=== PATIENT | female | born 1990 | race Caucasian/White ===

== ENCOUNTER 2018-02-15 21:33 | Emergency (ER) | payer OTHER ==
[2018-02-15 21:42] VITALS: RESP 18
[2018-02-15] MEDS ORDERED: SODIUM CHLORIDE 0.9% 1,000 ML IV STA ×2 (21:43)
[2018-02-15] MEDS ORDERED: SODIUM CHLORIDE 0.9% 500 ML IV STA (21:43)
[2018-02-15] MEDS ORDERED: LORazepam 2 MG/ML INJ IV STA (21:43)
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
[2018-02-15 21:56] LABS: Basophils # (A) 0.1 k/uL (0-0.2); Basophils % (A) 1 %; Eosinophils # (A) 0.1 k/uL (0-0.7); Eosinophils % (A) 1 %; HCT 42.4 % (34.0-46.0); HGB 14.5 gm/dL (11.4-16.0); Lymphocytes # (A) 1.3 k/uL (1.0-4.8); Lymphocytes % (A) 16 %; MCH 30.7 pg (25.0-35.0); MCHC 34.3 g/dL (31.0-37.0); MCV 89.3 fL (80.0-100.0); Mean Platelet Volume 7.2; Monocytes # (A) 0.4 k/uL (0-1.0); Monocytes % (A) 5 %; Neutrophils # (A) 6.1 k/uL (1.3-7.7); Neutrophils % (A) 76 %; Platelet Count 243 k/uL (150-450); RBC 4.74 m/uL (3.80-5.40); RDW 12.8 % (11.5-15.5); WBC 8.1 k/uL (3.8-10.6)
[2018-02-15 22:07] LABS: ALT 24 U/L (9-52); AST 18 U/L (14-36); Albumin 4.3 g/dL (3.5-5.0); Alkaline Phosphatase 62 U/L (38-126); Anion Gap 11 mmol/L; Blood Urea Nitrogen 9 mg/dL (7-17); Calcium 9.3 mg/dL (8.4-10.2); Carbon Dioxide 25 mmol/L (22-30); Chloride 105 mmol/L (98-107); Glucose 102 mg/dL (74-99); Sodium 141 mmol/L (137-145); Total Bilirubin 0.2 mg/dL (0.2-1.3); Total Protein 7.1 g/dL (6.3-8.2)
--- NOTE | 2018-02-15 22:36 | XR ---
EXAMINATION TYPE: XR chest 2V DATE OF EXAM: 02/15/2018 COMPARISON: 07/25/2008 HISTORY: Chest pain TECHNIQUE: Frontal and lateral views of the chest are obtained. FINDINGS: Heart and mediastinum are normal. Lungs are clear. Diaphragm is normal. Bony thorax is int act. There are chest leads. There is left axillary neurostimulator noted. IMPRESSION: Normal chest. No change.
[2018-02-15] MEDS ORDERED: KETOROLAC 30 MG/ML 1 ML VIAL IVP STA (22:40)
--- NOTE | 2018-02-15 22:45 | XR ---
EXAMINATION TYPE: XR cervical spine comp DATE OF EXAM: 02/15/2018 COMPARISON: NONE HISTORY: Neck pain TECHNIQUE: 5 views FINDINGS: Cervical vertebra have normal alignment. Posterior elements are intact. There is neurostimu lator over the left side of the neck. Atlantoaxial facet joint is normal. There are no cervical ribs. IMPRESSION: Normal cervical spine exam. I do not have old exam of the neurostimulator to compare.
[2018-02-15 23:38] VITALS: BP 94/54; PULSE 70; TEMP 97.9
== END 2018-02-15 23:42 | disposition home or self-care (01) ==
LOC: EC 21:33
DX: G40.909 Epilepsy, unspecified, not intractable, without status epilepticus (principal); Z91.018 Allergy to other foods; R53.83 Other fatigue; Z95.828 Presence of other vascular implants and grafts; Y08.89XA Assault by other specified means, initial encounter
CPT/HCPCS: 36415; 93005; 80053; 80201; 85025; 72050; 71046; 99285; 96374; 96375; 96361 ×2; J2060; J1885

== ENCOUNTER 2018-03-17 18:46 | Emergency (ER) | payer OTHER ==
[2018-03-17 18:55] VITALS: RESP 18; TEMP 98.7
[2018-03-17] MEDS ORDERED: ONDANSETRON 4 MG ODT STARTER PACK 2 TAB BTL PO STA (19:19)
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
[2018-03-17] MEDS ORDERED: SULFAMETH-TMP DS STARTER PACK 2 TAB BTL PO STA (21:05)
[2018-03-17 21:23] VITALS: BP 117/65; PULSE 73
== END 2018-03-17 21:22 | disposition home or self-care (01) ==
LOC: EC 18:46
DX: L03.114 Cellulitis of left upper limb (principal); R11.2 Nausea with vomiting, unspecified; G40.909 Epilepsy, unspecified, not intractable, without status epilepticus; Z79.899 Other long term (current) drug therapy; Z91.018 Allergy to other foods
CPT/HCPCS: 81025; 87070; 87205; 99284; S0119; 87077; 87186

== ENCOUNTER → 2018-04-18 | Outpatient (CLI) | payer OTHER ==
--- NOTE | 2018-04-18 15:16 | XR ---
EXAMINATION TYPE: XR lumbosacral spine min 4V DATE OF EXAM: 04/18/2018 COMPARISON: None HISTORY: Polyarthritis TECHNIQUE: Five-view lumbar spine FINDINGS: There 5 lumbar-type vertebral bodies. The pedicles are intact. There is attempted lumbariza tion of S1. There is some mild rotoscoliosis. No spondylolytic defects are evident. Facet degenerativ e changes present lower lumbar spine. Disc heights are preserved. Vertebral body heights are preserve d. IMPRESSION: 1. No acute osseous abnormality lumbar spine
--- NOTE | 2018-04-18 15:18 | XR ---
EXAMINATION TYPE: XR pelvis AP view DATE OF EXAM: 04/18/2018 COMPARISON: None HISTORY: Polyarthritis TECHNIQUE: AP pelvis FINDINGS: Femoral heads articulate with the acetabulum. No acute fractures are evident. Sacroiliac ahsan ints and symphysis pubis are normal. There is a sclerotic area with ill-defined margins within the mi d right ilium above the right hip. IMPRESSION: 1. No acute osseous abnormality. 2. Sclerotic lesion right mid ilium above the right hip joint space.
--- NOTE | 2018-04-18 15:19 | XR ---
EXAMINATION TYPE: XR foot complete bilateral DATE OF EXAM: 04/18/2018 COMPARISON: None HISTORY: Polyarthritis TECHNIQUE: Bilateral feet 3 views each FINDINGS: Right foot: Mild hallux valgus deformity is present. Joint spaces are preserved. No acute fractures a re evident. Soft tissues are normal. Left foot: Mild hallux valgus deformity is present. Joint spaces are preserved. No acute fractures ar e evident. Plantar calcaneal heel spur is present. Soft tissues are normal. IMPRESSION: 1. No acute osseous abnormality. 2. Bilateral hallux valgus deformity. 3. Left calcaneal heel spur
--- NOTE | 2018-04-18 15:20 | XR ---
EXAMINATION TYPE: XR ankle complete bilateral DATE OF EXAM: 04/18/2018 COMPARISON: None HISTORY: Polyarthritis TECHNIQUE: Three-view bilateral ankles FINDINGS: Left ankle: Ankle mortise is intact. Soft tissues are normal. No acute fractures are evident. Plantar calcaneal heel spur is present. Right ankle: Ankle mortise is intact. Soft tissues are normal. No acute fractures are evident. IMPRESSION: 1. No acute osseous abnormalities bilateral ankles. 2. Left calcaneal heel spur
== END | disposition home or self-care (01) ==
LOC: RADXRMAIN 14:08
PROVIDERS: ATTEND Internal Medicine Rheumatology
DX: M25.851 Other specified joint disorders, right hip (principal); M20.12 Hallux valgus (acquired), left foot; M20.11 Hallux valgus (acquired), right foot; M77.32 Calcaneal spur, left foot; M13.0 Polyarthritis, unspecified
CPT/HCPCS: 72110; 72170

== ENCOUNTER 2018-06-06 17:04 | Emergency (ER) | payer OTHER ==
[2018-06-06 17:17] VITALS: TEMP 98.4
[2018-06-06] MEDS ORDERED: METOCLOPRAMIDE 5 MG/ML 2 ML VIAL IM STA (17:26)
--- NOTE | 2018-06-06 17:28 | ED ---
General Adult HPI - General Chief complaint: Headache Stated complaint: Head injury from seizure yesterday Time Seen by Provider: 06/06/18 17:22 Source: patient, RN notes reviewed Mode of arrival: ambulatory Limitations: no limitations - History of Present Illness Initial comments: Patient is a pleasant 27-year-old female presenting to the emergency department with complaint of headache. Onset of headache was following seizure yesterday. Patient does have chronic seizures and does have a vagus nerve stimulator for this. Patient believes she hit her head during seizure yesterday and is having diffuse discomfort since that time. Discomfort is moderate to severe. Patient has some nausea with no vomiting. Patient has been taking her seizure medication. No weakness. No confusion. No vomiting. No fever. - Related Data Home Medications Medication Instructions Recorded Confirmed SUMAtriptan SUCCINATE [Imitrex] 100 mg PO DAILY PRN 02/15/18 06/06/18 Eslicarbazepine Acetate [Aptiom] 800 mg PO BID 06/06/18 06/06/18 Topiramate [Trokendi Xr] 200 mg PO BID 06/06/18 06/06/18 Allergies Allergy/AdvReac Type Severity Reaction Status Date / Time strawberries Allergy Rash/Hives Uncoded 06/06/18 17:17 Review of Systems ROS Statement: Those systems with pertinent positive or pertinent negative responses have been documented in the HPI. ROS Other: All systems not noted in ROS Statement are negative. Constitutional: Denies: fever Eyes: Denies: eye pain ENT: Denies: ear pain Respiratory: Denies: cough Cardiovascular: Denies: chest pain Endocrine: Denies: fatigue Gastrointestinal: Denies: abdominal pain Genitourinary: Denies: dysuria Musculoskeletal: Denies: back pain Skin: Denies: rash Neurological: Reports: headache. Denies: weakness, confusion Past Medical History Past Medical History: Seizure Disorder Additional Past Medical History / Comment(s): lupus History of Any Multi-Drug Resistant Organisms: None Reported Past Surgical History: No Surgical Hx Reported Additional Past Surgical History / Comment(s): Vagus nerve stimulator Past Psychological History: Anxiety Smoking Status: Never smoker Past Alcohol Use History: None Reported Past Drug Use History: None Reported General Exam Limitations: no limitations General appearance: alert, in no apparent distress Head exam: Present: normocephalic, other (Head is diffusely tender without palpable soft tissue swelling) Eye exam: Present: normal appearance, PERRL, EOMI. Absent: nystagmus ENT exam: Present: normal oropharynx Neck exam: Present: normal inspection. Absent: tenderness Respiratory exam: Present: normal lung sounds bilaterally Cardiovascular Exam: Present: regular rate, normal rhythm GI/Abdominal exam: Present: soft. Absent: tenderness Extremities exam: Present: normal inspection Neurological exam: Present: alert, oriented X3, CN II-XII intact. Absent: motor sensory deficit Expanded Neurological exam: Present: protecting the airway Patient oriented to: Present: person, place, time Speech: Present: fluid speech Cranial nerves: EOM's Intact: Normal, Facial Sensation: Normal Sensory exam: Upper Extremity Light Touch: Normal, Lower Extremity Light Touch: Normal Motor strength exam: RUE: 5, LUE: 5, RLE: 5, LLE: 5 Eye Response: (4) open spontaneously Motor Response: (6) obeys commands Verbal Response: (5) oriented Psychiatric exam: Present: normal affect, normal mood Skin exam: Present: normal color Course Vital Signs 06/06/18 06/06/18 17:15 18:26 Temperature 98.4 F Pulse Rate 82 87 Respiratory 18 18 Rate Blood Pressure 109/69 116/80 O2 Sat by Pulse 95 98 Oximetry Medical Decision Making - Medical Decision Making Patient reevaluated and improved. Patient states headache is tolerable and does not feel she needs further medication. - Radiology Data Radiology results: report reviewed (Computed tomography scan of the brain reveals no acute process) Disposition Clinical Impression: Headache Disposition: HOME SELF-CARE Condition: Stable Instructions: Acute Headache (ED) Additional Instructions: Please follow-up with your primary care physician and neurologist in the next couple days for recheck. Return for increased pain, fevers, weakness, persistent seizures, worsening symptoms or other concerns. Is patient prescribed a controlled substance at d/c from ED?: No Referrals: Marina Recinos MD [Primary Care Provider] - 1-2 days Time of Disposition: 18:50
--- NOTE | 2018-06-06 18:12 | CT ---
EXAMINATION TYPE: CT brain wo con DATE OF EXAM: 06/06/2018 COMPARISON: 02/08/2010 HISTORY: Seizure and fall. CT DLP: 1094 mGycm. Automated Exposure Control for Dose Reduction was Utilized. TECHNIQUE: CT scan of the head is performed without contrast. FINDINGS: Ventricles and sulci appear normal. There is no mass effect nor midline shift. There is no sign of intracranial hemorrhage. The calvarium is intact. IMPRESSION: Negative CT scan of the brain. No change.
[2018-06-06 18:53] VITALS: BP 119/74; PULSE 96; RESP 19
== END 2018-06-06 18:54 | disposition home or self-care (01) ==
LOC: EC 17:04
DX: R51 Headache (principal); G40.909 Epilepsy, unspecified, not intractable, without status epilepticus; Z79.899 Other long term (current) drug therapy; Z91.018 Allergy to other foods; W22.8XXA Striking against or struck by other objects, initial encounter
CPT/HCPCS: 70450; 99284; 96372; J2765

== ENCOUNTER 2018-07-24 12:23 | Emergency (ER) | payer OTHER ==
[2018-07-24 12:31] VITALS: RESP 18
[2018-07-24] MEDS ORDERED: SODIUM CHLORIDE 0.9% 500 ML 500 ML IV ONE (12:43)
--- NOTE | 2018-07-24 12:43 | ED ---
General Adult HPI - General Chief complaint: Recheck/Abnormal Lab/Rx Stated complaint: TREMORS Time Seen by Provider: 07/24/18 12:25 Source: patient, RN notes reviewed Mode of arrival: ambulatory Limitations: no limitations - History of Present Illness Initial comments: This is a 27-year-old female with past medical history significant for seizures. Patient states she is currently on her period and while at work she was starting to have some tremors which she has had before. Patient states the tremors in her arms last for about 30 minutes. Patient's boss wanted her to come to the ER get evaluated even though the symptoms have resolved for over an hour now. Patient denies any headache patient denies any numbness weakness. Patient states the symptoms have occurred in the past and they go away on their own and they have had no issues wants to go away. Patient denies any recent fever or chills. Patient denies any upper asked her symptoms. Patient denies any chest pain difficulty breathing or shortness of breath. Patient denies any palpitations. Patient denies abdominal pain patient denies nausea vomiting diarrhea. Patient states she thinks she might be a little bit dehydrated. - Related Data Home Medications Medication Instructions Recorded Confirmed Hydroxychloroquine Sulfate 200 mg PO BID 07/24/18 07/24/18 [Plaquenil] Allergies Allergy/AdvReac Type Severity Reaction Status Date / Time strawberries Allergy Rash/Hives Uncoded 07/24/18 12:27 Review of Systems ROS Statement: Those systems with pertinent positive or pertinent negative responses have been documented in the HPI. ROS Other: All systems not noted in ROS Statement are negative. Past Medical History Past Medical History: Seizure Disorder Additional Past Medical History / Comment(s): lupus History of Any Multi-Drug Resistant Organisms: None Reported Past Surgical History: No Surgical Hx Reported Additional Past Surgical History / Comment(s): Vagus nerve stimulator Past Psychological History: Anxiety Smoking Status: Never smoker Past Alcohol Use History: None Reported Past Drug Use History: None Reported General Exam - General Exam Comments Initial Comments: GENERAL: Patient is well-developed and well-nourished. Patient is nontoxic and well- hydrated and is in no acute distress. ENT: Neck is soft and supple. No significant lymphadenopathy is noted. Oropharynx is clear. Moist mucous membranes. Neck has full range of motion without eliciting any pain. EYES: The sclera were anicteric and conjunctiva were pink and moist. Extraocular movements were intact and pupils were equal round and reactive to light. Eyelids were unremarkable. PULMONARY: Unlabored respirations. Good breath sounds bilaterally. No audible rales rhonchi or wheezing was noted. CARDIOVASCULAR: There is a regular rate and rhythm without any murmurs gallops or rubs. ABDOMEN: Soft and nontender with normal bowel sounds. No palpable organomegaly was noted. There is no palpable pulsatile mass. SKIN: Skin is clear with no lesions or rashes and otherwise unremarkable. NEUROLOGIC: Patient is alert and oriented x3. Cranial nerves II through XII are grossly intact. Motor and sensory are also intact. Normal speech, volume and content. Symmetrical smile. MUSCULOSKELETAL: Normal extremities with adequate strength and full range of motion. No lower extremity swelling or edema. No calf tenderness. LYMPHATICS: No significant lymphadenopathy is noted PSYCHIATRIC: Normal psychiatric evaluation. Limitations: no limitations Course Vital Signs 07/24/18 12:27 Temperature 98.2 F Pulse Rate 106 H Respiratory 18 Rate Blood Pressure 114/81 O2 Sat by Pulse 97 Oximetry Medical Decision Making - Lab Data Result diagrams: 07/24/18 12:50 07/24/18 12:50 Lab Results 07/24/18 07/24/18 07/24/18 Range/Units 12:50 12:50 12:50 WBC 7.0 (3.8-10.6) k/uL RBC 4.59 (3.80-5.40) m/uL Hgb 14.2 (11.4-16.0) gm/dL Hct 42.4 (34.0-46.0) % MCV 92.4 (80.0-100.0) fL MCH 30.9 (25.0-35.0) pg MCHC 33.5 (31.0-37.0) g/dL RDW 13.1 (11.5-15.5) % Plt Count 240 (150-450) k/uL Neutrophils % 67 % Lymphocytes % 25 % Monocytes % 4 % Eosinophils % 3 % Basophils % 1 % Neutrophils # 4.7 (1.3-7.7) k/uL Lymphocytes # 1.7 (1.0-4.8) k/uL Monocytes # 0.3 (0-1.0) k/uL Eosinophils # 0.2 (0-0.7) k/uL Basophils # 0.0 (0-0.2) k/uL Sodium 141 (137-145) mmol/L Potassium 3.7 (3.5-5.1) mmol/L Chloride 107 (98-107) mmol/L Carbon Dioxide 23 (22-30) mmol/L Anion Gap 11 mmol/L BUN 7 (7-17) mg/dL Creatinine 0.74 (0.52-1.04) mg/dL Est GFR (CKD-EPI)AfAm >90 (>60 ml/min/1.73 sqM) Est GFR (CKD-EPI)NonAf >90 (>60 ml/min/1.73 sqM) Glucose 76 (74-99) mg/dL Calcium 9.9 (8.4-10.2) mg/dL Total Bilirubin 0.3 (0.2-1.3) mg/dL AST 17 (14-36) U/L ALT 22 (9-52) U/L Alkaline Phosphatase 52 (38-126) U/L Total Protein 7.6 (6.3-8.2) g/dL Albumin 4.4 (3.5-5.0) g/dL Urine Color Colorless Urine Appearance Clear (Clear) Urine pH 5.5 (5.0-8.0) Ur Specific [place] 1.004 (1.001-1.035) Urine Protein Negative (Negative) Urine Glucose (UA) Negative (Negative) Urine Ketones Negative (Negative) Urine Blood Moderate H (Negative) Urine Nitrite Negative (Negative) Urine Bilirubin Negative (Negative) Urine Urobilinogen <2.0 (<2.0) mg/dL Ur Leukocyte Esterase Negative (Negative) Urine RBC <1 (0-5) /hpf Urine WBC 2 (0-5) /hpf Ur Squamous Epith Cells <1 (0-4) /hpf Urine Bacteria Rare H (None) /hpf Urine Mucus Rare H (None) /hpf Urine HCG, Qual (Not Detectd) Urine Opiates Screen Not Detected (NotDetected) Ur Oxycodone Screen Not Detected (NotDetected) Urine Methadone Screen Not Detected (NotDetected) Ur Propoxyphene Screen Not Detected (NotDetected) Ur Barbiturates Screen Not Detected (NotDetected) U Tricyclic Antidepress Not Detected (NotDetected) Ur Phencyclidine Scrn Not Detected (NotDetected) Ur Amphetamines Screen Not Detected (NotDetected) U Methamphetamines Scrn Not Detected (NotDetected) U Benzodiazepines Scrn Not Detected (NotDetected) Urine Cocaine Screen Not Detected (NotDetected) U Marijuana (THC) Screen Not Detected (NotDetected) 07/24/18 Range/Units 12:50 WBC (3.8-10.6) k/uL RBC (3.80-5.40) m/uL Hgb (11.4-16.0) gm/dL Hct (34.0-46.0) % MCV (80.0-100.0) fL MCH (25.0-35.0) pg MCHC (31.0-37.0) g/dL RDW (11.5-15.5) % Plt Count (150-450) k/uL Neutrophils % % Lymphocytes % % Monocytes % % Eosinophils % % Basophils % % Neutrophils # (1.3-7.7) k/uL Lymphocytes # (1.0-4.8) k/uL Monocytes # (0-1.0) k/uL Eosinophils # (0-0.7) k/uL Basophils # (0-0.2) k/uL Sodium (137-145) mmol/L Potassium (3.5-5.1) mmol/L Chloride (98-107) mmol/L Carbon Dioxide (22-30) mmol/L Anion Gap mmol/L BUN (7-17) mg/dL Creatinine (0.52-1.04) mg/dL Est GFR (CKD-EPI)AfAm (>60 ml/min/1.73 sqM) Est GFR (CKD-EPI)NonAf (>60 ml/min/1.73 sqM) Glucose (74-99) mg/dL Calcium (8.4-10.2) mg/dL Total Bilirubin (0.2-1.3) mg/dL AST (14-36) U/L ALT (9-52) U/L Alkaline Phosphatase (38-126) U/L Total Protein (6.3-8.2) g/dL Albumin (3.5-5.0) g/dL Urine Color Urine Appearance (Clear) Urine pH (5.0-8.0) Ur Specific [place] (1.001-1.035) Urine Protein (Negative) Urine Glucose (UA) (Negative) Urine Ketones (Negative) Urine Blood (Negative) Urine Nitrite (Negative) Urine Bilirubin (Negative) Urine Urobilinogen (<2.0) mg/dL Ur Leukocyte Esterase (Negative) Urine RBC (0-5) /hpf Urine WBC (0-5) /hpf Ur Squamous Epith Cells (0-4) /hpf Urine Bacteria (None) /hpf Urine Mucus (None) /hpf Urine HCG, Qual Not Detected (Not Detectd) Urine Opiates Screen (NotDetected) Ur Oxycodone Screen (NotDetected) Urine Methadone Screen (NotDetected) Ur Propoxyphene Screen (NotDetected) Ur Barbiturates Screen (NotDetected) U Tricyclic Antidepress (NotDetected) Ur Phencyclidine Scrn (NotDetected) Ur Amphetamines Screen (NotDetected) U Methamphetamines Scrn (NotDetected) U Benzodiazepines Scrn (NotDetected) Urine Cocaine Screen (NotDetected) U Marijuana (THC) Screen (NotDetected) Disposition Clinical Impression: Occasional tremors Disposition: HOME SELF-CARE Condition: Good Instructions: Tremors (ED) Is patient prescribed a controlled substance at d/c from ED?: No Referrals: Marina Recinos MD [Primary Care Provider] - 1-2 days Time of Disposition: 14:05
[2018-07-24 13:43] LABS: Appearance,Urine Clear (Clear); Bacteria,Urine Rare /hpf; Bilirubin,Urine Negative (Negative); Blood,Urine Moderate (Negative); Color,Urine Colorless; Glucose,Urine (UA) Negative (Negative); Ketones,Urine Negative (Negative); Leukocyte Esterase,Urine Negative (Negative); Mucus,Urine Rare /hpf; Nitrite,Urine Negative (Negative); PH, Urine 5.5 (5.0-8.0); Protein,Urine Negative (Negative); RBC,Urine <1 /hpf (0-5); Specific Gravity,Urine 1.004 (1.001-1.035); Squamous Epithelial Cell,Urine <1 /hpf (0-4); Urobilinogen,Urine <2.0 mg/dL (<2.0); WBC,Urine 2 /hpf (0-5)
[2018-07-24 13:47] LABS: Basophils % (A) 1 %; Eosinophils # (A) 0.2 k/uL (0-0.7); Eosinophils % (A) 3 %; HCT 42.4 % (34.0-46.0); HGB 14.2 gm/dL (11.4-16.0); Lymphocytes # (A) 1.7 k/uL (1.0-4.8); Lymphocytes % (A) 25 %; MCH 30.9 pg (25.0-35.0); MCHC 33.5 g/dL (31.0-37.0); MCV 92.4 fL (80.0-100.0); Mean Platelet Volume 6.9; Monocytes # (A) 0.3 k/uL (0-1.0); Monocytes % (A) 4 %; Neutrophils # (A) 4.7 k/uL (1.3-7.7); Neutrophils % (A) 67 %; Platelet Count 240 k/uL (150-450); RBC 4.59 m/uL (3.80-5.40); RDW 13.1 % (11.5-15.5)
[2018-07-24 13:48] LABS: Amphetamine Screen,Urine Not Detected (NotDetected); Barbiturate Screen,Urine Not Detected (NotDetected); Benzodiazepines Screen,Urine Not Detected (NotDetected); Cocaine Screen,Urine Not Detected (NotDetected); Methadone Screen, Urine Not Detected (NotDetected); Opiate Screen,Urine Not Detected (NotDetected); Oxycodone Screen, Urine Not Detected (NotDetected); Phencyclidine Screen,Urine Not Detected (NotDetected); Tricyclic Antidepressant,Urine Not Detected (NotDetected); Urn Cannabinoid Scrn Not Detected (NotDetected)
[2018-07-24 13:49] LABS: ALT 22 U/L (9-52); AST 17 U/L (14-36); Albumin 4.4 g/dL (3.5-5.0); Alkaline Phosphatase 52 U/L (38-126); Anion Gap 11 mmol/L; Blood Urea Nitrogen 7 mg/dL (7-17); Calcium 9.9 mg/dL (8.4-10.2); Carbon Dioxide 23 mmol/L (22-30); Chloride 107 mmol/L (98-107); Glucose 76 mg/dL (74-99); Potassium 3.7 mmol/L (3.5-5.1); Sodium 141 mmol/L (137-145); Total Bilirubin 0.3 mg/dL (0.2-1.3); Total Protein 7.6 g/dL (6.3-8.2)
[2018-07-24 14:30] VITALS: BP 111/74; PULSE 90; TEMP 98
== END 2018-07-24 14:30 | disposition home or self-care (01) ==
LOC: EC 12:23
DX: R25.1 Tremor, unspecified (principal); M32.9 Systemic lupus erythematosus, unspecified; Z79.899 Other long term (current) drug therapy; Z91.018 Allergy to other foods
CPT/HCPCS: 36415; 80053; 80306; 81001; 81025; 85025; 96360; 99283

== ENCOUNTER → 2018-11-13 | Outpatient (CLI) | payer OTHER | LOC: LABWHC1 07:13 | PROVIDERS: ATTEND Obstetrics & Gynecology | DX: N91.2 Amenorrhea, unspecified (principal) | CPT/HCPCS: 36415; 84702 ==

== ENCOUNTER 2019-02-11 15:27 | Emergency (ER) | payer OTHER ==
[2019-02-11 15:40] VITALS: BP 124/75; PULSE 83; RESP 16; TEMP 98.8
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
== END 2019-02-11 17:15 | disposition home or self-care (01) ==
LOC: EC 15:27
DX: M79.631 Pain in right forearm (principal); S80.01XA Contusion of right knee, initial encounter; M32.9 Systemic lupus erythematosus, unspecified; Z79.899 Other long term (current) drug therapy; Z91.018 Allergy to other foods; V86.56XA Driver of dirt bike or motor/cross bike injured in nontraffic accident, initial encounter; Y92.69 Other specified industrial and construction area as the place of occurrence of the external cause; Y99.0 Civilian activity done for income or pay
CPT/HCPCS: 99283

== ENCOUNTER 2019-03-14 13:48 | Emergency (ER) | payer OTHER ==
[2019-03-14 14:01] VITALS: RESP 18
[2019-03-14] MEDS ORDERED: ONDANSETRON ODT 4 MG TAB PO STA (14:54)
[2019-03-14] MEDS ORDERED: DEXAMETHASONE SOD PHOSPHATE 4 MG/ML 1 ML VIAL IM STA (14:56)
[2019-03-14] MEDS ORDERED: AMOXICILLIN 500 MG CAP PO STA (14:57)
--- NOTE | 2019-03-14 15:10 | ED ---
ENT HPI - General Chief complaint: ENT Stated complaint: tonsillitis Time Seen by Provider: 03/14/19 14:00 Source: patient Mode of arrival: ambulatory Limitations: no limitations - History of Present Illness Initial comments: Patient is a 28-year-old feel presents emergency Department with a sore throat. Patient states the symptoms started 3 days ago and is gradually increasing severity. Patient reports the pain is exacerbated when swallowing. Patient denies drooling, no meningismus or changes in voice. Patient does report nausea but denies vomiting or diarrhea. Patient denies any abdominal pain, fever, chest pain, chest pain or shortness of breath. Patient denies cough but does report bilateral clear rhinorrhea. - Related Data Home Medications Medication Instructions Recorded Confirmed Hydroxychloroquine Sulfate 200 mg PO BID 07/24/18 07/24/18 [Plaquenil] Previous Rx's Medication Instructions Recorded Amoxicillin 500 mg PO Q8H #30 capsule 03/14/19 Allergies Allergy/AdvReac Type Severity Reaction Status Date / Time strawberries Allergy Rash/Hives Uncoded 03/14/19 13:59 Review of Systems ROS Statement: Those systems with pertinent positive or pertinent negative responses have been documented in the HPI. ROS Other: All systems not noted in ROS Statement are negative. Past Medical History Past Medical History: Seizure Disorder Additional Past Medical History / Comment(s): lupus History of Any Multi-Drug Resistant Organisms: None Reported Past Surgical History: No Surgical Hx Reported Additional Past Surgical History / Comment(s): Vagus nerve stimulator Past Psychological History: Anxiety Smoking Status: Never smoker Past Alcohol Use History: None Reported Past Drug Use History: None Reported General Exam Limitations: no limitations General appearance: alert, in no apparent distress Head exam: Present: atraumatic, normocephalic, normal inspection Eye exam: Present: normal appearance, PERRL, EOMI Pupils: Present: normal accommodation ENT exam: Present: mucous membranes moist, TM's normal bilaterally, normal external ear exam. Absent: normal exam, normal oropharynx (Bilateral enlarged tonsils with exudates and erythema) Neck exam: Present: normal inspection, full ROM, lymphadenopathy (Bilateral submandibular and anterior cervical lymph nodes) Respiratory exam: Present: normal lung sounds bilaterally Cardiovascular Exam: Present: regular rate, normal rhythm, normal heart sounds Extremities exam: Present: normal inspection, full ROM Back exam: Present: normal inspection, full ROM Neurological exam: Present: alert, oriented X3 Psychiatric exam: Present: normal affect, normal mood Skin exam: Present: warm, intact, normal color Course Vital Signs 03/14/19 14:00 Temperature 98.8 F Pulse Rate 105 H Respiratory 18 Rate Blood Pressure 104/69 O2 Sat by Pulse 97 Oximetry Medical Decision Making - Medical Decision Making Patient is a 28-year-old female presents emergency Department with a sore throat. Rapid strep was negative. Patient does fit the C[facility] criteria for strep pharyngitis. I am Going treat the patient based on clinical presentation with a 10 day course of amoxicillin. Patient was also given Zofran to alleviate the nausea and 4 mg of Decadron to decrease the symptoms. Strict return pa rameters were thoroughly discussed with patient who is understanding and agreeable. Case discussed with physician. - Lab Data Lab Results 03/14/19 Range/Units 14:20 Group A Strep Rapid Negative (Negative) Disposition Clinical Impression: Sore throat Disposition: HOME SELF-CARE Condition: Stable Instructions (If sedation given, give patient instructions): Strep Throat (DC) Prescriptions: Amoxicillin 500 mg PO Q8H #30 capsule Is patient prescribed a controlled substance at d/c from ED?: No Referrals: Marina Recinos MD [Primary Care Provider] - 1-2 days Time of Disposition: 15:17
[2019-03-14 15:28] VITALS: BP 113/72; PULSE 101; TEMP 99
== END 2019-03-14 15:27 | disposition home or self-care (01) ==
LOC: EC 13:48
DX: J02.9 Acute pharyngitis, unspecified (principal); R11.0 Nausea; J35.1 Hypertrophy of tonsils; Z79.899 Other long term (current) drug therapy; Z91.018 Allergy to other foods
CPT/HCPCS: 87081; 87430; 99283; 96372; J1100

== ENCOUNTER 2019-04-29 | Emergency (ER) | payer OTHER ==
--- NOTE | 2019-04-29 00:13 | ED ---
Seizure HPI - General Stated Complaint: Foot pain post seizure/fall Time Seen by Provider: 04/29/19 00:05 - History of Present Illness Initial Comments: This patient is 28-year-old woman who presents to be evaluated for left foot injury. She states that she had had a seizure at home. Patient has a known history of seizures and is well controlled with her vagus nerve stimulator. The patient states that she was informed that the battery for her VNS is getting low and she is due to have this replaced soon. Patient states she did have a seizure tonight and fell and then others result of the fall she struck her left foot which is causing moderate amount of pain. She states the pain is much worse if she attempts to stand up on it. She describes it as sharp aching, constant. The pain was a little better after she received fentanyl injection fr [facility]. She denies numbness of the foot MD Complaint: seizure -: minutes(s) Description of Episode: tonic-clonic movement Witnessed: yes - by bystander Trauma: Yes (Left foot injury) Seizure History: known seizure disorder Place: home Possible Precipitating Event: none Associated Symptoms: denies other symptoms - Related Data Home Medications Medication Instructions Recorded Confirmed Hydroxychloroquine Sulfate 200 mg PO BID 07/24/18 07/24/18 [Plaquenil] Previous Rx's Medication Instructions Recorded Amoxicillin 500 mg PO Q8H #30 capsule 03/14/19 Hydrocodone/Acetaminophen [[place] 1 each PO Q6HR PRN #20 tab 04/29/19 5-325] Ibuprofen 800 mg PO TID #20 tablet 04/29/19 Allergies Allergy/AdvReac Type Severity Reaction Status Date / Time strawberries Allergy Rash/Hives Uncoded 04/29/19 00:13 Review of Systems ROS Statement: Those systems with pertinent positive or pertinent negative responses have been documented in the HPI. ROS Other: All systems not noted in ROS Statement are negative. Constitutional: Denies: fever Eyes: Denies: vision change Respiratory: Denies: cough, dyspnea Cardiovascular: Denies: chest pain, palpitations Gastrointestinal: Denies: abdominal pain, vomiting, diarrhea Musculoskeletal: Reports: as per HPI, joint swelling, arthralgia Skin: Denies: rash Neurological: Denies: headache, weakness, numbness, confusion Past Medical History Past Medical History: Seizure Disorder Additional Past Medical History / Comment(s): lupus History of Any Multi-Drug Resistant Organisms: None Reported Past Surgical History: No Surgical Hx Reported Additional Past Surgical History / Comment(s): Vagus nerve stimulator Past Psychological History: Anxiety Smoking Status: Never smoker Past Alcohol Use History: None Reported Past Drug Use History: None Reported General Exam General appearance: alert, in no apparent distress Head exam: Present: atraumatic, normocephalic Eye exam: Present: normal appearance. Absent: scleral icterus, conjunctival injection ENT exam: Present: normal oropharynx Neck exam: Present: normal inspection, full ROM. Absent: tenderness Respiratory exam: Present: normal lung sounds bilaterally. Absent: respiratory distress, wheezes, rales, rhonchi, stridor, chest wall tenderness Cardiovascular Exam: Present: regular rate, normal rhythm, normal heart sounds. Absent: systolic murmur, diastolic murmur, rubs, gallop GI/Abdominal exam: Present: soft. Absent: distended, tenderness, guarding, rebound, rigid, mass Extremities exam: Present: full ROM, tenderness (Over the fifth metatarsal), normal capillary refill, other (Contusion and small amount of swelling to the lateral aspect of the left foot). Absent: calf tenderness Back exam: Present: normal inspection. Absent: CVA tenderness (R), CVA tenderness (L), vertebral tenderness Neurological exam: Present: alert, oriented X3, CN II-XII intact. Absent: motor sensory deficit Skin exam: Present: warm, dry, intact, normal color. Absent: rash Course Vital Signs 04/29/19 04/29/19 00:02 02:22 Temperature 98.9 F 98.8 F Pulse Rate 97 74 Respiratory 19 18 Rate Blood Pressure 120/68 127/75 O2 Sat by Pulse 100 97 Oximetry Procedures - Orthopedic Splinting/Casting Injury #1 Side: left Lower Extremity Injury Location: foot Lower Extremity Immobilizer: posterior splint Other Orthopedic Equipment: crutches (Prescribed) Medical Decision Making - EKG Data -: EKG Interpreted by Me EKG shows normal: sinus rhythm, axis (Normal), intervals (Normal), QRS complexes (Normal), ST-T waves (Normal) Rate: normal (Rate 73 bpm) Disposition Clinical Impression: Generalized seizure, Metatarsal fracture Disposition: HOME SELF-CARE Condition: Good Instructions (If sedation given, give patient instructions): Foot Fracture in Adults (ED), Recurrent Seizures in Adults (ED) Prescriptions: Ibuprofen 800 mg PO TID #20 tablet Hydrocodone/Acetaminophen [[place] 5-325] 1 each PO Q6HR PRN #20 tab PRN Reason: Pain Is patient prescribed a controlled substance at d/c from ED?: Yes When asked, does pt state using other controlled substances?: No If prescribed controlled substance>3 days was MAPS reviewed?: Prescribed <3 Days If opioid is for acute pain is fill amount 7 days or less?: Yes If Rx opioid, was Start Talking consent form obtained?: Yes Referrals: Marina Recinos MD [Primary Care Provider] - 1-2 days Yonas Chen DO [Doctor of Osteopathic Medicine] - 1-2 days
[2019-04-29] MEDS ORDERED: IBUPROFEN 400 MG TAB PO STA (00:16)
[2019-04-29] MEDS ORDERED: HYDROcodone/APAP 5-325MG 1 EACH TAB PO STA (00:26)
--- NOTE | 2019-04-29 01:40 | XR ---
EXAM: XR Left Foot Complete, 3 or More Views CLINICAL HISTORY: ITS.REASON XR Reason: Pain Fall. TECHNIQUE: Frontal, lateral and oblique views of the left foot. COMPARISON: 04/18/18 FINDINGS/IMPRESSION: Comminuted fracture of the fifth metatarsal shaft. Soft tissue swelling. Plantar calcaneal enthesophyte again noted.
[2019-04-29 02:23] VITALS: BP 127/75; PULSE 74; RESP 18; TEMP 98.8
== END 2019-04-29 02:43 | disposition home or self-care (01) ==
LOC: EC
DX: S92.352A Displaced fracture of fifth metatarsal bone, left foot, initial encounter for closed fracture (principal); G40.409 Other generalized epilepsy and epileptic syndromes, not intractable, without status epilepticus; M32.9 Systemic lupus erythematosus, unspecified; Z91.018 Allergy to other foods; Z79.899 Other long term (current) drug therapy; Z96.89 Presence of other specified functional implants; W10.9XXA Fall (on) (from) unspecified stairs and steps, initial encounter; Y92.009 Unspecified place in unspecified non-institutional (private) residence as the place of occurrence of the external cause
CPT/HCPCS: 29515; 99285

== ENCOUNTER 2019-08-26 12:54 | Emergency (ER) | payer OTHER ==
[2019-08-26 13:49] VITALS: BP 122/87; RESP 18; TEMP 97.8
[2019-08-26] MEDS ORDERED: IPRATROPIUM-ALBUTEROL 3 ML NEB INHALATION STA (14:10)
[2019-08-26] MEDS ORDERED: ONDANSETRON ODT 4 MG TAB PO STA (14:11)
--- NOTE | 2019-08-26 14:37 | XR ---
EXAMINATION TYPE: XR chest 2V DATE OF EXAM: 08/26/2019 COMPARISON: 02/15/2018 HISTORY: 28-year-old female with cough TECHNIQUE: PA and lateral views FINDINGS: Left-sided anterior chest wall generator device. Single lead extends up to the base of the left neck. Heart normal size. Aorta and pulmonary vasculature within normal limits. No consolidation or pleural effusion. IMPRESSION: No acute cardiopulmonary process.
[2019-08-26 14:52] VITALS: PULSE 116
--- NOTE | 2019-08-26 15:38 | ED ---
URI HPI - General Chief Complaint: Upper Respiratory Infection Stated Complaint: cough/headache Time Seen by Provider: 08/26/19 13:45 Source: patient Mode of arrival: ambulatory Limitations: no limitations - History of Present Illness Initial Comments: The patient is a 28 year old female with past medical history of seizure disorder who presents emergency room with reported cough and nasal congestion. She states that her symptoms started 2 days ago. It is comprised of nasal congestion and nonproductive cough. Also reports to mild a scratchy throat. She has a history of asthma. States that she's been using her inhaler at home which she normally does not have to use. States that it has been helping her cough. She denies any shortness of breath. No fevers or chills. She has not taken any other medications [id number]. Admits to sick contacts which includes her mother who was hospitalized for pneumonia. She denies any chest pain. denies any chest palpitations however the patient's heart rate is notable to be mildly elevated. Patient reports this is common for her. No history of DVT or PE. Denies abdominal pain. Does admit to some loose watery stools. Denies melanotic stools or hematochezia. Denies any urinary changes to include dysuria, hematuria or difficulty voiding. Denies concern for . No abnormal vaginal bleeding or discharge. She attempted to call her primary care office however they did not have any appointments available and therefore was sent into the emergency room for evaluation. There are no alleviating, precipitating or modifying factors. - Related Data Home Medications Medication Instructions Recorded Confirmed Hydroxychloroquine Sulfate 200 mg PO BID 07/24/18 07/24/18 [Plaquenil] Previous Rx's Medication Instructions Recorded Amoxicillin 500 mg PO Q8H #30 capsule 03/14/19 Hydrocodone/Acetaminophen [[place] 1 each PO Q6HR PRN #20 tab 04/29/19 5-325] Ibuprofen 800 mg PO TID #20 tablet 04/29/19 Azithromycin [Zithromax Z-pack] 250 mg PO DIRECTED #1 pack 08/26/19 predniSONE 20 mg PO BID #10 tab 08/26/19 Allergies Allergy/AdvReac Type Severity Reaction Status Date / Time strawberries Allergy Rash/Hives Uncoded 08/26/19 13:48 Review of Systems ROS Statement: Those systems with pertinent positive or pertinent negative responses have been documented in the HPI. ROS Other: All systems not noted in ROS Statement are negative. Past Medical History Past Medical History: Seizure Disorder Additional Past Medical History / Comment(s): lupus History of Any Multi-Drug Resistant Organisms: None Reported Past Surgical History: No Surgical Hx Reported Additional Past Surgical History / Comment(s): Vagus nerve stimulator Past Psychological History: Anxiety Smoking Status: Never smoker Past Alcohol Use History: None Reported Past Drug Use History: None Reported General Exam Limitations: no limitations General appearance: alert, in no apparent distress Head exam: Present: atraumatic, normocephalic, normal inspection Eye exam: Present: normal appearance, PERRL, EOMI. Absent: scleral icterus, conjunctival injection, periorbital swelling ENT exam: Present: mucous membranes moist, other (bilateral enlarged turbinates. Nasal congestion.) Neck exam: Present: normal inspection. Absent: tenderness, meningismus, lymphadenopathy Respiratory exam: Present: normal lung sounds bilaterally. Absent: respiratory distress, wheezes, rales, rhonchi, stridor Cardiovascular Exam: Present: normal rhythm, tachycardia, normal heart sounds. Absent: systolic murmur, diastolic murmur, rubs, gallop, clicks GI/Abdominal exam: Present: soft, normal bowel sounds. Absent: distended, tenderness, guarding, rebound, rigid Extremities exam: Present: normal inspection, full ROM, normal capillary refill. Absent: tenderness, pedal edema, joint swelling, calf tenderness Back exam: Present: normal inspection Neurological exam: Present: alert, oriented X3, CN II-XII intact Psychiatric exam: Present: normal affect, normal mood Skin exam: Present: warm, dry, intact, normal color. Absent: rash Course Vital Signs 08/26/19 08/26/19 08/26/19 13:47 14:44 14:50 Temperature 97.8 F Pulse Rate 117 H 120 H 116 H Respiratory 18 Rate Blood Pressure 122/87 O2 Sat by Pulse 97 Oximetry 08/26/19 15:57 Temperature Pulse Rate Respiratory Rate Blood Pressure O2 Sat by Pulse 99 Oximetry Medical Decision Making - Medical Decision Making Upon arrival the patient was placed into room 33. A thorough history and physical exam was performed. Patient does admit to mild nausea therefore I did provide her with a dose of Zofran. I also provided her with a DuoNeb breathing treatment. The patient was swabbed for influenza which was negative. Chest x- ray was performed which demonstrates no infiltration. I did discuss results with the patient. She does feel improved. I instructed her to follow up with her primary care physician in 2-4 days. Return to the emergency room for any worsening symptoms. The patient was in agreement with the treatment plan she was discharged home in stable condition - Lab Data Lab Results 08/26/19 Range/Units 14:15 Influenza Type A RNA Not Detected (Not Detectd) Influenza Type B (PCR) Not Detected (Not Detectd) Disposition Clinical Impression: Nasal congestion, Cough Disposition: HOME SELF-CARE Condition: Stable Instructions (If sedation given, give patient instructions): Upper Respiratory Infection (ED) Additional Instructions: please follow up with the primary care doctor in 2-4 days. Return to the emergency room for any new worsening symptoms Prescriptions: predniSONE 20 mg PO BID #10 tab Azithromycin [Zithromax Z-pack] 250 mg PO DIRECTED #1 pack Is patient prescribed a controlled substance at d/c from ED?: No Referrals: Marina Recinos MD [Primary Care Provider] - 1-2 days Time of Disposition: 15:38
== END 2019-08-26 15:58 | disposition home or self-care (01) ==
LOC: EC 12:54
DX: R05 Cough (principal); R09.81 Nasal congestion; R11.0 Nausea; R51 Headache; R00.0 Tachycardia, unspecified; R09.89 Other specified symptoms and signs involving the circulatory and respiratory systems; Z87.09 Personal history of other diseases of the respiratory system; Z79.899 Other long term (current) drug therapy; Z91.018 Allergy to other foods
CPT/HCPCS: 71046; 87502; 94640; 99284

== ENCOUNTER 2019-08-27 22:23 | Emergency (ER) | payer OTHER ==
[2019-08-27 22:30] VITALS: BP 109/71; PULSE 118; RESP 18; TEMP 97.7
[2019-08-27] MEDS ORDERED: HYDROcodone/APAP 5-325MG 1 EACH TAB PO STA (22:37)
[2019-08-27] MEDS ORDERED: IBUPROFEN 800 MG TAB PO STA (22:37)
--- NOTE | 2019-08-27 22:54 | ED ---
Lower Extremity Injury HPI - General Chief Complaint: Extremity Injury, Lower Stated Complaint: Seizure Time Seen by Provider: 08/27/19 22:32 Source: patient, RN notes reviewed, old records reviewed Mode of arrival: ambulatory Limitations: no limitations - History of Present Illness Initial Comments: This is a 28 showed female here with left knee pain left knee pain occurred after having seizure activity at home and followed by. Patient states she larynges no other complaints is complaining of left knee pain she is able to ambulate on the knee but the knee has had some increased swelling. No modifying factors pain started medications at home. Patient doesn't take his [facility] seizure medication is directed. Patient does display but occasionally have frequent seizures. Currently denies any headache or any other trauma MD Complaint: knee injury -: hour(s) Injury: Knee: Left Place: home Severity: moderate Severity scale (1-10): 5 Improves With: nothing Worsens With: weight bearing, palpation Context: direct blow Other Symptoms: seizure Associated Symptoms: swelling - Related Data Home Medications Medication Instructions Recorded Confirmed Hydroxychloroquine Sulfate 200 mg PO BID 07/24/18 07/24/18 [Plaquenil] Previous Rx's Medication Instructions Recorded Amoxicillin 500 mg PO Q8H #30 capsule 03/14/19 Hydrocodone/Acetaminophen [[place] 1 each PO Q6HR PRN #20 tab 04/29/19 5-325] Ibuprofen 800 mg PO TID #20 tablet 04/29/19 Azithromycin [Zithromax Z-pack] 250 mg PO DIRECTED #1 pack 08/26/19 predniSONE 20 mg PO BID #10 tab 08/26/19 Allergies Allergy/AdvReac Type Severity Reaction Status Date / Time strawberries Allergy Rash/Hives Uncoded 08/26/19 13:48 Review of Systems ROS Statement: Those systems with pertinent positive or pertinent negative responses have been documented in the HPI. ROS Other: All systems not noted in ROS Statement are negative. Past Medical History Past Medical History: Seizure Disorder Additional Past Medical History / Comment(s): lupus History of Any Multi-Drug Resistant Organisms: None Reported Past Surgical History: No Surgical Hx Reported Additional Past Surgical History / Comment(s): Vagus nerve stimulator Past Psychological History: Anxiety Smoking Status: Never smoker Past Alcohol Use History: None Reported Past Drug Use History: None Reported General Exam Limitations: no limitations General appearance: alert, in no apparent distress Head exam: Present: atraumatic, normocephalic, normal inspection Eye exam: Present: normal appearance, PERRL, EOMI. Absent: scleral icterus, conjunctival injection, periorbital swelling ENT exam: Present: normal exam, mucous membranes moist Neck exam: Present: normal inspection. Absent: tenderness, meningismus, lymphadenopathy Respiratory exam: Present: normal lung sounds bilaterally. Absent: respiratory distress, wheezes, rales, rhonchi, stridor Cardiovascular Exam: Present: regular rate, normal rhythm, normal heart sounds. Absent: systolic murmur, diastolic murmur, rubs, gallop, clicks GI/Abdominal exam: Present: soft, normal bowel sounds. Absent: distended, tenderness, guarding, rebound, rigid Extremities exam: Present: normal inspection, full ROM, normal capillary refill. Absent: tenderness, pedal edema, joint swelling, calf tenderness Back exam: Present: normal inspection Neurological exam: Present: alert, oriented X3, CN II-XII intact Psychiatric exam: Present: normal affect, normal mood Skin exam: Present: warm, dry, intact, normal color. Absent: rash Course Vital Signs 08/27/19 22:24 Temperature 97.7 F Pulse Rate 118 H Respiratory 18 Rate Blood Pressure 109/71 O2 Sat by Pulse 97 Oximetry Medical Decision Making - Medical Decision Making 28 female here with knee pain after seizure. Seizure is without complication. The pain x-rays negative for fracture. Patient can be discharged home - Radiology Data Radiology results: report reviewed (X-ray left knee negative for traumatic disease), image reviewed Disposition Clinical Impression: Fall, Seizure, Contusion of left knee Disposition: HOME SELF-CARE Condition: Good Instructions (If sedation given, give patient instructions): Knee Pain (ED) Is patient prescribed a controlled substance at d/c from ED?: No Referrals: None,Stated [Primary Care Provider] - 1-2 days
--- NOTE | 2019-08-27 23:04 | XR ---
EXAMINATION TYPE: XR knee complete LT DATE OF EXAM: 08/27/2019 COMPARISON: NONE HISTORY: Knee pain TECHNIQUE: 3 views FINDINGS: I see no fracture nor dislocation. Joint spaces are normal. Knee joint spaces are normal. IMPRESSION: Negative left knee exam.
[2019-08-27] MEDS ORDERED: ACET/COD 300 MG/30 MG STARTER PACK 6 TAB BTL PO STA (23:16)
== END 2019-08-27 23:58 | disposition home or self-care (01) ==
LOC: EC 22:23
DX: S80.02XA Contusion of left knee, initial encounter (principal); G40.909 Epilepsy, unspecified, not intractable, without status epilepticus; Z79.899 Other long term (current) drug therapy; Z91.018 Allergy to other foods; W06.XXXA Fall from bed, initial encounter
CPT/HCPCS: 99284

== ENCOUNTER 2020-03-12 20:06 | Inpatient (IN) | payer OTHER ==
[2020-03-12] MEDS ORDERED: SODIUM CHLORIDE 0.9% 1,000 ML IV STA (20:40)
[2020-03-12] MEDS ORDERED: levETIRAcetam IV 1,000 MG in SALINE 1 100ML.BAG IVPB STA (20:40)
--- NOTE | 2020-03-12 20:52 | ED ---
General Adult HPI - General Source: patient, EMS, RN notes reviewed Mode of arrival: EMS <Shen Carrera - Last Filed: 03/12/20 23:32> <Patricia Slater - Last Filed: 03/16/20 00:47> - General Chief complaint: Seizure Stated complaint: Seizure Time Seen by Provider: 03/12/20 20:23 - History of Present Illness Initial comments: 29-year-old female with a past medical history of seizure disorder presents to the emergency department for seizure activity. Patient was at work apparently when she had a seizure. Apparently staff called EMS. When EMS arrived they witnessed 3 tonic clonic seizures. According to the nurse these lasted about 2 minutes each. Patient was given 10 mg IM of Versed followed by 5 mg IM. (Shen Carrera) - Related Data Home Medications Medication Instructions Recorded Confirmed Perampanel [Fycompa] 6 mg PO HS 03/12/20 03/12/20 Allergies Allergy/AdvReac Type Severity Reaction Status Date / Time strawberries Allergy Rash/Hives Uncoded 03/12/20 23:31 Review of Systems ROS Other: All systems not noted in ROS Statement are negative. <Shen Carrera - Last Filed: 03/12/20 23:32> ROS Other: All systems not noted in ROS Statement are negative. <Patricia Slater - Last Filed: 03/16/20 00:47> ROS Statement: Those systems with pertinent positive or pertinent negative responses have been documented in the HPI. Past Medical History Past Medical History: Seizure Disorder Additional Past Medical History / Comment(s): lupus History of Any Multi-Drug Resistant Organisms: None Reported Past Surgical History: No Surgical Hx Reported Additional Past Surgical History / Comment(s): Vagus nerve stimulator Past Psychological History: Anxiety Smoking Status: Never smoker Past Alcohol Use History: None Reported Past Drug Use History: None Reported <Shen Carrera - Last Filed: 03/12/20 23:32> General Exam General appearance: in no apparent distress, obtunded (obtunded but arousable) Head exam: Present: atraumatic, normocephalic, normal inspection Eye exam: Present: normal appearance, PERRL, EOMI. Absent: scleral icterus, conjunctival injection, periorbital swelling ENT exam: Present: normal exam, mucous membranes moist Neck exam: Present: normal inspection, full ROM. Absent: tenderness, meningismus, lymphadenopathy Respiratory exam: Present: normal lung sounds bilaterally. Absent: respiratory distress, wheezes, rales, rhonchi, stridor Cardiovascular Exam: Present: regular rate, normal rhythm, normal heart sounds. Absent: systolic murmur, diastolic murmur, rubs, gallop, clicks GI/Abdominal exam: Present: soft, normal bowel sounds. Absent: distended, tenderness, guarding, rebound, rigid <Shen Carrera - Last Filed: 03/12/20 23:32> Course <Shen Carrera - Last Filed: 03/12/20 23:32> Vital Signs 03/12/20 03/12/20 03/13/20 20:19 22:00 00:35 Temperature 98.1 F Pulse Rate 106 H 88 67 Respiratory 17 16 16 Rate Blood Pressure 119/75 120/71 107/68 O2 Sat by Pulse 97 97 96 Oximetry - Reevaluation(s) Reevaluation #1: 03/12/20 21:47 Patient reevaluated, alert and oriented 3. Feeling much better at this time. 03/12/20 21:47 (Shen Carrera) EKG Findings - EKG Comments: EKG Findings:: Normal sinus rhythm, ventricular rate 85, [place] interval 148, QTC 440 <Shen Carrera - Last Filed: 03/12/20 23:32> Medical Decision Making - Lab Data Result diagrams: 03/12/20 20:50 03/12/20 20:50 <Shen Carrera - Last Filed: 03/12/20 23:32> - Lab Data Result diagrams: 03/12/20 20:50 03/13/20 07:43 <Patricia Slater - Last Filed: 03/16/20 00:47> - Medical Decision Making Vitals are stable. When patient initially presented she was obtunded secondary to 15 mg of versed said as well as postictal state. She did start to come around after about an hour and became easily arousable. Patient is not answering questions. She states this is very abnormal for her to have 4 seizures in one day. Patient reports she has been taking her seizure medication fycopma. She does have a VNS but did not bring the bracelet to work. Patient currently works in a factory. Patient was rehydrated with plenty of fluids. Laboratory evaluation was performed. Patient was found to be in minimally hypokalemic with a potassium of 3.3, replaced orally. Discussed case with mother and patient. At this time patient will be admitted for further man agement as seizures are uncontrolled at this time. Neurology will be consulted. (Shen Carrera) I was available for consultation in the emergency department. The history and physical exam were done by the midlevel provider. I was consulted for this patients care. I reviewed the case with the midlevel provider and based on their presentation of the patient, I agree with the assessment, medical decision making and plan of care as documented. Chart was dictated using [employer] dictation software. Attempts were made to correct any dictation errors however some typographical errors may persist. Patient was seen during a national state of emergency due to the Covid-19 pandemic. (Patricia Slater) - Lab Data Lab Results 03/12/20 03/12/20 03/12/20 Range/Units 20:14 20:50 20:50 WBC 6.1 (3.8-10.6) k/uL RBC 4.15 (3.80-5.40) m/uL Hgb 13.3 (11.4-16.0) gm/dL Hct 38.1 (34.0-46.0) % MCV 91.8 (80.0-100.0) fL MCH 32.1 (25.0-35.0) pg MCHC 34.9 (31.0-37.0) g/dL RDW 12.7 (11.5-15.5) % Plt Count 229 (150-450) k/uL Neutrophils % 70 % Lymphocytes % 20 % Monocytes % 6 % Eosinophils % 1 % Basophils % 1 % Neutrophils # 4.3 (1.3-7.7) k/uL Lymphocytes # 1.3 (1.0-4.8) k/uL Monocytes # 0.4 (0-1.0) k/uL Eosinophils # 0.1 (0-0.7) k/uL Basophils # 0.0 (0-0.2) k/uL Sodium 136 L (137-145) mmol/L Potassium 3.3 L (3.5-5.1) mmol/L Chloride 104 (98-107) mmol/L Carbon Dioxide 23 (22-30) mmol/L Anion Gap 9 mmol/L BUN 5 L (7-17) mg/dL Creatinine 0.78 (0.52-1.04) mg/dL Est GFR (CKD-EPI)AfAm >90 (>60 ml/min/1.73 sqM) Est GFR (CKD-EPI)NonAf >90 (>60 ml/min/1.73 sqM) Glucose 111 H (74-99) mg/dL POC Glucose (mg/dL) 129 H (75-99) mg/dL POC Glu Spare Hand Carding ID Alanna Borrero A Calcium 9.3 (8.4-10.2) mg/dL Total Bilirubin 0.5 (0.2-1.3) mg/dL AST 17 (14-36) U/L ALT 11 (4-34) U/L Alkaline Phosphatase 52 (38-126) U/L Total Protein 6.4 (6.3-8.2) g/dL Albumin 3.9 (3.5-5.0) g/dL HCG, Qual Urine Color Urine Appearance (Clear) Urine pH (5.0-8.0) Ur Specific [place] (1.001-1.035) Urine Protein (Negative) Urine Glucose (UA) (Negative) Urine Ketones (Negative) Urine Blood (Negative) Urine Nitrite (Negative) Urine Bilirubin (Negative) Urine Urobilinogen (<2.0) mg/dL Ur Leukocyte Esterase (Negative) Urine HCG, Qual (Not Detectd) Salicylates <1.0 mg/dL Urine Opiates Screen (NotDetected) Ur Oxycodone Screen (NotDetected) Urine Methadone Screen (NotDetected) Ur Propoxyphene Screen (NotDetected) Acetaminophen <10.0 ug/mL Ur Barbiturates Screen (NotDetected) U Tricyclic Antidepress (NotDetected) Ur Phencyclidine Scrn (NotDetected) Ur Amphetamines Screen (NotDetected) U Methamphetamines Scrn (NotDetected) U Benzodiazepines Scrn (NotDetected) Urine Cocaine Screen (NotDetected) U Marijuana (THC) Screen (NotDetected) Serum Alcohol <10 mg/dL 03/12/20 03/12/20 03/12/20 Range/Units 20:50 22:36 22:36 WBC (3.8-10.6) k/uL RBC (3.80-5.40) m/uL Hgb (11.4-16.0) gm/dL Hct (34.0-46.0) % MCV (80.0-100.0) fL MCH (25.0-35.0) pg MCHC (31.0-37.0) g/dL RDW (11.5-15.5) % Plt Count (150-450) k/uL Neutrophils % % Lymphocytes % % Monocytes % % Eosinophils % % Basophils % % Neutrophils # (1.3-7.7) k/uL Lymphocytes # (1.0-4.8) k/uL Monocytes # (0-1.0) k/uL Eosinophils # (0-0.7) k/uL Basophils # (0-0.2) k/uL Sodium (137-145) mmol/L Potassium (3.5-5.1) mmol/L Chloride (98-107) mmol/L Carbon Dioxide (22-30) mmol/L Anion Gap mmol/L BUN (7-17) mg/dL Creatinine (0.52-1.04) mg/dL Est GFR (CKD-EPI)AfAm (>60 ml/min/1.73 sqM) Est GFR (CKD-EPI)NonAf (>60 ml/min/1.73 sqM) Glucose (74-99) mg/dL POC Glucose (mg/dL) (75-99) mg/dL POC Glu Spare Hand Carding ID Calcium (8.4-10.2) mg/dL Total Bilirubin (0.2-1.3) mg/dL AST (14-36) U/L ALT (4-34) U/L Alkaline Phosphatase (38-126) U/L Total Protein (6.3-8.2) g/dL Albumin (3.5-5.0) g/dL HCG, Qual Not Detected Urine Color Light Yellow Urine Appearance Clear (Clear) Urine pH 6.0 (5.0-8.0) Ur Specific [place] 1.003 (1.001-1.035) Urine Protein Negative (Negative) Urine Glucose (UA) Negative (Negative) Urine Ketones Negative (Negative) Urine Blood Negative (Negative) Urine Nitrite Negative (Negative) Urine Bilirubin Negative (Negative) Urine Urobilinogen <2.0 (<2.0) mg/dL Ur Leukocyte Esterase Negative (Negative) Urine HCG, Qual Not Detected (Not Detectd) Salicylates mg/dL Urine Opiates Screen Not Detected (NotDetected) Ur Oxycodone Screen Not Detected (NotDetected) Urine Methadone Screen Not Detected (NotDetected) Ur Propoxyphene Screen Not Detected (NotDetected) Acetaminophen ug/mL Ur Barbiturates Screen Not Detected (NotDetected) U Tricyclic Antidepress Not Detected (NotDetected) Ur Phencyclidine Scrn Not Detected (NotDetected) Ur Amphetamines Screen Not Detected (NotDetected) U Methamphetamines Scrn Not Detected (NotDetected) U Benzodiazepines Scrn Not Detected (NotDetected) Urine Cocaine Screen Not Detected (NotDetected) U Marijuana (THC) Screen Not Detected (NotDetected) Serum Alcohol mg/dL Disposition Is patient prescribed a controlled substance at d/c from ED?: No Time of Disposition: 23:32 <Shen Carrera P - Last Filed: 03/12/20 23:32> <Patricia Slater - Last Filed: 03/16/20 00:47> Clinical Impression: Intractable seizure disorder Disposition: ADMITTED IP TO THIS [facility] Condition: Serious
[2020-03-12 21:12] LABS: Basophils % (A) 1 %; Eosinophils # (A) 0.1 k/uL (0-0.7); Eosinophils % (A) 1 %; HCT 38.1 % (34.0-46.0); HGB 13.3 gm/dL (11.4-16.0); Lymphocytes # (A) 1.3 k/uL (1.0-4.8); Lymphocytes % (A) 20 %; MCH 32.1 pg (25.0-35.0); MCHC 34.9 g/dL (31.0-37.0); MCV 91.8 fL (80.0-100.0); Mean Platelet Volume 7.6; Monocytes # (A) 0.4 k/uL (0-1.0); Monocytes % (A) 6 %; Neutrophils # (A) 4.3 k/uL (1.3-7.7); Neutrophils % (A) 70 %; Platelet Count 229 k/uL (150-450); RBC 4.15 m/uL (3.80-5.40); RDW 12.7 % (11.5-15.5); WBC 6.1 k/uL (3.8-10.6)
[2020-03-12 21:22] LABS: ALT 11 U/L (4-34); AST 17 U/L (14-36); Acetaminophen <10.0 ug/mL; African American GFR (CKD) >90 (>60 ml/min/1.73 sqM); Albumin 3.9 g/dL (3.5-5.0); Alcohol <10 mg/dL; Alkaline Phosphatase 52 U/L (38-126); Anion Gap 9 mmol/L; Blood Urea Nitrogen 5 mg/dL (7-17); Calcium 9.3 mg/dL (8.4-10.2); Carbon Dioxide 23 mmol/L (22-30); Chloride 104 mmol/L (98-107); Glucose 111 mg/dL (74-99); Non-African American GFR(CKD) >90 (>60 ml/min/1.73 sqM); Potassium 3.3 mmol/L (3.5-5.1); Salicylate <1.0 mg/dL; Sodium 136 mmol/L (137-145); Total Bilirubin 0.5 mg/dL (0.2-1.3); Total Protein 6.4 g/dL (6.3-8.2)
--- NOTE | 2020-03-12 21:31 | CT ---
EXAMINATION TYPE: CT brain wo con DATE OF EXAM: 03/12/2020 COMPARISON: CT brain June 06, 2018 HISTORY: Seizure CT DLP: 1260.4 mGycm. Automated Exposure Control for Dose Reduction was Utilized. TECHNIQUE: CT scan of the head is performed without contrast. FINDINGS: There is no acute intracranial hemorrhage, mass effect, or midline shift identified. The ventricles and sulci are within normal limits in size. Amaral-white matter differentiation is maintain ed. The globes are intact and the visualized sinuses are clear. Nasal septum remains slightly deviat ed to right of midline. IMPRESSION: No acute intracranial hemorrhage or midline shift is seen. No significant change from pr ior.
[2020-03-12] MEDS ORDERED: POTASSIUM CHLORIDE ER 20 MEQ TAB.ER PO STA (22:32)
[2020-03-12 22:43] LABS: Appearance,Urine Clear (Clear); Bilirubin,Urine Negative (Negative); Blood,Urine Negative (Negative); Color,Urine Light Yellow; Glucose,Urine (UA) Negative (Negative); Ketones,Urine Negative (Negative); Leukocyte Esterase,Urine Negative (Negative); Nitrite,Urine Negative (Negative); Protein,Urine Negative (Negative); Specific Gravity,Urine 1.003 (1.001-1.035); Urobilinogen,Urine <2.0 mg/dL (<2.0)
[2020-03-12 23:05] LABS: Amphetamine Screen,Urine Not Detected (NotDetected); Barbiturate Screen,Urine Not Detected (NotDetected); Benzodiazepines Screen,Urine Not Detected (NotDetected); Cocaine Screen,Urine Not Detected (NotDetected); Methadone Screen, Urine Not Detected (NotDetected); Opiate Screen,Urine Not Detected (NotDetected); Oxycodone Screen, Urine Not Detected (NotDetected); Phencyclidine Screen,Urine Not Detected (NotDetected); Tricyclic Antidepressant,Urine Not Detected (NotDetected); Urn Cannabinoid Scrn Not Detected (NotDetected)
[2020-03-12] MEDS ORDERED: NALOXONE 0.4 MG/ML 1 ML VIAL IV PRN (23:28)
[2020-03-13] MEDS ORDERED: PERAMPANEL 6 MG PO SCH ×2 (01:28→21:00)
--- NOTE | 2020-03-13 01:50 | P.HPIM ---
History of Present Illness H&P Date: 03/12/20 Chief Complaint: seizure 29 year old female with history of seizures, she reports that last breakthrough was years ago . she was at work, she works in assembly line, assembles small parts. then suddenly had a seizure attack. it seems that this was followed by 3 more episode s. she denies any preceeding symptoms, and thought that it happened all of a sudden. denies any changes in her medications, denies taking any antibiotics, or new prescription. denies any alcohol or drug use. for contraception she has a depot shot that she has been on for many years. EMS notified , upon arrival , patient had more witnessed seizures, and was given a total of 15 mg versed in the ED , patient is awake, cooperative with exam and interview. when i evaluated her , she was sleepy but easily arousable and answering question appropriately. she is complaining of right forearm pain , no brusing , swelling, cuts or visible injuries. she reports some occasional nausea and vomiting over the past few days, but otherwise deneis any fever, chills, or URI, denies any urinary symptoms seizures were tonic clonic, denies any tongue biting, or loss of bladder and bowel control. no head injury reported Review of Systems Pertinent positives as noted in HPI. All other systems were reviewed and are negative Past Medical History Past Medical History: Seizure Disorder Additional Past Medical History / Comment(s): lupus History of Any Multi-Drug Resistant Organisms: None Reported Past Surgical History: No Surgical Hx Reported Additional Past Surgical History / Comment(s): Vagus nerve stimulator Past Psychological History: Anxiety Smoking Status: Never smoker Past Alcohol Use History: None Reported Past Drug Use History: None Reported - Past Family History family Family Medical History: No Reported History Medications and Allergies Home Medications Medication Instructions Recorded Confirmed Type Perampanel [Fycompa] 6 mg PO HS 03/12/20 03/12/20 History Allergies Allergy/AdvReac Type Severity Reaction Status Date / Time strawberries Allergy Rash/Hives Uncoded 03/12/20 23:31 Physical Exam Vitals: Vital Signs Temp Pulse Resp BP Pulse Ox 03/12/20 22:00 88 16 120/71 97 03/12/20 20:19 98.1 F 106 H 17 119/75 97 Intake and Output 03/12/20 03/12/20 03/13/20 14:59 22:59 06:59 Other: Weight 90.718 kg Constitutional: No acute distress, lethargic, easily arousable Eyes: Anicteric sclerae, moist conjunctiva, Pupils equal round reactive to light ENMT: NC/AT Oropharynx clear, no erythema, or exudates Neck: Supple, FROM, no masses, or JVD No carotid bruits No thyromegaly Lungs: Clear to auscultation Clear to percussion Normal respiratory effort, no accessory muscle use Cardiovascular: Heart regular in rate and rhythm, No murmurs, gallops, or rubs No peripheral edema Abdominal: Soft Nontender, no guarding, rebound or rigidity Abdomen moving with respiration Normoactive bowel sounds No hepatomegaly, No splenomegaly No palpable mass No abdominal wall hernia noted Skin: Normal temperature, tone, texture, turgor No induration No subcutaneous nodules No rash, lesions No ulcers Extremities: No digital cyanosis No clubbing Pedal pulses intact and symmetrical Radial pulses intact and symmetrical No calf tenderness Psychiatric: Alert and oriented to person, place and time Appropriate affect fair judgement Neuro Muscles Strength 5/5 in all 4 extremities Sensation to light touch grossly present throughout Cranial nerves II-XII grossly intact No focal sensory deficits Lymphatics: no palpable cervical or supraclavicular , or inguinal lymph nodes Results CBC & Chem 7: 03/12/20 20:50 03/12/20 20:50 Labs: Abnormal Lab Results - Last 24 Hours (Table) 03/12/20 Range/Units 20:50 Sodium 136 L (137-145) mmol/L Potassium 3.3 L (3.5-5.1) mmol/L BUN 5 L (7-17) mg/dL Glucose 111 H (74-99) mg/dL Assessment and Plan Assessment: breakthrough seizures resume home meds seizure precautions loaded with keppra, continue BID neuro eval neurochecks CT brain no acute abnormalities mild hypokalemia , replaced follow up in AM CODE STATUS:full code DVT prophylaxis: heparin sc tid Discussed with: Patient, ER, RN Anticipated length of stay > than [address]: home A total of 75 minutes was spent on the care of this complex patient more than 50% of the time was spent in counseling and care coordination.
[2020-03-13] MEDS: HEPARIN SODIUM,PORCINE 5,000 UNIT/ML 1 ML VIAL SQ SCH ×2 (08:03→17:55)
[2020-03-13] MEDS: levETIRAcetam 500 MG TAB PO SCH ×2 (08:11→20:12)
[2020-03-13] MEDS: SODIUM CHLORIDE 0.9% 1,000 ML IV SCH ×2 (08:12)
[2020-03-13 09:01] LABS: African American GFR (CKD) >90 (>60 ml/min/1.73 sqM); Anion Gap 4 mmol/L; Blood Urea Nitrogen 4 mg/dL (7-17); Calcium 8.7 mg/dL (8.4-10.2); Carbon Dioxide 24 mmol/L (22-30); Chloride 111 mmol/L (98-107); Glucose 81 mg/dL (74-99); Non-African American GFR(CKD) >90 (>60 ml/min/1.73 sqM); Potassium 4.1 mmol/L (3.5-5.1); Sodium 139 mmol/L (137-145)
[2020-03-13 10:27] VITALS: RESP 18
--- NOTE | 2020-03-13 10:44 | P.CNNES ---
History of Present Illness Consult date: 03/13/20 Requesting physician: Shen Carrera Reason for Consult: Uncontrolled seizures History of Present Illness: Patient is a 29-year-old female with history of seizure disorder, came to the hospital for recurrent seizures. Patient arrived yesterday at 10 PM. Patient was at work when she had a seizure. EMS was called. When EMS arrived, they witnessed 3 tonic-clonic seizures. Each lasted for about 2 minutes. There was no tongue bite or urinary incontinence. Patient was given 10 mg IM of Versed followed by 5 mg IM. She has not had any seizures since then. At present patient is postictal. She is groggy, but arousable. Able to provide history as below. Patient has history of seizure disorder since she was a little kid. She gets tonic-clonic and absence seizure as well as myoclonic seizures. Patient has p reviously failed numerous medications including Lamictal, Depakote, Keppra, Topamax, due to being ineffective for her. Keppra produced "anger issues". Patient states that her seizures are not very frequent. She also has vagal nerve stimulator implanted. Patient follows up with Dr. Brock Downs. Patient most recently was started on Fycompa about a year ago. She usually gets one seizure sporadically. Patient sometimes gets an aura consisting of seeing centipede's everywhere. This aura lasts for 1-2 minutes and then she gets a grand mal seizure. Sometimes she gets tongue bite and urinary incontinence but not every time. Patient states that the last seizure prior to these for seizur es was several months ago. Patient states that she could be seizure free for extended of time. CT head showed no acute intracranial hemorrhage or midline shift. EKG shows normal sinus rhythm. Patient's CBC is normal, sodium was 136 potassium 3.3. Renal functions hepatic panel normal. UA negative. Urine drug screen negative, blood alcohol level negative. Patient denies any tobacco, alcohol. She works at a factory. Review of Systems Patient complains of being tired. Denies headache problems with vision horses sore throat dysphagia. Denies any chest pain shortness breath abdominal pain nausea vomiting diarrhea. Please refer to HPI for details. Patient somnolent not able to provide much review of systems. Past Medical History Past Medical History: Seizure Disorder Additional Past Medical History / Comment(s): lupus History of Any Multi-Drug Resistant Organisms: None Reported Past Surgical History: No Surgical Hx Reported Additional Past Surgical History / Comment(s): Vagus nerve stimulator Past Anesthesia/Blood Transfusion Reactions: Unable to Obtain Past Psychological History: Anxiety Smoking Status: Never smoker Past Alcohol Use History: None Reported Past Drug Use History: None Reported - Past Family History family Family Medical History: No Reported History Medications and Allergies Home Medications Medication Instructions Recorded Confirmed Type Perampanel [Fycompa] 6 mg PO HS 03/12/20 03/12/20 History Allergies Allergy/AdvReac Type Severity Reaction Status Date / Time strawberries Allergy Rash/Hives Uncoded 03/12/20 23:31 Physical Examination - Vital Signs Vital Signs: Vital Signs Temp Pulse Pulse Resp BP BP Pulse Ox 03/13/20 07:00 97.8 F 57 L 18 112/56 100 03/13/20 01:46 98.0 F 60 18 111/75 98 03/13/20 01:00 60 16 03/13/20 00:35 67 16 107/68 96 03/12/20 22:00 88 16 120/71 97 03/12/20 20:19 98.1 F 106 H 17 119/75 97 Intake and Output 03/12/20 03/13/20 03/13/20 22:59 06:59 14:59 Intake Total 600 Balance 600 Intake: Intake, IV Titration 600 Amount Sodium Chloride 0.9% 1, 600 000 ml @ 100 mls/hr IV . Q10H [facility] Rx#:[id number] Other: Weight 90.718 kg 90.718 kg On examination patient is a young female, laying comfortably in the bed. She is sleeping, perhaps postictal, possible medication effect. Patient frequently starts dozing off while talking. She has to be aroused. Her speech and language functions are normal. Mentation completely normal when she is awake. On cranial examination pupils are round and reactive to light, visual matos are full on confrontation. Extraocular muscles are intact with no nystagmus. Face is symmetric, tongue protrudes in midline. Palatal elevation and sensation normal hearing and shoulder shrug normal. On muscle strength testing there is no pronator drift and the strength is normal in arms and legs distally and proximally. Reflexes are 1+ and plantars downgoing. Sensory touch is equal. No ataxia for [id number] testing. Tone and bulk of muscles normal. Gait deferred. No obvious bruit or murmur, peripheral pulses present. Abdomen soft nontender. Chest clear. No edema. Results - Laboratory Findings CBC and BMP: 03/12/20 20:50 03/13/20 07:43 Abnormal Lab Findings: Abnormal Labs 03/12/20 03/13/20 20:50 07:43 Sodium 136 L Potassium 3.3 L Chloride 111 H BUN 5 L 4 L Glucose 111 H Assessment and Plan Assessment: * Long-standing history of generalized tonic-clonic seizure, came with breakthrough seizures. Patient had 4 seizures in one day, which is unusual. * History of vagus nerve stimulator placement. Plan: * Patient currently is on Fycompa 6 mg daily. We will increase the dose of Fycompa to 8 mg daily. * This medication is not available in the formulary. Prescription was provided. * In the hospital patient is receiving Keppra 1000 mg twice a day, but it will not be continued as outpatient. Patient previously had behavioral side effects with this medication. Patient was informed to discuss with her tristen rologist about considering Briviact, which is like Keppra but with no behavioral side effects. * Patient clear for discharge with the above recommendations, when mentation comes back to normal. * Patient recommended to follow up with a neurologist in 1-2 weeks.
[2020-03-13 14:09] LABS: Glucose,Whole Blood 129 mg/dL (75-99)
[2020-03-13] MEDS ORDERED: LORazepam 2 MG/ML INJ IV STA (16:30)
[2020-03-13] MEDS ORDERED: LORazepam 2 MG/ML INJ ONE (16:31)
[2020-03-13] MEDS ORDERED: VALPROATE SODIUM 750 MG in SODIUM CHLORIDE 0.9% 50 ML IVPB SCH (17:15)
--- NOTE | 2020-03-13 18:36 | P.DS ---
Providers Date of admission: 03/12/20 23:41 Expected date of discharge: 03/13/20 Attending physician: Dmitriy Amador MD Consults: 03/12/20 23:29 Consult Physician Routine Consulting Provider: Penny Smith Consult Reason/Comments: uncontrolled seizures Do you want consulting provider notified?: Yes Primary care physician: Stated None Hospital Course: Discharge Diagnosis: Break through seizure with status epilepticus Hypokalemia Obesity with BMI 31.3 Lupus Hospital Course: Patient is a 29-year-old female with a history of seizure disorder status post vagus nerve stimulator implantation on Fycompa who presented Via EMS for break through seizure. She was at work when staff noted she had a seizure. They called EMS and she had an additional 3 witnessed tonic clonic seizures. Her first seizure she was given IM versed, she then was post ictal and started to have another seizure and again was given a dose, her seizure activity stopped and then restarted and she was given a third dose of Versed. Total milligrams were 15. She was post ictal on arrival to the ER. She underwent a CT head which showed no acute intracranial hemorrhage or midline tenderness, and no change from prior. EKG was done which showed no definitive abnormality. Laboratory analysis did show mild hypokalemia at 3.3 but was otherwise unremarkable. Urine toxicology was negative, urinalysis negative. No signs or symptoms for concerning upper respiratory tract infection. COVID 19 was negative. She has been loaded with Keppra held and milligrams IV 1. She was admitted for further monitoring. She is maintained on Keppra thousand milligrams twice daily. She was seen by neurology who recommended increase her her dose of Fycompa from 6 mg to 8 mg daily (we do not carry this meidcation in the hospital). We continued to monitor her. She had a hx of mood irritably on Keppra in the past but was okay with a short trial of this medicataion. She was significantly post-ictal throughout the day on 03/13. At 1625 She again began having a Tonic- Clonic seizure. She was given ativan 1mg. Per nursing her Seizure aborted. She again began seizing at 1635 which lasted to 1645. I was at bedside during her second seizure she was given ativan 2 mg. She had bilateral rhythmic jerking of her arm, leg we failing off the bed. Her eyes were rolled back in her head and jaw was clenched. After she was significantly lethargic and post-ictal. Neurology arrived to bedside and suggested loading with Depakene 1000 mg IVPB. He also suggested transfer to a center with neurology available over the weekend and where there is 24 hours EEG monitoring. Mother was in agreement with transfer, patient was to post-ictal to consent. Prashant Carnes accepted transfer. Once transfer was in place mother then noted that the Patient's fiance cheated on her and they broke up about a week ago. She was eating less this week and was under more stress. Patient has a vagus nerve stimulator in her left chest wall. Her magnet is on her right wrist. If she does have a seizure swipe the magnet across the stimulator from left to right when facing the patient. Patient seen and examined at bedside. During the morning. Stated she was not sure whether her seizures this week. Has been compliant with her medications. As always follow with her neurologist Dr. Brock Downs out of [facility]. Vital signs reviewed and stable. General: non toxic, no distress, appears at stated age Derm: warm, dry Head: atraumatic, normocephalic, symmetric Eyes: EOMI, no lid lag, anicteric sclera Mouth: no lip lesion, mucus membranes moist Cardiovascular: S1S2 reg, no murmur, positive posterior tibial pulse bilateral, Lungs: CTA bilateral, no rhonchi, no rales , no accessory muscle use Abdominal: soft, nontender to palpation, no guarding, no appreciable organomegaly Ext: no gross muscle atrophy, no edema, no contractures Neuro: CN II-XI grossly intact, no focal neuro deficits Psych: lethargic A total of 45 minutes of time were spent preparing this complex discharge summary . Patient Condition at Discharge: Serious Plan - Discharge Summary Discharge Rx Participant: No New Discharge Prescriptions: No Action Perampanel [Fycompa] 6 mg PO HS Discharge Medication List Perampanel [Fycompa] 6 mg PO HS 03/12/20 [History] Follow up Appointment(s)/Referral(s): None,Stated [Primary Care Provider] - 1-2 days Activity/Diet/Wound Care/Special Instructions: Please go to [email or web address] to find a primary care physician. Discharge/Stand Alone Forms: Work/Release Restrictions Form
[2020-03-13 20:17] VITALS: BP 113/75; PULSE 61; TEMP 98
== END 2020-03-13 21:00 | disposition home or self-care (01) | DRG 101 ==
LOC: EC 20:06 → 4SSUR 23:41
PROVIDERS: ADMIT Internal Medicine; ATTEND Internal Medicine
DX: G40.411 Other generalized epilepsy and epileptic syndromes, intractable, with status epilepticus (principal); Z68.31 Body mass index [BMI] 31.0-31.9, adult; E66.9 Obesity, unspecified; E87.6 Hypokalemia; M32.9 Systemic lupus erythematosus, unspecified; F41.9 Anxiety disorder, unspecified; Z11.59 Encounter for screening for other viral diseases
CPT/HCPCS: 36415; 70450; 80048; 80053; 80306; 80320; 80329; 81003; 81025; 83520; 84703; 85025; 93005; 96365; 99285

== ENCOUNTER 2020-03-21 09:25 | Emergency (ER) | payer OTHER ==
[2020-03-21 09:34] VITALS: TEMP 98.2
[2020-03-21] MEDS ORDERED: SODIUM CHLORIDE 0.9% 1,000 ML IV STA ×2 (09:43)
[2020-03-21] MEDS ORDERED: LORazepam 2 MG/ML INJ IV STA (10:06)
[2020-03-21 10:08] LABS: Glucose,Whole Blood 121 mg/dL (75-99)
[2020-03-21 10:10] LABS: Basophils % (A) 0 %; Eosinophils # (A) 0.1 k/uL (0-0.7); Eosinophils % (A) 1 %; HCT 39.3 % (34.0-46.0); HGB 12.9 gm/dL (11.4-16.0); Lymphocytes # (A) 0.8 k/uL (1.0-4.8); Lymphocytes % (A) 9 %; MCH 30.3 pg (25.0-35.0); MCHC 32.9 g/dL (31.0-37.0); Mean Platelet Volume 8.1; Monocytes # (A) 0.3 k/uL (0-1.0); Monocytes % (A) 4 %; Neutrophils # (A) 7.9 k/uL (1.3-7.7); Neutrophils % (A) 85 %; Platelet Count 197 k/uL (150-450); RBC 4.27 m/uL (3.80-5.40); RDW 12.6 % (11.5-15.5); WBC 9.2 k/uL (3.8-10.6)
[2020-03-21 10:19] LABS: ALT 16 U/L (4-34); AST 17 U/L (14-36); African American GFR (CKD) >90 (>60 ml/min/1.73 sqM); Alcohol <10 mg/dL; Alkaline Phosphatase 52 U/L (38-126); Anion Gap 8 mmol/L; Blood Urea Nitrogen 7 mg/dL (7-17); Calcium 9.1 mg/dL (8.4-10.2); Carbon Dioxide 24 mmol/L (22-30); Chloride 105 mmol/L (98-107); Glucose 119 mg/dL (74-99); Non-African American GFR(CKD) >90 (>60 ml/min/1.73 sqM); Sodium 137 mmol/L (137-145); Total Bilirubin 0.3 mg/dL (0.2-1.3); Total Protein 6.4 g/dL (6.3-8.2)
--- NOTE | 2020-03-21 10:28 | ED ---
Seizure HPI - General Chief Complaint: Seizure Stated Complaint: seizure Time Seen by Provider: 03/21/20 09:25 Source: patient, EMS, RN notes reviewed, old records reviewed Mode of arrival: EMS Limitations: no limitations - History of Present Illness Initial Comments: This is a 29-year-old female with a history of seizures who apparently had a seizure today lasting at least a minute. She is noted have what appear to be some tonic-clonic activity unknown in-service clonic activity. He also reports that she thought a bed. There is some blood on his sheets per paramedics. She did have an abrasion to her left cheek. She did appear to be somewhat post ictal. Unable answer questions well. She was recently admitted to the hospital and is currently and Aric [place] Complaint: seizure - Related Data Home Medications Medication Instructions Recorded Confirmed Perampanel [Fycompa] 6 mg PO HS 03/12/20 03/21/20 Lacosamide [Vimpat] 200 mg PO BID 03/21/20 03/21/20 Allergies Allergy/AdvReac Type Severity Reaction Status Date / Time strawberries Allergy Rash/Hives Uncoded 03/21/20 10:51 Review of Systems ROS Statement: Those systems with pertinent positive or pertinent negative responses have been documented in the HPI. ROS Other: All systems not noted in ROS Statement are negative. Past Medical History Past Medical History: Seizure Disorder Additional Past Medical History / Comment(s): lupus History of Any Multi-Drug Resistant Organisms: None Reported Past Surgical History: No Surgical Hx Reported Additional Past Surgical History / Comment(s): Vagus nerve stimulator Past Anesthesia/Blood Transfusion Reactions: Unable to Obtain Past Psychological History: Anxiety Smoking Status: Never smoker Past Alcohol Use History: None Reported Past Drug Use History: None Reported - Past Family History family Family Medical History: No Reported History General Exam - General Exam Comments Initial Comments: This is a well-developed well-nourished awake alert though slow to respond female Limitations: no limitations General appearance: alert, in no apparent distress Head exam: Present: normocephalic, normal inspection, other (superficial abrasion seen over left cheek no active bleeding at this time) Eye exam: Present: normal appearance, PERRL, EOMI. Absent: scleral icterus, conjunctival injection, periorbital swelling ENT exam: Present: normal exam, mucous membranes moist Neck exam: Present: normal inspection. Absent: tenderness, meningismus, lymphadenopathy Respiratory exam: Present: normal lung sounds bilaterally. Absent: respiratory distress, wheezes, rales, rhonchi, stridor Cardiovascular Exam: Present: regular rate, normal rhythm, normal heart sounds. Absent: systolic murmur, diastolic murmur, rubs, gallop, clicks GI/Abdominal exam: Present: soft, normal bowel sounds. Absent: distended, tenderness, guarding, rebound, rigid Extremities exam: Present: normal inspection, full ROM, normal capillary refill. Absent: tenderness, pedal edema, joint swelling, calf tenderness Back exam: Present: normal inspection Neurological exam: Present: alert, oriented X3, CN II-XII intact Psychiatric exam: Present: normal affect, normal mood Skin exam: Present: warm, dry, intact, normal color. Absent: rash Course Vital Signs 03/21/20 03/21/20 09:30 12:11 Temperature 98.2 F Pulse Rate 87 95 Respiratory 18 16 Rate Blood Pressure 120/81 119/73 O2 Sat by Pulse 98 97 Oximetry Medical Decision Making - Medical Decision Making Patient has been resting comfortably since her last injection of Ativan due to r ecurrent seizure activity. I did discuss the case with her mother was present patient will be transferred to [facility] no neurologist available this weekend today being Monday. I did discuss case with Dr. Krause was agreed to set the patient in transfer. - Lab Data Result diagrams: 03/21/20 10:06 03/21/20 10:00 Lab Results 03/21/20 03/21/20 03/21/20 Range/Units 10:00 10:06 10:06 WBC 9.2 (3.8-10.6) k/uL RBC 4.27 (3.80-5.40) m/uL Hgb 12.9 (11.4-16.0) gm/dL Hct 39.3 (34.0-46.0) % MCV 92.0 (80.0-100.0) fL MCH 30.3 (25.0-35.0) pg MCHC 32.9 (31.0-37.0) g/dL RDW 12.6 (11.5-15.5) % Plt Count 197 (150-450) k/uL Neutrophils % 85 % Lymphocytes % 9 % Monocytes % 4 % Eosinophils % 1 % Basophils % 0 % Neutrophils # 7.9 H (1.3-7.7) k/uL Lymphocytes # 0.8 L (1.0-4.8) k/uL Monocytes # 0.3 (0-1.0) k/uL Eosinophils # 0.1 (0-0.7) k/uL Basophils # 0.0 (0-0.2) k/uL Sodium 137 (137-145) mmol/L Potassium 4.0 (3.5-5.1) mmol/L Chloride 105 (98-107) mmol/L Carbon Dioxide 24 (22-30) mmol/L Anion Gap 8 mmol/L BUN 7 (7-17) mg/dL Creatinine 0.64 (0.52-1.04) mg/dL Est GFR (CKD-EPI)AfAm >90 (>60 ml/min/1.73 sqM) Est GFR (CKD-EPI)NonAf >90 (>60 ml/min/1.73 sqM) Glucose 119 H (74-99) mg/dL POC Glucose (mg/dL) 121 H (75-99) mg/dL POC Glu Dna Sequencing Associate ID Samantha Zavala Calcium 9.1 (8.4-10.2) mg/dL Magnesium 2.0 (1.6-2.3) mg/dL Total Bilirubin 0.3 (0.2-1.3) mg/dL AST 17 (14-36) U/L ALT 16 (4-34) U/L Alkaline Phosphatase 52 (38-126) U/L Total Protein 6.4 (6.3-8.2) g/dL Albumin 4.0 (3.5-5.0) g/dL Urine Color Urine Appearance (Clear) Urine pH (5.0-8.0) Ur Specific [place] (1.001-1.035) Urine Protein (Negative) Urine Glucose (UA) (Negative) Urine Ketones (Negative) Urine Blood (Negative) Urine Nitrite (Negative) Urine Bilirubin (Negative) Urine Urobilinogen (<2.0) mg/dL Ur Leukocyte Esterase (Negative) Urine WBC (0-5) /hpf Ur Squamous Epith Cells (0-4) /hpf Urine Opiates Screen (NotDetected) Ur Oxycodone Screen (NotDetected) Urine Methadone Screen (NotDetected) Ur Propoxyphene Screen (NotDetected) Ur Barbiturates Screen (NotDetected) Valproic Acid ug/mL U Tricyclic Antidepress (NotDetected) Ur Phencyclidine Scrn (NotDetected) Ur Amphetamines Screen (NotDetected) U Methamphetamines Scrn (NotDetected) U Benzodiazepines Scrn (NotDetected) Urine Cocaine Screen (NotDetected) U Marijuana (THC) Screen (NotDetected) Serum Alcohol <10 mg/dL 03/21/20 03/21/20 Range/Units 10:06 12:03 WBC (3.8-10.6) k/uL RBC (3.80-5.40) m/uL Hgb (11.4-16.0) gm/dL Hct (34.0-46.0) % MCV (80.0-100.0) fL MCH (25.0-35.0) pg MCHC (31.0-37.0) g/dL RDW (11.5-15.5) % Plt Count (150-450) k/uL Neutrophils % % Lymphocytes % % Monocytes % % Eosinophils % % Basophils % % Neutrophils # (1.3-7.7) k/uL Lymphocytes # (1.0-4.8) k/uL Monocytes # (0-1.0) k/uL Eosinophils # (0-0.7) k/uL Basophils # (0-0.2) k/uL Sodium (137-145) mmol/L Potassium (3.5-5.1) mmol/L Chloride (98-107) mmol/L Carbon Dioxide (22-30) mmol/L Anion Gap mmol/L BUN (7-17) mg/dL Creatinine (0.52-1.04) mg/dL Est GFR (CKD-EPI)AfAm (>60 ml/min/1.73 sqM) Est GFR (CKD-EPI)NonAf (>60 ml/min/1.73 sqM) Glucose (74-99) mg/dL POC Glucose (mg/dL) (75-99) mg/dL POC Glu Dna Sequencing Associate ID Calcium (8.4-10.2) mg/dL Magnesium (1.6-2.3) mg/dL Total Bilirubin (0.2-1.3) mg/dL AST (14-36) U/L ALT (4-34) U/L Alkaline Phosphatase (38-126) U/L Total Protein (6.3-8.2) g/dL Albumin (3.5-5.0) g/dL Urine Color Light Yellow Urine Appearance Clear (Clear) Urine pH 7.5 (5.0-8.0) Ur Specific [place] 1.005 (1.001-1.035) Urine Protein Negative (Negative) Urine Glucose (UA) Negative (Negative) Urine Ketones Negative (Negative) Urine Blood Negative (Negative) Urine Nitrite Negative (Negative) Urine Bilirubin Negative (Negative) Urine Urobilinogen <2.0 (<2.0) mg/dL Ur Leukocyte Esterase Trace H (Negative) Urine WBC 2 (0-5) /hpf Ur Squamous Epith Cells 1 (0-4) /hpf Urine Opiates Screen Not Detected (NotDetected) Ur Oxycodone Screen Not Detected (NotDetected) Urine Methadone Screen Not Detected (NotDetected) Ur Propoxyphene Screen Not Detected (NotDetected) Ur Barbiturates Screen Not Detected (NotDetected) Valproic Acid <10.0 ug/mL U Tricyclic Antidepress Not Detected (NotDetected) Ur Phencyclidine Scrn Not Detected (NotDetected) Ur Amphetamines Screen Not Detected (NotDetected) U Methamphetamines Scrn Not Detected (NotDetected) U Benzodiazepines Scrn Not Detected (NotDetected) Urine Cocaine Screen Not Detected (NotDetected) U Marijuana (THC) Screen Not Detected (NotDetected) Serum Alcohol mg/dL - EKG Data -: EKG Interpreted by Me EKG shows normal: sinus rhythm EKG Comments: Sinus rhythm a 93. Interval 172 QRS duration 86 daily since QTC 372/462 possible anterior infarct of undetermined age. This EKG compared to that done on 03/12/20 - Radiology Data Radiology results: report reviewed (I did review the imaging and report no acute findings.), image reviewed Critical Care Time Critical Care Time: Yes Total Critical Care Time: 35 Critical Care Time: Critical care time includes initial presentation with history physical labs x- rays multiple reevaluation the patient discussed review of old charting. Discussed with paramedics upon arrival. Discussion with the transporting crew as well as discussed with the receiving facility. Disposition Clinical Impression: Intractable seizure disorder Disposition: OTHER INSTITUTION NOT DEFINED Condition: Stable Referrals: None,Stated [Primary Care Provider] - 1-2 days - Out of Hospital Transfer - Req. Specs Out of Hospital Transfer - Requested Specifics: Other Emergency Center
--- NOTE | 2020-03-21 10:42 | CT ---
EXAMINATION TYPE: CT brain cspine wo con DATE OF EXAM: 03/21/2020 COMPARISON: Previous CT scan of the brain dated 03/12/2020. HISTORY: Trauma, seizure CT DLP: 1441 mGycm Automated exposure control for dose reduction was used. TECHNIQUE: CT scan of the head and cervical spine are performed without contrast. FINDINGS: BRAIN: Central structures are midline. There is no evidence of hydrocephalus. No acute focal lesion, mass effect or midline shift is seen. I do not see evidence of intracranial blood. There is chronic mucoperiosteal thickening involving the right sphenoid sinus. The remainder the para nasal sinuses and mastoids are clear.. IMPRESSION: 1. NO ACUTE INTRACRANIAL ABNORMALITY. 2. CHRONIC RIGHT-SIDED SPHENOIDAL SINUS MUCOSAL DISEASE. CERVICAL SPINE: There is mucoperiosteal thickening involving the sphenoid sinus. Visualized portions of the lungs are clear. Prevertebral soft tissues are normal. Vertebral body height and alignment are maintained. Atlantoaxial relationships are normal. There is n o significant degenerative change. No fractures are identified. No discal protrusion is seen. IMPRESSION: NORMAL CT SCAN OF THE CERVICAL SPINE.
[2020-03-21 12:13] VITALS: BP 119/73; PULSE 95
[2020-03-21 12:20] LABS: Appearance,Urine Clear (Clear); Bilirubin,Urine Negative (Negative); Blood,Urine Negative (Negative); Color,Urine Light Yellow; Glucose,Urine (UA) Negative (Negative); Ketones,Urine Negative (Negative); Leukocyte Esterase,Urine Trace (Negative); Nitrite,Urine Negative (Negative); PH, Urine 7.5 (5.0-8.0); Protein,Urine Negative (Negative); Specific Gravity,Urine 1.005 (1.001-1.035); Squamous Epithelial Cell,Urine 1 /hpf (0-4); Urobilinogen,Urine <2.0 mg/dL (<2.0); WBC,Urine 2 /hpf (0-5)
[2020-03-21 12:21] LABS: Amphetamine Screen,Urine Not Detected (NotDetected); Barbiturate Screen,Urine Not Detected (NotDetected); Benzodiazepines Screen,Urine Not Detected (NotDetected); Cocaine Screen,Urine Not Detected (NotDetected); Methadone Screen, Urine Not Detected (NotDetected); Opiate Screen,Urine Not Detected (NotDetected); Oxycodone Screen, Urine Not Detected (NotDetected); Phencyclidine Screen,Urine Not Detected (NotDetected); Tricyclic Antidepressant,Urine Not Detected (NotDetected); Urn Cannabinoid Scrn Not Detected (NotDetected)
[2020-03-21 13:56] VITALS: RESP 18
== END 2020-03-21 14:00 | disposition other institution (70) ==
LOC: EC 09:25
DX: G40.919 Epilepsy, unspecified, intractable, without status epilepticus (principal); S00.81XA Abrasion of other part of head, initial encounter; Z79.899 Other long term (current) drug therapy; Z91.018 Allergy to other foods; X58.XXXA Exposure to other specified factors, initial encounter
CPT/HCPCS: 36415; 93005; 80164; 80053; 83735; 85025; 81001; 80306; 72125; 70450; 99291; 96374; 96361 ×4; G0480; J2060; 80320

== ENCOUNTER 2020-04-13 19:54 | Emergency (ER) | payer OTHER ==
[2020-04-13 20:01] VITALS: TEMP 98.4
[2020-04-13] MEDS ORDERED: SODIUM CHLORIDE 0.9% 1,000 ML IV STA (20:29)
--- NOTE | 2020-04-13 20:39 | ED ---
General Adult HPI - General Chief complaint: Seizure Stated complaint: Seizures Time Seen by Provider: 04/13/20 20:02 Source: patient, EMS, RN notes reviewed Mode of arrival: EMS Limitations: no limitations - History of Present Illness Initial comments: 29-year-old female with a past medical history of lupus, seizure disorder presents to the emergency room for a chief complaint of seizures. Patient has a strong history of seizures since she was a child. Patient has a neurostimulator in place. Patient states that today she was at work when she had a seizure. It was an unknown amount of time the patient was assisted to the ground. seizure was estimated to be several minutes. The stimulator did not work and she was given intranasal Valium which did help. patient denies biting her tongue or losing control of bladder. Patient reports that she is changing her medications. Patient has been weaned off her Vimpat and started on Fycompa and Aptiom.her last dose of Vimpat was last night. She did take her morning medications. States she has been working closely with her neurologist out of [facility]. Patient reports that she has had more frequent seizures within the past couple weeks with the changing of this medication. Patient has no other complaints at this time including shortness of breath, chest pain, abdominal pain, nausea or vomiting, headache, or visual changes. - Related Data Home Medications Medication Instructions Recorded Confirmed Perampanel [Fycompa] 6 mg PO HS 03/12/20 03/21/20 Lacosamide [Vimpat] 200 mg PO BID 03/21/20 03/21/20 Allergies Allergy/AdvReac Type Severity Reaction Status Date / Time strawberries Allergy Rash/Hives Uncoded 04/13/20 20:04 Review of Systems ROS Statement: Those systems with pertinent positive or pertinent negative responses have been documented in the HPI. ROS Other: All systems not noted in ROS Statement are negative. Past Medical History Past Medical History: Seizure Disorder Additional Past Medical History / Comment(s): lupus History of Any Multi-Drug Resistant Organisms: None Reported Past Surgical History: No Surgical Hx Reported Additional Past Surgical History / Comment(s): Vagus nerve stimulator Past Anesthesia/Blood Transfusion Reactions: Unable to Obtain Past Psychological History: Anxiety Smoking Status: Never smoker Past Alcohol Use History: Occasional Past Drug Use History: None Reported - Past Family History family Family Medical History: No Reported History General Exam Limitations: no limitations General appearance: alert, in no apparent distress Head exam: Present: atraumatic, normocephalic, normal inspection Eye exam: Present: normal appearance, PERRL, EOMI. Absent: scleral icterus, conjunctival injection, periorbital swelling ENT exam: Present: normal exam, normal oropharynx (no lacerations of the tongue), mucous membranes moist, TM's normal bilaterally Neck exam: Present: normal inspection, full ROM. Absent: tenderness, meningismus, lymphadenopathy Respiratory exam: Present: normal lung sounds bilaterally. Absent: respiratory distress, wheezes, rales, rhonchi, stridor Cardiovascular Exam: Present: regular rate, normal rhythm, normal heart sounds. Absent: systolic murmur, diastolic murmur, rubs, gallop, clicks GI/Abdominal exam: Present: soft, normal bowel sounds. Absent: distended, tenderness, guarding, rebound, rigid Neurological exam: Present: alert, oriented X3, normal gait, other (GCS 15) Course Vital Signs 04/13/20 19:56 Temperature 98.4 F Pulse Rate 86 Respiratory 16 Rate Blood Pressure 116/88 O2 Sat by Pulse 99 Oximetry Medical Decision Making - Medical Decision Making Patient is alert and oriented 4. She is well-appearing. No seizures while in the emergency room. CBC is unremarkable. CMP does show mild hyponatremia of 128. Potassium 3.4. Urinalysis negative. HCG is negative. X-ray of the right shoulder was obtained as patient did have some mild pain however this was also negative. I did speak with patient's neurologist Dr. Brock Barakat. He would like to continue patient on acting on them and 5, blood. Reports that since sodium is higher than 125 we do not need to be acutely concerned. He would like to see her at her scheduled appointment next week to test her nerve stimulator. Patient is agreeable to this.I discussed this case with attending Dr. Lee who agrees with this assessment and treatment plan. - Lab Data Result diagrams: 04/13/20 20:46 04/13/20 20:46 Lab Results 04/13/20 04/13/20 04/13/20 Range/Units 20:46 20:46 20:46 WBC 9.0 (3.8-10.6) k/uL RBC 4.10 (3.80-5.40) m/uL Hgb 12.7 (11.4-16.0) gm/dL Hct 37.4 (34.0-46.0) % MCV 91.2 (80.0-100.0) fL MCH 31.0 (25.0-35.0) pg MCHC 33.9 (31.0-37.0) g/dL RDW 12.6 (11.5-15.5) % Plt Count 225 (150-450) k/uL Neutrophils % 71 % Lymphocytes % 18 % Monocytes % 6 % Eosinophils % 2 % Basophils % 1 % Neutrophils # 6.4 (1.3-7.7) k/uL Lymphocytes # 1.6 (1.0-4.8) k/uL Monocytes # 0.5 (0-1.0) k/uL Eosinophils # 0.2 (0-0.7) k/uL Basophils # 0.1 (0-0.2) k/uL Sodium 128 L (137-145) mmol/L Potassium 3.4 L (3.5-5.1) mmol/L Chloride 98 (98-107) mmol/L Carbon Dioxide 22 (22-30) mmol/L Anion Gap 8 mmol/L BUN 7 (7-17) mg/dL Creatinine 0.56 (0.52-1.04) mg/dL Est GFR (CKD-EPI)AfAm >90 (>60 ml/min/1.73 sqM) Est GFR (CKD-EPI)NonAf >90 (>60 ml/min/1.73 sqM) Glucose 109 H (74-99) mg/dL Calcium 8.8 (8.4-10.2) mg/dL Total Bilirubin 0.3 (0.2-1.3) mg/dL AST 19 (14-36) U/L ALT 11 (4-34) U/L Alkaline Phosphatase 55 (38-126) U/L Total Protein 6.2 L (6.3-8.2) g/dL Albumin 3.7 (3.5-5.0) g/dL HCG, Qual Not Detected Urine Color Colorless Urine Appearance Clear (Clear) Urine pH 6.0 (5.0-8.0) Ur Specific [place] 1.001 (1.001-1.035) Urine Protein Negative (Negative) Urine Glucose (UA) Negative (Negative) Urine Ketones Negative (Negative) Urine Blood Negative (Negative) Urine Nitrite Negative (Negative) Urine Bilirubin Negative (Negative) Urine Urobilinogen <2.0 (<2.0) mg/dL Ur Leukocyte Esterase Negative (Negative) Disposition Clinical Impression: Seizure disorder Disposition: HOME SELF-CARE Condition: Good Instructions (If sedation given, give patient instructions): Recurrent Seizures in Adults (ED) Additional Instructions: please follow-up with your neurologist at your scheduled appointment. If you have any worsening symptoms return to the emergency room. Is patient prescribed a controlled substance at d/c from ED?: No Referrals: Ailyn Jara MD [REFERRING] - 1-2 days Time of Disposition: 22:19
[2020-04-13 20:55] LABS: Basophils # (A) 0.1 k/uL (0-0.2); Basophils % (A) 1 %; Eosinophils # (A) 0.2 k/uL (0-0.7); Eosinophils % (A) 2 %; HCT 37.4 % (34.0-46.0); HGB 12.7 gm/dL (11.4-16.0); Lymphocytes # (A) 1.6 k/uL (1.0-4.8); Lymphocytes % (A) 18 %; MCHC 33.9 g/dL (31.0-37.0); MCV 91.2 fL (80.0-100.0); Mean Platelet Volume 7.4; Monocytes # (A) 0.5 k/uL (0-1.0); Monocytes % (A) 6 %; Neutrophils # (A) 6.4 k/uL (1.3-7.7); Neutrophils % (A) 71 %; Platelet Count 225 k/uL (150-450); RDW 12.6 % (11.5-15.5)
[2020-04-13 21:00] LABS: Appearance,Urine Clear (Clear); Bilirubin,Urine Negative (Negative); Blood,Urine Negative (Negative); Color,Urine Colorless; Glucose,Urine (UA) Negative (Negative); Ketones,Urine Negative (Negative); Leukocyte Esterase,Urine Negative (Negative); Nitrite,Urine Negative (Negative); Protein,Urine Negative (Negative); Specific Gravity,Urine 1.001 (1.001-1.035); Urobilinogen,Urine <2.0 mg/dL (<2.0)
[2020-04-13 21:05] LABS: ALT 11 U/L (4-34); AST 19 U/L (14-36); African American GFR (CKD) >90 (>60 ml/min/1.73 sqM); Albumin 3.7 g/dL (3.5-5.0); Alkaline Phosphatase 55 U/L (38-126); Anion Gap 8 mmol/L; Blood Urea Nitrogen 7 mg/dL (7-17); Calcium 8.8 mg/dL (8.4-10.2); Carbon Dioxide 22 mmol/L (22-30); Chloride 98 mmol/L (98-107); Glucose 109 mg/dL (74-99); Non-African American GFR(CKD) >90 (>60 ml/min/1.73 sqM); Potassium 3.4 mmol/L (3.5-5.1); Sodium 128 mmol/L (137-145); Total Bilirubin 0.3 mg/dL (0.2-1.3); Total Protein 6.2 g/dL (6.3-8.2)
--- NOTE | 2020-04-13 21:15 | XR ---
EXAMINATION TYPE: XR shoulder complete RT DATE OF EXAM: 04/13/2020 CLINICAL HISTORY: Pain after seizure and fall injury today. TECHNIQUE: Three views of the right shoulder are obtained. COMPARISON: Prior right shoulder x-ray August 20, 2008. FINDINGS: There is no acute fracture/dislocation evident in the right shoulder. Stable slight superi or positioning distal clavicle relative to acromion. Glenohumeral joint preserved.. The visualized r ibs are intact and unremarkable. IMPRESSION: There is no acute fracture or dislocation in the right shoulder.
[2020-04-13 21:23] LABS: HCG,Qualitative Serum Not Detected
[2020-04-13 22:29] VITALS: BP 106/67; PULSE 83; RESP 17
== END 2020-04-13 22:34 | disposition home or self-care (01) ==
LOC: EC 19:54
DX: G40.909 Epilepsy, unspecified, not intractable, without status epilepticus (principal); E87.1 Hypo-osmolality and hyponatremia; M25.511 Pain in right shoulder; Z91.018 Allergy to other foods; Z79.899 Other long term (current) drug therapy
CPT/HCPCS: 36415; 80053; 81003; 84703; 85025; 96360; 96361; 99284

== ENCOUNTER 2020-04-20 17:47 | Emergency (ER) | payer OTHER ==
[2020-04-20 17:55] VITALS: RESP 18; TEMP 98.7
--- NOTE | 2020-04-20 18:07 | ED ---
General Adult HPI - General Chief complaint: Seizure Stated complaint: Seizure Time Seen by Provider: 04/20/20 17:54 Source: patient, RN notes reviewed Mode of arrival: EMS Limitations: no limitations - History of Present Illness Initial comments: 29-year-old female with a known seizure disorder presents to the emergency department for a chief complaint of seizure activity. Apparently patient was at work when she started to not feel well and sat down. Patient had 2 "small" seizures lasting only a few seconds. Patient reports that her neurostimulator was used and it did work. Patient was then transported to the hospital. Patient is currently on Fycompa and Aptiom. Patient was last seen in the emergency room about 10 days ago. At that point I did speak with her neurologist who reported he wanted to see her this . Patient still has this appointment. Patient denies any injuries. Patient has no other complaints at this time including shortness of breath, chest pain, abdominal pain, nausea or vomiting, headache, or visual changes. - Related Data Home Medications Medication Instructions Recorded Confirmed Eslicarbazepine Acetate [Aptiom] 800 mg PO BID@0730,1930 04/20/20 04/20/20 Perampanel [Fycompa] 8 mg PO HS 04/20/20 04/20/20 Voltoco (Diazepam) Nasal [place] 20mg 1 spray EA NOSTRIL ONCE PRN 04/20/20 04/20/20 Allergies Allergy/AdvReac Type Severity Reaction Status Date / Time strawberries Allergy Rash/Hives Uncoded 04/20/20 18:20 Review of Systems ROS Statement: Those systems with pertinent positive or pertinent negative responses have been documented in the HPI. ROS Other: All systems not noted in ROS Statement are negative. Past Medical History Past Medical History: Seizure Disorder Additional Past Medical History / Comment(s): lupus History of Any Multi-Drug Resistant Organisms: None Reported Past Surgical History: No Surgical Hx Reported Additional Past Surgical History / Comment(s): Vagus nerve stimulator Past Anesthesia/Blood Transfusion Reactions: Unable to Obtain Past Psychological History: Anxiety Smoking Status: Never smoker Past Alcohol Use History: Occasional Past Drug Use History: None Reported - Past Family History family Family Medical History: No Reported History General Exam Limitations: no limitations General appearance: alert, in no apparent distress Head exam: Present: atraumatic, normocephalic, normal inspection Eye exam: Present: normal appearance, PERRL, EOMI. Absent: scleral icterus, conjunctival injection, periorbital swelling ENT exam: Present: normal exam, mucous membranes moist Neck exam: Present: normal inspection, full ROM. Absent: tenderness, meningismus, lymphadenopathy Respiratory exam: Present: normal lung sounds bilaterally. Absent: respiratory distress, wheezes, rales, rhonchi, stridor Cardiovascular Exam: Present: regular rate, normal rhythm, normal heart sounds. Absent: systolic murmur, diastolic murmur, rubs, gallop, clicks GI/Abdominal exam: Present: soft, normal bowel sounds. Absent: distended, tenderness, guarding, rebound, rigid Neurological exam: Present: alert, oriented X3, CN II-XII intact, other (GCS 15) Course Vital Signs 04/20/20 04/20/20 17:52 18:55 Temperature 98.7 F Pulse Rate 90 71 Respiratory 18 18 Rate Blood Pressure 114/75 120/85 O2 Sat by Pulse 98 99 Oximetry Medical Decision Making - Medical Decision Making Patient is a well-appearing female alert and oriented. No focal neurologic deficits. No injuries. No tongue lacerations or loss of bladder control. CBC CMP unremarkable. Sodium level is 135. I did speak with patient's neurologist last week and he will see her . Patient is requesting a work note until then. Patient will follow up and return for any worsening symptoms. - Lab Data Result diagrams: 04/20/20 18:16 04/20/20 18:16 Lab Results 04/20/20 04/20/20 Range/Units 18:16 18:16 WBC 9.3 (3.8-10.6) k/uL RBC 4.24 (3.80-5.40) m/uL Hgb 12.7 (11.4-16.0) gm/dL Hct 39.0 (34.0-46.0) % MCV 92.1 (80.0-100.0) fL MCH 30.1 (25.0-35.0) pg MCHC 32.7 (31.0-37.0) g/dL RDW 12.6 (11.5-15.5) % Plt Count 262 (150-450) k/uL Neutrophils % 74 % Lymphocytes % 17 % Monocytes % 5 % Eosinophils % 1 % Basophils % 0 % Neutrophils # 6.9 (1.3-7.7) k/uL Lymphocytes # 1.6 (1.0-4.8) k/uL Monocytes # 0.5 (0-1.0) k/uL Eosinophils # 0.1 (0-0.7) k/uL Basophils # 0.0 (0-0.2) k/uL Sodium 135 L (137-145) mmol/L Potassium 3.7 (3.5-5.1) mmol/L Chloride 104 (98-107) mmol/L Carbon Dioxide 23 (22-30) mmol/L Anion Gap 8 mmol/L BUN 5 L (7-17) mg/dL Creatinine 0.67 (0.52-1.04) mg/dL Est GFR (CKD-EPI)AfAm >90 (>60 ml/min/1.73 sqM) Est GFR (CKD-EPI)NonAf >90 (>60 ml/min/1.73 sqM) Glucose 95 (74-99) mg/dL Calcium 9.1 (8.4-10.2) mg/dL Total Bilirubin 0.2 (0.2-1.3) mg/dL AST 17 (14-36) U/L ALT 10 (4-34) U/L Alkaline Phosphatase 62 (38-126) U/L Total Protein 6.4 (6.3-8.2) g/dL Albumin 3.8 (3.5-5.0) g/dL Disposition Clinical Impression: Seizure disorder Disposition: HOME SELF-CARE Condition: Good Instructions (If sedation given, give patient instructions): Recurrent Seizures in Adults (ED) Additional Instructions: please follow-up with your neurologist on at your scheduled appointment. Return to the emergency room for any worsening symptoms. Is patient prescribed a controlled substance at d/c from ED?: No Referrals: Ailyn Jara MD [REFERRING] - 1-2 days Time of Disposition: 19:01
[2020-04-20 18:24] LABS: Basophils % (A) 0 %; Eosinophils # (A) 0.1 k/uL (0-0.7); Eosinophils % (A) 1 %; HGB 12.7 gm/dL (11.4-16.0); Lymphocytes # (A) 1.6 k/uL (1.0-4.8); Lymphocytes % (A) 17 %; MCH 30.1 pg (25.0-35.0); MCHC 32.7 g/dL (31.0-37.0); MCV 92.1 fL (80.0-100.0); Mean Platelet Volume 7.4; Monocytes # (A) 0.5 k/uL (0-1.0); Monocytes % (A) 5 %; Neutrophils # (A) 6.9 k/uL (1.3-7.7); Neutrophils % (A) 74 %; Platelet Count 262 k/uL (150-450); RBC 4.24 m/uL (3.80-5.40); RDW 12.6 % (11.5-15.5); WBC 9.3 k/uL (3.8-10.6)
[2020-04-20 18:34] LABS: ALT 10 U/L (4-34); AST 17 U/L (14-36); African American GFR (CKD) >90 (>60 ml/min/1.73 sqM); Albumin 3.8 g/dL (3.5-5.0); Alkaline Phosphatase 62 U/L (38-126); Anion Gap 8 mmol/L; Blood Urea Nitrogen 5 mg/dL (7-17); Calcium 9.1 mg/dL (8.4-10.2); Carbon Dioxide 23 mmol/L (22-30); Chloride 104 mmol/L (98-107); Glucose 95 mg/dL (74-99); Non-African American GFR(CKD) >90 (>60 ml/min/1.73 sqM); Potassium 3.7 mmol/L (3.5-5.1); Sodium 135 mmol/L (137-145); Total Bilirubin 0.2 mg/dL (0.2-1.3); Total Protein 6.4 g/dL (6.3-8.2)
[2020-04-20] MEDS ORDERED: IBUPROFEN 600 MG TAB PO STA (19:01)
[2020-04-20 19:12] VITALS: BP 120/80; PULSE 82
== END 2020-04-20 19:11 | disposition home or self-care (01) ==
LOC: EC 17:47
DX: G40.909 Epilepsy, unspecified, not intractable, without status epilepticus (principal); F41.9 Anxiety disorder, unspecified; Z79.899 Other long term (current) drug therapy; Z91.018 Allergy to other foods; Z96.82 Presence of neurostimulator
CPT/HCPCS: 36415; 80053; 85025; 99284

== ENCOUNTER 2020-08-29 11:48 | Emergency (ER) | payer OTHER ==
[2020-08-29 12:14] LABS: Basophils % (A) 1 %; Eosinophils # (A) 0.1 k/uL (0-0.7); Eosinophils % (A) 1 %; HCT 39.4 % (34.0-46.0); HGB 13.3 gm/dL (11.4-16.0); Lymphocytes # (A) 1.1 k/uL (1.0-4.8); Lymphocytes % (A) 14 %; MCH 30.9 pg (25.0-35.0); MCHC 33.8 g/dL (31.0-37.0); MCV 91.4 fL (80.0-100.0); Mean Platelet Volume 7.7; Monocytes # (A) 0.4 k/uL (0-1.0); Monocytes % (A) 5 %; Neutrophils # (A) 6.1 k/uL (1.3-7.7); Neutrophils % (A) 79 %; Platelet Count 218 k/uL (150-450); RBC 4.31 m/uL (3.80-5.40); WBC 7.7 k/uL (3.8-10.6)
--- NOTE | 2020-08-29 12:21 | ED ---
General Adult HPI - General Chief complaint: Seizure Stated complaint: Seizure Time Seen by Provider: 08/29/20 11:58 Source: EMS Mode of arrival: EMS Limitations: no limitations - History of Present Illness Initial comments: Dictation was produced using [employer] dictation software. please excuse any grammatical, word or spelling errors. This patient was cared for during a federal and state declared state of emergency secondary to Covid 19 Chief Complaint: 29-year-old female extensive history of epilepsy presents with seizure History of Present Illness: 29-year-old female she is on multiple seizure medications. Patient had a seizure twice today. This is not common for her. She sees a Dr. Tenorio in [facility]. She takes 3 seizure medications. Patient states she has seizures often. She reports that its noncom inferred to have a seizure this often. Patient states she gets seizures every 1-2 months. States that her seizures are better controlled with her new seizure medication regimen. Patient states she's been nauseated. EMS was called for seizure-like activity. She was evaluated by EMS. She was placed in EMS regular she had another 32nd episode of seizure. She was postictal following the tonic-clonic episode. Patient states she feels nauseated. She reports that one the main reasons why she is here. She's been nauseated since last night. Patient denies abdominal pain. Denies any chance of . The ROS documented in this emergency department record has been reviewed and confirmed by me. Those systems with pertinent positive or negative responses have been documented in the HPI. All other systems are other negative and/or noncontributory. PHYSICAL EXAM: General Impression: Alert and oriented x3, not in acute distress, drowsy HEENT: Normocephalic atraumatic, extra-ocular movements intact, pupils equal and reactive to light bilaterally, mucous membranes moist. Cardiovascular: Heart regular rate and rhythm Chest: Able to complete full sentences, no retractions, no tachypnea Abdomen: abdomen soft, non-tender, non-distended, no organomegaly Musculoskeletal: Pulses present and equal in all extremities, no peripheral edema Motor: no focal deficits noted Neurological: CN II-XII grossly intact, no focal motor or sensory deficits noted Skin: Intact with no visualized rashes Psych: Normal affect and mood ED course: 29-year-old female extensive history of seizure. She at baseline has seizures every 1-2 months. She reports compliance with her seizure medications. She states she is been better controlled over the last several weeks. Vital signs upon arrival are within acceptable limits. Laboratory evaluation obtained. CBC, metabolic panel is unremarkable. Urine hCG is negative. Patient observed in emergency department for almost 3 hours. She was evaluated at bedside at 2:30 PM vitamin stable medical condition. Patient and mother was not bedside were notified of results. Patient is agreeable to discharge. She is well-appearing has had no issues while in the emergency department. Patient given some Zofran ODT. Advised to follow-up with her seizure doctor. EKG interpretation: Ventricular rate 77, normal sinus rhythm,. And 150, QRS 80, QTC 420. No [place] prolongation, no QTC prolongation, no ST or T-wave changes noted. Overall, this EKG is unremarkable - Related Data Home Medications Medication Instructions Recorded Confirmed Eslicarbazepine Acetate [Aptiom] 800 mg PO BID@0730,1930 04/20/20 04/20/20 Perampanel [Fycompa] 8 mg PO HS 04/20/20 04/20/20 Voltoco (Diazepam) Nasal [place] 20mg 1 spray EA NOSTRIL ONCE PRN 04/20/20 04/20/20 Allergies Allergy/AdvReac Type Severity Reaction Status Date / Time strawberries Allergy Rash/Hives Uncoded 08/29/20 11:58 Review of Systems ROS Statement: Those systems with pertinent positive or pertinent negative responses have been documented in the HPI. ROS Other: All systems not noted in ROS Statement are negative. Past Medical History Past Medical History: Seizure Disorder Additional Past Medical History / Comment(s): lupus History of Any Multi-Drug Resistant Organisms: None Reported Past Surgical History: No Surgical Hx Reported Additional Past Surgical History / Comment(s): Vagus nerve stimulator Past Anesthesia/Blood Transfusion Reactions: Unable to Obtain Past Psychological History: Anxiety Smoking Status: Never smoker Past Alcohol Use History: Occasional Past Drug Use History: None Reported - Past Family History family Family Medical History: No Reported History General Exam Limitations: no limitations Course Vital Signs 08/29/20 11:54 Temperature 99.2 F Pulse Rate 84 Respiratory 18 Rate Blood Pressure 121/80 O2 Sat by Pulse 97 Oximetry Medical Decision Making - Lab Data Result diagrams: 08/29/20 12:04 08/29/20 12:04 Lab Results 08/29/20 08/29/20 08/29/20 Range/Units 12:04 12:04 12:35 WBC 7.7 (3.8-10.6) k/uL RBC 4.31 (3.80-5.40) m/uL Hgb 13.3 (11.4-16.0) gm/dL Hct 39.4 (34.0-46.0) % MCV 91.4 (80.0-100.0) fL MCH 30.9 (25.0-35.0) pg MCHC 33.8 (31.0-37.0) g/dL RDW 13.0 (11.5-15.5) % Plt Count 218 (150-450) k/uL MPV 7.7 Neutrophils % 79 % Lymphocytes % 14 % Monocytes % 5 % Eosinophils % 1 % Basophils % 1 % Neutrophils # 6.1 (1.3-7.7) k/uL Lymphocytes # 1.1 (1.0-4.8) k/uL Monocytes # 0.4 (0-1.0) k/uL Eosinophils # 0.1 (0-0.7) k/uL Basophils # 0.0 (0-0.2) k/uL Sodium 137 (137-145) mmol/L Potassium 3.8 (3.5-5.1) mmol/L Chloride 110 H (98-107) mmol/L Carbon Dioxide 24 (22-30) mmol/L Anion Gap 3 mmol/L BUN 8 (7-17) mg/dL Creatinine 0.61 (0.52-1.04) mg/dL Est GFR (CKD-EPI)AfAm >90 (>60 ml/min/1.73 sqM) Est GFR (CKD-EPI)NonAf >90 (>60 ml/min/1.73 sqM) Glucose 98 (74-99) mg/dL Calcium 8.8 (8.4-10.2) mg/dL Ammonia 25 (<30) umol/L Urine HCG, Qual (Not Detectd) 08/29/20 Range/Units 13:30 WBC (3.8-10.6) k/uL RBC (3.80-5.40) m/uL Hgb (11.4-16.0) gm/dL Hct (34.0-46.0) % MCV (80.0-100.0) fL MCH (25.0-35.0) pg MCHC (31.0-37.0) g/dL RDW (11.5-15.5) % Plt Count (150-450) k/uL MPV Neutrophils % % Lymphocytes % % Monocytes % % Eosinophils % % Basophils % % Neutrophils # (1.3-7.7) k/uL Lymphocytes # (1.0-4.8) k/uL Monocytes # (0-1.0) k/uL Eosinophils # (0-0.7) k/uL Basophils # (0-0.2) k/uL Sodium (137-145) mmol/L Potassium (3.5-5.1) mmol/L Chloride (98-107) mmol/L Carbon Dioxide (22-30) mmol/L Anion Gap mmol/L BUN (7-17) mg/dL Creatinine (0.52-1.04) mg/dL Est GFR (CKD-EPI)AfAm (>60 ml/min/1.73 sqM) Est GFR (CKD-EPI)NonAf (>60 ml/min/1.73 sqM) Glucose (74-99) mg/dL Calcium (8.4-10.2) mg/dL Ammonia (<30) umol/L Urine HCG, Qual Not Detected (Not Detectd) Disposition Clinical Impression: Recurrent seizures Disposition: HOME SELF-CARE Condition: Fair Instructions (If sedation given, give patient instructions): Recurrent Seizures in Adults (ED) Additional Instructions: Follow-up with seizure doctor. Is patient prescribed a controlled substance at d/c from ED?: No Referrals: Nonstaff,Physician [Primary Care Provider] - 1-2 days Time of Disposition: 14:36
[2020-08-29 12:25] LABS: African American GFR (CKD) >90 (>60 ml/min/1.73 sqM); Anion Gap 3 mmol/L; Blood Urea Nitrogen 8 mg/dL (7-17); Calcium 8.8 mg/dL (8.4-10.2); Carbon Dioxide 24 mmol/L (22-30); Chloride 110 mmol/L (98-107); Glucose 98 mg/dL (74-99); Non-African American GFR(CKD) >90 (>60 ml/min/1.73 sqM); Potassium 3.8 mmol/L (3.5-5.1); Sodium 137 mmol/L (137-145)
[2020-08-29] MEDS ORDERED: ONDANSETRON 4 MG/2 ML VIAL IVP STA (12:38)
[2020-08-29] MEDS ORDERED: SODIUM CHLORIDE 0.9% 1,000 ML IV STA (12:39)
[2020-08-29] MEDS ORDERED: ONDANSETRON 4 MG ODT STARTER PACK 2 TAB BTL PO STA (14:37)
[2020-08-29 14:48] LABS: ALT 10 U/L (4-34); AST 17 U/L (14-36); Albumin 3.5 g/dL (3.5-5.0); Alkaline Phosphatase 46 U/L (38-126); Total Bilirubin 0.3 mg/dL (0.2-1.3); Total Protein 6.4 g/dL (6.3-8.2)
[2020-08-29 15:28] VITALS: BP 116/78; PULSE 81; RESP 16; TEMP 98.6
== END 2020-08-29 15:27 | disposition home or self-care (01) ==
LOC: EC 11:48
DX: G40.909 Epilepsy, unspecified, not intractable, without status epilepticus (principal); M32.9 Systemic lupus erythematosus, unspecified; Z79.899 Other long term (current) drug therapy; Z91.018 Allergy to other foods
CPT/HCPCS: 36415; 93005; 80053; 82140; 85025; 81025; 99284; 96374; 96361; J2405; S0119

== ENCOUNTER 2020-09-22 22:58 | Emergency (ER) | payer OTHER ==
[2020-09-22 23:05] VITALS: TEMP 98.1
--- NOTE | 2020-09-22 23:33 | ED ---
Seizure HPI - General Chief Complaint: Seizure Stated Complaint: Seizure Time Seen by Provider: 09/22/20 23:01 Source: patient, EMS, RN notes reviewed, old records reviewed Mode of arrival: EMS Limitations: no limitations - History of Present Illness Initial Comments: This is a 22-year-old female with known history of seizures complex seizures coming with seizure today. Last seizure was 3 months ago. Taking medications as prescribed no other illnesses noted. Patient states he did hit her head during the course of the seizure and a mild current headache. Otherwise no recent drug or alcohol abuse, again is been taking medications as prescribed no fevers MD Complaint: seizure -: hour(s) Description of Episode: loss of consciousness, tonic-clonic movement, post-event confusion -: second(s) Witnessed: yes - by bystander Seizure History: none, known seizure disorder Place: work Possible Precipitating Event: head injury Associated Symptoms: denies other symptoms Treatments Prior to Arrival: none - Related Data Home Medications Medication Instructions Recorded Confirmed Eslicarbazepine Acetate [Aptiom] 800 mg PO BID@0730,1930 04/20/20 04/20/20 Perampanel [Fycompa] 8 mg PO HS 04/20/20 04/20/20 Voltoco (Diazepam) Nasal [place] 20mg 1 spray EA NOSTRIL ONCE PRN 04/20/20 04/20/20 Allergies Allergy/AdvReac Type Severity Reaction Status Date / Time strawberries Allergy Rash/Hives Uncoded 09/22/20 23:05 Review of Systems ROS Statement: Those systems with pertinent positive or pertinent negative responses have been documented in the HPI. ROS Other: All systems not noted in ROS Statement are negative. Past Medical History Past Medical History: Seizure Disorder Additional Past Medical History / Comment(s): lupus History of Any Multi-Drug Resistant Organisms: None Reported Past Surgical History: No Surgical Hx Reported Additional Past Surgical History / Comment(s): Vagus nerve stimulator Past Anesthesia/Blood Transfusion Reactions: Unable to Obtain Past Psychological History: Anxiety Smoking Status: Never smoker Past Alcohol Use History: Occasional Past Drug Use History: None Reported - Past Family History family Family Medical History: No Reported History General Exam Limitations: no limitations General appearance: alert, in no apparent distress Head exam: Present: atraumatic, normocephalic, normal inspection Eye exam: Present: normal appearance, PERRL, EOMI. Absent: scleral icterus, conjunctival injection, periorbital swelling ENT exam: Present: normal exam, mucous membranes moist Neck exam: Present: normal inspection. Absent: tenderness, meningismus, lymphadenopathy Respiratory exam: Present: normal lung sounds bilaterally. Absent: respiratory distress, wheezes, rales, rhonchi, stridor Cardiovascular Exam: Present: regular rate, normal rhythm, normal heart sounds. Absent: systolic murmur, diastolic murmur, rubs, gallop, clicks GI/Abdominal exam: Present: soft, normal bowel sounds. Absent: distended, tenderness, guarding, rebound, rigid Extremities exam: Present: normal inspection, full ROM, normal capillary refill. Absent: tenderness, pedal edema, joint swelling, calf tenderness Back exam: Present: normal inspection Neurological exam: Present: alert, oriented X3, CN II-XII intact Psychiatric exam: Present: normal affect, normal mood Skin exam: Present: warm, dry, intact, normal color. Absent: rash Course Vital Signs 09/22/20 09/23/20 22:59 01:00 Temperature 98.1 F Pulse Rate 65 57 L Respiratory 18 16 Rate Blood Pressure 119/72 107/70 O2 Sat by Pulse 97 99 Oximetry - Reevaluation(s) Reevaluation #1: Medical record is reviewed Patient symptoms are resolved, patient has no significant complaints Patient informed of results and questions answered Patient is okay for discharge Medical Decision Making - Medical Decision Making 22 female who was seen and evaluated. Patient brought in for seizure-like activity with head injury. CT brain is negative for acute disease patient has no recurrent seizure and can be discharged home - Lab Data Result diagrams: 09/22/20 23:59 09/22/20 23:59 Lab Results 09/22/20 09/22/20 09/23/20 Range/Units 23:59 23:59 00:04 WBC 7.1 (3.8-10.6) k/uL RBC 4.32 (3.80-5.40) m/uL Hgb 13.8 (11.4-16.0) gm/dL Hct 39.1 (34.0-46.0) % MCV 90.5 (80.0-100.0) fL MCH 32.0 (25.0-35.0) pg MCHC 35.4 (31.0-37.0) g/dL RDW 12.5 (11.5-15.5) % Plt Count 225 (150-450) k/uL MPV 7.8 Neutrophils % 68 % Lymphocytes % 22 % Monocytes % 6 % Eosinophils % 1 % Basophils % 1 % Neutrophils # 4.8 (1.3-7.7) k/uL Lymphocytes # 1.6 (1.0-4.8) k/uL Monocytes # 0.5 (0-1.0) k/uL Eosinophils # 0.1 (0-0.7) k/uL Basophils # 0.1 (0-0.2) k/uL Sodium 134 L (137-145) mmol/L Potassium 3.7 (3.5-5.1) mmol/L Chloride 102 (98-107) mmol/L Carbon Dioxide 26 (22-30) mmol/L Anion Gap 6 mmol/L BUN 3 L (7-17) mg/dL Creatinine 0.74 (0.52-1.04) mg/dL Est GFR (CKD-EPI)AfAm >90 (>60 ml/min/1.73 sqM) Est GFR (CKD-EPI)NonAf >90 (>60 ml/min/1.73 sqM) Glucose 84 (74-99) mg/dL Calcium 9.4 (8.4-10.2) mg/dL Total Bilirubin 0.4 (0.2-1.3) mg/dL AST 18 (14-36) U/L ALT 10 (4-34) U/L Alkaline Phosphatase 60 (38-126) U/L Total Protein 7.0 (6.3-8.2) g/dL Albumin 4.1 (3.5-5.0) g/dL Salicylates <1.0 mg/dL Urine Opiates Screen Not Detected (NotDetected) Ur Oxycodone Screen Not Detected (NotDetected) Urine Methadone Screen Not Detected (NotDetected) Ur Propoxyphene Screen Not Detected (NotDetected) Acetaminophen <10.0 ug/mL Ur Barbiturates Screen Not Detected (NotDetected) U Tricyclic Antidepress Not Detected (NotDetected) Ur Phencyclidine Scrn Not Detected (NotDetected) Ur Amphetamines Screen Not Detected (NotDetected) U Methamphetamines Scrn Not Detected (NotDetected) U Benzodiazepines Scrn Not Detected (NotDetected) Urine Cocaine Screen Not Detected (NotDetected) U Marijuana (THC) Screen Not Detected (NotDetected) Serum Alcohol <10 mg/dL - EKG Data -: EKG Interpreted by Me (EKG is sinus rhythm 67 MD 148 QRS 86 QTc 435) - Radiology Data Radiology results: report reviewed (CT brain is negative for acute disease), image reviewed Disposition Clinical Impression: Recurrent seizures Disposition: HOME SELF-CARE Condition: Good Instructions (If sedation given, give patient instructions): Recurrent Seizures in Adults (ED) Is patient prescribed a controlled substance at d/c from ED?: No Referrals: None,Stated [Primary Care Provider] - 1-2 days
[2020-09-22] MEDS ORDERED: SODIUM CHLORIDE 0.9% 1,000 ML IV STA (23:48)
[2020-09-23 00:23] LABS: Basophils # (A) 0.1 k/uL (0-0.2); Basophils % (A) 1 %; Eosinophils # (A) 0.1 k/uL (0-0.7); Eosinophils % (A) 1 %; HCT 39.1 % (34.0-46.0); HGB 13.8 gm/dL (11.4-16.0); Lymphocytes # (A) 1.6 k/uL (1.0-4.8); Lymphocytes % (A) 22 %; MCHC 35.4 g/dL (31.0-37.0); MCV 90.5 fL (80.0-100.0); Mean Platelet Volume 7.8; Monocytes # (A) 0.5 k/uL (0-1.0); Monocytes % (A) 6 %; Neutrophils # (A) 4.8 k/uL (1.3-7.7); Neutrophils % (A) 68 %; Platelet Count 225 k/uL (150-450); RBC 4.32 m/uL (3.80-5.40); RDW 12.5 % (11.5-15.5); WBC 7.1 k/uL (3.8-10.6)
[2020-09-23 00:33] LABS: ALT 10 U/L (4-34); AST 18 U/L (14-36); Acetaminophen <10.0 ug/mL; African American GFR (CKD) >90 (>60 ml/min/1.73 sqM); Albumin 4.1 g/dL (3.5-5.0); Alcohol <10 mg/dL; Alkaline Phosphatase 60 U/L (38-126); Anion Gap 6 mmol/L; Blood Urea Nitrogen 3 mg/dL (7-17); Calcium 9.4 mg/dL (8.4-10.2); Carbon Dioxide 26 mmol/L (22-30); Chloride 102 mmol/L (98-107); Glucose 84 mg/dL (74-99); Non-African American GFR(CKD) >90 (>60 ml/min/1.73 sqM); Potassium 3.7 mmol/L (3.5-5.1); Salicylate <1.0 mg/dL; Sodium 134 mmol/L (137-145); Total Bilirubin 0.4 mg/dL (0.2-1.3)
--- NOTE | 2020-09-23 00:53 | CT ---
EXAM: CT Head Without Intravenous Contrast CLINICAL HISTORY: ITS.REASON CT Reason: seizure activity TECHNIQUE: Axial computed tomography images of the head/brain without intravenous contrast. CTDI is 49.27 mGy and DLP is 1143.4 mGy-cm. This CT exam was performed using one or more of the following dose reduction techniques: automated exposure control, adjustment of the mA and/or kV according to patient size, and/or use of iterative reconstruction technique. COMPARISON: CT 03/12/20 FINDINGS: Artifacts: Motion artifact. Brain: No definite intracranial hemorrhage. No acute cortical infarct. No mass effect or midline shift. Ventricles: Unremarkable. Bones/joints: No acute fracture. Soft tissues: Unremarkable. Sinuses: Right maxillary sinus mucous retention cyst. Mastoid air cells: Unremarkable as visualized. IMPRESSION: No acute intracranial process.
[2020-09-23 00:55] LABS: Cocaine Screen,Urine Not Detected (NotDetected); Phencyclidine Screen,Urine Not Detected (NotDetected); Urn Cannabinoid Scrn Not Detected (NotDetected)
[2020-09-23 00:56] LABS: Amphetamine Screen,Urine Not Detected (NotDetected); Barbiturate Screen,Urine Not Detected (NotDetected); Benzodiazepines Screen,Urine Not Detected (NotDetected); Methadone Screen, Urine Not Detected (NotDetected); Opiate Screen,Urine Not Detected (NotDetected); Oxycodone Screen, Urine Not Detected (NotDetected); Tricyclic Antidepressant,Urine Not Detected (NotDetected)
[2020-09-23 01:17] VITALS: BP 107/70; PULSE 57; RESP 16
== END 2020-09-23 01:45 | disposition home or self-care (01) ==
LOC: EC 22:58
DX: G40.909 Epilepsy, unspecified, not intractable, without status epilepticus (principal); M32.9 Systemic lupus erythematosus, unspecified; F41.9 Anxiety disorder, unspecified; Z79.899 Other long term (current) drug therapy; Z91.018 Allergy to other foods; Z96.82 Presence of neurostimulator
CPT/HCPCS: 36415; 93005; 80053; 85025; 80306; 83520; 80143; 70450; 99285; 96360; G0480; 80320

== ENCOUNTER 2020-11-02 14:58 | Emergency (ER) | payer OTHER ==
[2020-11-02 15:16] VITALS: RESP 18; TEMP 98.7
[2020-11-02] MEDS ORDERED: SODIUM CHLORIDE 0.9% 1,000 ML IV STA (16:19)
[2020-11-02 16:46] LABS: Basophils # (A) 0.1 k/uL (0-0.2); Basophils % (A) 1 %; Eosinophils # (A) 0.1 k/uL (0-0.7); Eosinophils % (A) 2 %; HCT 42.4 % (34.0-46.0); HGB 14.4 gm/dL (11.4-16.0); Lymphocytes % (A) 17 %; MCHC 33.9 g/dL (31.0-37.0); MCV 94.5 fL (80.0-100.0); Mean Platelet Volume 7.6; Monocytes # (A) 0.3 k/uL (0-1.0); Monocytes % (A) 6 %; Neutrophils # (A) 4.1 k/uL (1.3-7.7); Neutrophils % (A) 73 %; Platelet Count 233 k/uL (150-450); RBC 4.49 m/uL (3.80-5.40); RDW 12.6 % (11.5-15.5); WBC 5.6 k/uL (3.8-10.6)
[2020-11-02 16:51] LABS: ALT 11 U/L (4-34); AST 17 U/L (14-36); African American GFR (CKD) >90 (>60 ml/min/1.73 sqM); Albumin 4.3 g/dL (3.5-5.0); Alkaline Phosphatase 76 U/L (38-126); Anion Gap 11 mmol/L; Blood Urea Nitrogen 7 mg/dL (7-17); Calcium 9.3 mg/dL (8.4-10.2); Carbon Dioxide 26 mmol/L (22-30); Chloride 104 mmol/L (98-107); Glucose 92 mg/dL (74-99); Magnesium 2.1 mg/dL (1.6-2.3); Non-African American GFR(CKD) >90 (>60 ml/min/1.73 sqM); Potassium 4.5 mmol/L (3.5-5.1); Sodium 141 mmol/L (137-145); Total Bilirubin 0.4 mg/dL (0.2-1.3); Total Protein 7.4 g/dL (6.3-8.2)
[2020-11-02 16:58] LABS: INR 1.1 (<1.2); Prothrombin Time 11.1 sec (9.0-12.0)
--- NOTE | 2020-11-02 17:00 | ED ---
General Adult HPI - General Chief complaint: Weakness Stated complaint: Weakness Time Seen by Provider: 11/02/20 15:38 Source: patient, RN notes reviewed Mode of arrival: ambulatory Limitations: no limitations - History of Present Illness Initial comments: 30-year-old female with a past medical history of seizure disorder presents to the emergency room for a chief complaint of syncope. Patient states she has been having syncopal episodes for quite some time. Patient had some last week but did not have any for about a week. Mother reports that today when she got home patient was more tired than usual so she brought her into the emergency room. Reports that when she got in the ER she had a syncopal episode. Patient states they are scheduled to have an echocardiogram tomorrow. Patient denies any chest pain. Denies any lightheadedness. Denies nausea vomiting. Patient does have a history of seizures but does not feel that these are seiz ures.Patient has no other complaints at this time including shortness of breath, chest pain, abdominal pain, nausea or vomiting, headache, or visual changes. - Related Data Home Medications Medication Instructions Recorded Confirmed Eslicarbazepine Acetate [Aptiom] 800 mg PO BID@[id number],1930 04/20/20 04/20/20 Perampanel [Fycompa] 8 mg PO HS 04/20/20 04/20/20 Voltoco (Diazepam) Nasal [place] 20mg 1 spray EA NOSTRIL ONCE PRN 04/20/20 04/20/20 Allergies Allergy/AdvReac Type Severity Reaction Status Date / Time strawberries Allergy Rash/Hives Uncoded 11/02/20 15:16 Review of Systems ROS Statement: Those systems with pertinent positive or pertinent negative responses have been documented in the HPI. ROS Other: All systems not noted in ROS Statement are negative. Past Medical History Past Medical History: Seizure Disorder Additional Past Medical History / Comment(s): lupus History of Any Multi-Drug Resistant Organisms: None Reported Past Surgical History: No Surgical Hx Reported Additional Past Surgical History / Comment(s): Vagus nerve stimulator Past Anesthesia/Blood Transfusion Reactions: Unable to Obtain Past Psychological History: Anxiety Smoking Status: Never smoker Past Alcohol Use History: Occasional Past Drug Use History: None Reported - Past Family History family Family Medical History: No Reported History General Exam Limitations: no limitations General appearance: alert, in no apparent distress Head exam: Present: atraumatic, normocephalic, normal inspection Eye exam: Present: normal appearance, PERRL, EOMI. Absent: scleral icterus, conjunctival injection, periorbital swelling ENT exam: Present: normal exam, mucous membranes moist Neck exam: Present: normal inspection, full ROM. Absent: tenderness, meningismus, lymphadenopathy Respiratory exam: Present: normal lung sounds bilaterally. Absent: respiratory distress, wheezes, rales, rhonchi, stridor Cardiovascular Exam: Present: regular rate, normal rhythm, normal heart sounds. Absent: systolic murmur, diastolic murmur, rubs, gallop, clicks GI/Abdominal exam: Present: soft, normal bowel sounds. Absent: distended, tenderness, guarding, rebound, rigid Course Vital Signs 11/02/20 11/02/20 11/02/20 15:12 15:48 16:15 Temperature 98.7 F Pulse Rate 93 89 81 Respiratory 18 18 18 Rate Blood Pressure 117/72 108/76 100/65 O2 Sat by Pulse 97 98 98 Oximetry EKG Findings - EKG Comments: EKG Findings:: Normal sinus rhythm, ventricular rate 76, NJ interval 146, QTC 405 Medical Decision Making - Medical Decision Making Vitals are stable. Patient is well-appearing. CBC CMP unremarkable urinalysis unremarkable. Chest x-ray shows a normal chest without change. EKG nonischemic. Patient was given fluids and does feel better. At this time patient is stable for discharge home to have her outpatient echo performed miguel orrow. If she has any worsening symptoms overnight she will return to the emergency room. Mother states she will stay with her overnight to monitor her. I discussed this case with attending Dr. Bee who agrees with this assessment and treatment plan. - Lab Data Result diagrams: 11/02/20 16:33 11/02/20 16:33 Lab Results 11/02/20 11/02/20 11/02/20 Range/Units 16:33 16:33 16:33 WBC 5.6 (3.8-10.6) k/uL RBC 4.49 (3.80-5.40) m/uL Hgb 14.4 (11.4-16.0) gm/dL Hct 42.4 (34.0-46.0) % MCV 94.5 (80.0-100.0) fL MCH 32.0 (25.0-35.0) pg MCHC 33.9 (31.0-37.0) g/dL RDW 12.6 (11.5-15.5) % Plt Count 233 (150-450) k/uL MPV 7.6 Neutrophils % 73 % Lymphocytes % 17 % Monocytes % 6 % Eosinophils % 2 % Basophils % 1 % Neutrophils # 4.1 (1.3-7.7) k/uL Lymphocytes # 1.0 (1.0-4.8) k/uL Monocytes # 0.3 (0-1.0) k/uL Eosinophils # 0.1 (0-0.7) k/uL Basophils # 0.1 (0-0.2) k/uL PT 11.1 (9.0-12.0) sec INR 1.1 (<1.2) APTT 24.0 (22.0-30.0) sec Sodium 141 (137-145) mmol/L Potassium 4.5 (3.5-5.1) mmol/L Chloride 104 (98-107) mmol/L Carbon Dioxide 26 (22-30) mmol/L Anion Gap 11 mmol/L BUN 7 (7-17) mg/dL Creatinine 0.84 (0.52-1.04) mg/dL Est GFR (CKD-EPI)AfAm >90 (>60 ml/min/1.73 sqM) Est GFR (CKD-EPI)NonAf >90 (>60 ml/min/1.73 sqM) Glucose 92 (74-99) mg/dL Calcium 9.3 (8.4-10.2) mg/dL Magnesium 2.1 (1.6-2.3) mg/dL Total Bilirubin 0.4 (0.2-1.3) mg/dL AST 17 (14-36) U/L ALT 11 (4-34) U/L Alkaline Phosphatase 76 (38-126) U/L Troponin I (0.000-0.034) ng/mL Total Protein 7.4 (6.3-8.2) g/dL Albumin 4.3 (3.5-5.0) g/dL Urine Color Urine Appearance (Clear) Urine pH (5.0-8.0) Ur Specific [place] (1.001-1.035) Urine Protein (Negative) Urine Glucose (UA) (Negative) Urine Ketones (Negative) Urine Blood (Negative) Urine Nitrite (Negative) Urine Bilirubin (Negative) Urine Urobilinogen (<2.0) mg/dL Ur Leukocyte Esterase (Negative) Urine RBC (0-5) /hpf Urine WBC (0-5) /hpf Ur Squamous Epith Cells (0-4) /hpf Urine Bacteria (None) /hpf Urine HCG, Qual (Not Detectd) 11/02/20 11/02/20 11/02/20 Range/Units 16:33 16:37 16:37 WBC (3.8-10.6) k/uL RBC (3.80-5.40) m/uL Hgb (11.4-16.0) gm/dL Hct (34.0-46.0) % MCV (80.0-100.0) fL MCH (25.0-35.0) pg MCHC (31.0-37.0) g/dL RDW (11.5-15.5) % Plt Count (150-450) k/uL MPV Neutrophils % % Lymphocytes % % Monocytes % % Eosinophils % % Basophils % % Neutrophils # (1.3-7.7) k/uL Lymphocytes # (1.0-4.8) k/uL Monocytes # (0-1.0) k/uL Eosinophils # (0-0.7) k/uL Basophils # (0-0.2) k/uL PT (9.0-12.0) sec INR (<1.2) APTT (22.0-30.0) sec Sodium (137-145) mmol/L Potassium (3.5-5.1) mmol/L Chloride (98-107) mmol/L Carbon Dioxide (22-30) mmol/L Anion Gap mmol/L BUN (7-17) mg/dL Creatinine (0.52-1.04) mg/dL Est GFR (CKD-EPI)AfAm (>60 ml/min/1.73 sqM) Est GFR (CKD-EPI)NonAf (>60 ml/min/1.73 sqM) Glucose (74-99) mg/dL Calcium (8.4-10.2) mg/dL Magnesium (1.6-2.3) mg/dL Total Bilirubin (0.2-1.3) mg/dL AST (14-36) U/L ALT (4-34) U/L Alkaline Phosphatase (38-126) U/L Troponin I <0.012 (0.000-0.034) ng/mL Total Protein (6.3-8.2) g/dL Albumin (3.5-5.0) g/dL Urine Color Light Yellow Urine Appearance Cloudy H (Clear) Urine pH 7.5 (5.0-8.0) Ur Specific [place] 1.012 (1.001-1.035) Urine Protein Negative (Negative) Urine Glucose (UA) Negative (Negative) Urine Ketones Negative (Negative) Urine Blood Negative (Negative) Urine Nitrite Negative (Negative) Urine Bilirubin Negative (Negative) Urine Urobilinogen <2.0 (<2.0) mg/dL Ur Leukocyte Esterase Small H (Negative) Urine RBC <1 (0-5) /hpf Urine WBC 2 (0-5) /hpf Ur Squamous Epith Cells 9 H (0-4) /hpf Urine Bacteria Occasional H (None) /hpf Urine HCG, Qual Not Detected (Not Detectd) Disposition Clinical Impression: Syncope, Seizure disorder Disposition: HOME SELF-CARE Condition: Good Instructions (If sedation given, give patient instructions): Syncope (ED) Additional Instructions: Please follow up for your echo tomorrow as well as your doctor. Please return to the emergency room for any worsening symptoms. Is patient prescribed a controlled substance at d/c from ED?: No Referrals: Ailyn Jara MD [Primary Care Provider] - 1-2 days Time of Disposition: 18:23
[2020-11-02 17:06] LABS: Appearance,Urine Cloudy (Clear); Bacteria,Urine Occasional /hpf; Bilirubin,Urine Negative (Negative); Blood,Urine Negative (Negative); Color,Urine Light Yellow; Glucose,Urine (UA) Negative (Negative); Ketones,Urine Negative (Negative); Leukocyte Esterase,Urine Small (Negative); Nitrite,Urine Negative (Negative); PH, Urine 7.5 (5.0-8.0); Protein,Urine Negative (Negative); RBC,Urine <1 /hpf (0-5); Specific Gravity,Urine 1.012 (1.001-1.035); Squamous Epithelial Cell,Urine 9 /hpf (0-4); Urobilinogen,Urine <2.0 mg/dL (<2.0); WBC,Urine 2 /hpf (0-5)
--- NOTE | 2020-11-02 17:41 | XR ---
EXAMINATION TYPE: XR chest 2V DATE OF EXAM: 11/02/2020 COMPARISON: 08/26/2019 HISTORY: Syncope TECHNIQUE: FINDINGS: Heart and mediastinum are normal. Lungs are clear. Diaphragm is normal. There is device imp lanted over the left axilla. There is no pleural effusion. There are chest leads. IMPRESSION: Normal chest. No change.
[2020-11-02 18:31] VITALS: BP 110/72; PULSE 88
== END 2020-11-02 18:41 | disposition home or self-care (01) ==
LOC: EC 14:58
DX: G40.909 Epilepsy, unspecified, not intractable, without status epilepticus (principal); R55 Syncope and collapse; F41.9 Anxiety disorder, unspecified
CPT/HCPCS: 36415; 71046; 80053; 81001; 81025; 83735; 84484; 85025; 85610; 85730; 93005; 96360; 99284

== ENCOUNTER 2020-11-03 09:00 | Emergency (ER) | payer OTHER ==
[2020-11-03] MEDS ORDERED: SODIUM CHLORIDE 0.9% 500 ML 500 ML IV STA (09:17)
--- NOTE | 2020-11-03 09:54 | XR ---
EXAMINATION TYPE: XR chest 2V DATE OF EXAM: 11/03/2020 COMPARISON: 11/02/2020 HISTORY: 30-year-old female with syncope TECHNIQUE: PA and lateral views FINDINGS: Left-sided chest wall generator device. Leads extending up to the left base of the neck. The cardiome diastinal silhouette, aorta, and pulmonary vasculature are within normal limits. Lungs and pleural sp aces are clear. IMPRESSION: No acute cardiopulmonary process.
[2020-11-03 09:57] LABS: Glucose,Whole Blood 91 mg/dL (75-99)
[2020-11-03 09:59] LABS: Basophils % (A) 1 %; Eosinophils # (A) 0.1 k/uL (0-0.7); Eosinophils % (A) 2 %; HCT 40.1 % (34.0-46.0); HGB 13.3 gm/dL (11.4-16.0); Lymphocytes # (A) 1.2 k/uL (1.0-4.8); Lymphocytes % (A) 19 %; MCH 31.1 pg (25.0-35.0); MCHC 33.3 g/dL (31.0-37.0); MCV 93.5 fL (80.0-100.0); Mean Platelet Volume 7.5; Monocytes # (A) 0.5 k/uL (0-1.0); Monocytes % (A) 7 %; Neutrophils # (A) 4.4 k/uL (1.3-7.7); Neutrophils % (A) 70 %; Platelet Count 226 k/uL (150-450); RBC 4.29 m/uL (3.80-5.40); RDW 12.5 % (11.5-15.5); WBC 6.3 k/uL (3.8-10.6)
[2020-11-03 10:07] LABS: ALT 8 U/L (4-34); AST 16 U/L (14-36); African American GFR (CKD) >90 (>60 ml/min/1.73 sqM); Albumin 3.6 g/dL (3.5-5.0); Alkaline Phosphatase 63 U/L (38-126); Anion Gap 8 mmol/L; Blood Urea Nitrogen 8 mg/dL (7-17); Calcium 8.8 mg/dL (8.4-10.2); Carbon Dioxide 22 mmol/L (22-30); Chloride 107 mmol/L (98-107); Glucose 96 mg/dL (74-99); Magnesium 1.9 mg/dL (1.6-2.3); Non-African American GFR(CKD) >90 (>60 ml/min/1.73 sqM); Potassium 4.3 mmol/L (3.5-5.1); Sodium 137 mmol/L (137-145); Total Bilirubin 0.2 mg/dL (0.2-1.3); Total Protein 6.5 g/dL (6.3-8.2)
[2020-11-03 11:05] LABS: Amorphous Sediment,Urine Rare /hpf; Appearance,Urine Cloudy (Clear); Bacteria,Urine Moderate /hpf; Bilirubin,Urine Negative (Negative); Blood,Urine Negative (Negative); Color,Urine Light Yellow; Glucose,Urine (UA) Negative (Negative); Hyaline Casts,Urine 1 /lpf (0-2); Ketones,Urine Negative (Negative); Leukocyte Esterase,Urine Small (Negative); Mucus,Urine Rare /hpf; Nitrite,Urine Negative (Negative); PH, Urine 6.5 (5.0-8.0); Protein,Urine Negative (Negative); RBC,Urine 2 /hpf (0-5); Squamous Epithelial Cell,Urine 10 /hpf (0-4); Urobilinogen,Urine <2.0 mg/dL (<2.0); WBC,Urine 3 /hpf (0-5)
--- NOTE | 2020-11-03 11:21 | ED ---
Dizziness HPI - General Chief Complaint: Syncope Stated Complaint: syncope-revisit Time Seen by Provider: 11/03/20 09:08 Source: patient Mode of arrival: wheelchair Limitations: no limitations - History of Present Illness Initial Comments: 30-year-old female with history of syncopal episodes, history of seizure disorder with vagal stimulator left-sided chest present to the ER today for chief complaint of syncopal episode after going from sitting to standing. Patient states she was lying down for an echocardiogram secondary to cecal episode 3 weeks ago. Patient states that she felt lightheaded and her mother lowered to the ground she states she lost consciousness briefly for a few seconds. Patient mother denies any seizure-like activity patient came to full consciousness after this episode. She denies headache nausea. She states she has had discomfort of her chest constantly for months. Patient denies changes or this being new today. Patient denies jaw pain, states she has some right arm pain after falling, but states she doesnt believe anything is wrong with it. Patient denies additional complaints and concerns. Mother nad patient deny head injury. - Related Data Home Medications Medication Instructions Recorded Confirmed Perampanel [Fycompa] 8 mg PO HS 04/20/20 11/03/20 Albuterol Sulfate [Proair Hfa] 1 - 2 puff INHALATION RT-Q6H PRN 11/03/20 11/03/20 Cenobamate [Xcopri] 100 mg PO DAILY 11/03/20 11/03/20 Cenobamate [Xcopri] 200 mg PO DAILY 11/03/20 11/03/20 SUMAtriptan SUCCINATE [Imitrex] 100 mg PO DAILY PRN 11/03/20 11/03/20 Allergies Allergy/AdvReac Type Severity Reaction Status Date / Time strawberries AdvReac Rash/Hives Uncoded 11/03/20 10:10 Review of Systems ROS Statement: Those systems with pertinent positive or pertinent negative responses have been documented in the HPI. ROS Other: All systems not noted in ROS Statement are negative. Past Medical History Past Medical History: Seizure Disorder Additional Past Medical History / Comment(s): lupus History of Any Multi-Drug Resistant Organisms: None Reported Past Surgical History: No Surgical Hx Reported Additional Past Surgical History / Comment(s): Vagus nerve stimulator Past Anesthesia/Blood Transfusion Reactions: Unable to Obtain Past Psychological History: Anxiety Smoking Status: Never smoker Past Alcohol Use History: Occasional Past Drug Use History: Marijuana - Past Family History family Family Medical History: No Reported History General Exam - General Exam Comments Initial Comments: General: The patient is awake and alert, in no distress, and does not appear acutely ill. Eye: Pupils are equal, round and reactive to light, extra-ocular movements are intact. No nystagmus. There is normal conjunctiva bilaterally. No signs of icterus. Ears, nose, mouth and throat: There are moist mucous membranes and no oral lesions. Neck: The neck is supple, there is no tenderness or JVD. Cardiovascular: There is a regular rate and rhythm. No murmur, rub or gallop is appreciated. Respiratory: Lungs are clear to auscultation, respirations are non-labored, breath sounds are equal. No wheezes, stridor, rales, or rhonchi. Gastrointestinal: Soft, non-distended, non-tender abdomen without masses or organomegaly noted. There is no rebound or guarding present. No CVA tenderness. Musculoskeletal: Normal ROM, of the right shoulder, elbow and wrist without limitation, no bruising or gross deformity. Strength 5/5 of the UE b/l. Sensation intact of the UE and LE b/l. Radial and DP pulses equal bilaterally 2+. Neurological: A&O x 3. CN II-XII intact grossly, There are no obvious motor or sensory deficits. Coordination appears grossly intact. Speech is normal. Skin: Skin is warm and dry and no rashes or lesions are noted. No calf pain, no LE edema. Psychiatric: Cooperative, appropriate mood & affect, normal judgment. 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 patient orthos WNL. patient glucose 91. Patient moving shoulder without difficulty, significant pain. states she doesnt think there is much wrong but states sore since syncopal episode 3 weeks ago. patient troponin (-). Dimer high. CTA (-) for PE. patient has no had additional episode no tachycardia or bradycardia. She hydrated at this time after discussing case with Dr. Brown that patient is stable for discharge with PCP f/u and cardiology f/u in the next 1-2 days. ECHO done today no significant abnormality. Incidental findings discussed with patient/mom who is agreeable and aware of importance of f/u. - Lab Data Result diagrams: 11/03/20 09:39 11/03/20 09:39 Lab Results 11/03/20 11/03/20 11/03/20 Range/Units 09:39 09:39 09:39 WBC 6.3 (3.8-10.6) k/uL RBC 4.29 (3.80-5.40) m/uL Hgb 13.3 (11.4-16.0) gm/dL Hct 40.1 (34.0-46.0) % MCV 93.5 (80.0-100.0) fL MCH 31.1 (25.0-35.0) pg MCHC 33.3 (31.0-37.0) g/dL RDW 12.5 (11.5-15.5) % Plt Count 226 (150-450) k/uL MPV 7.5 Neutrophils % 70 % Lymphocytes % 19 % Monocytes % 7 % Eosinophils % 2 % Basophils % 1 % Neutrophils # 4.4 (1.3-7.7) k/uL Lymphocytes # 1.2 (1.0-4.8) k/uL Monocytes # 0.5 (0-1.0) k/uL Eosinophils # 0.1 (0-0.7) k/uL Basophils # 0.0 (0-0.2) k/uL PT (9.0-12.0) sec INR (<1.2) APTT (22.0-30.0) sec D-Dimer (<0.60) mg/L FEU Sodium 137 (137-145) mmol/L Potassium 4.3 (3.5-5.1) mmol/L Chloride 107 (98-107) mmol/L Carbon Dioxide 22 (22-30) mmol/L Anion Gap 8 mmol/L BUN 8 (7-17) mg/dL Creatinine 0.66 (0.52-1.04) mg/dL Est GFR (CKD-EPI)AfAm >90 (>60 ml/min/1.73 sqM) Est GFR (CKD-EPI)NonAf >90 (>60 ml/min/1.73 sqM) Glucose 96 (74-99) mg/dL POC Glucose (mg/dL) (75-99) mg/dL POC Glu In House Counsel ID Calcium 8.8 (8.4-10.2) mg/dL Magnesium 1.9 (1.6-2.3) mg/dL Total Bilirubin 0.2 (0.2-1.3) mg/dL AST 16 (14-36) U/L ALT 8 (4-34) U/L Alkaline Phosphatase 63 (38-126) U/L Troponin I <0.012 (0.000-0.034) ng/mL NT-Pro-B Natriuret Pep pg/mL Total Protein 6.5 (6.3-8.2) g/dL Albumin 3.6 (3.5-5.0) g/dL Urine Color Urine Appearance (Clear) Urine pH (5.0-8.0) Ur Specific [place] (1.001-1.035) Urine Protein (Negative) Urine Glucose (UA) (Negative) Urine Ketones (Negative) Urine Blood (Negative) Urine Nitrite (Negative) Urine Bilirubin (Negative) Urine Urobilinogen (<2.0) mg/dL Ur Leukocyte Esterase (Negative) Urine RBC (0-5) /hpf Urine WBC (0-5) /hpf Ur Squamous Epith Cells (0-4) /hpf Amorphous Sediment (None) /hpf Urine Bacteria (None) /hpf Hyaline Casts (0-2) /lpf Urine Mucus (None) /hpf Urine HCG, Qual (Not Detectd) 11/03/20 11/03/20 11/03/20 Range/Units 09:39 09:56 10:47 WBC (3.8-10.6) k/uL RBC (3.80-5.40) m/uL Hgb (11.4-16.0) gm/dL Hct (34.0-46.0) % MCV (80.0-100.0) fL MCH (25.0-35.0) pg MCHC (31.0-37.0) g/dL RDW (11.5-15.5) % Plt Count (150-450) k/uL MPV Neutrophils % % Lymphocytes % % Monocytes % % Eosinophils % % Basophils % % Neutrophils # (1.3-7.7) k/uL Lymphocytes # (1.0-4.8) k/uL Monocytes # (0-1.0) k/uL Eosinophils # (0-0.7) k/uL Basophils # (0-0.2) k/uL PT 10.4 (9.0-12.0) sec INR 1.0 (<1.2) APTT 22.0 (22.0-30.0) sec D-Dimer 1.34 H (<0.60) mg/L FEU Sodium (137-145) mmol/L Potassium (3.5-5.1) mmol/L Chloride (98-107) mmol/L Carbon Dioxide (22-30) mmol/L Anion Gap mmol/L BUN (7-17) mg/dL Creatinine (0.52-1.04) mg/dL Est GFR (CKD-EPI)AfAm (>60 ml/min/1.73 sqM) Est GFR (CKD-EPI)NonAf (>60 ml/min/1.73 sqM) Glucose (74-99) mg/dL POC Glucose (mg/dL) 91 (75-99) mg/dL POC Glu In House Counsel ID Jazlyn Chauhan Calcium (8.4-10.2) mg/dL Magnesium (1.6-2.3) mg/dL Total Bilirubin (0.2-1.3) mg/dL AST (14-36) U/L ALT (4-34) U/L Alkaline Phosphatase (38-126) U/L Troponin I (0.000-0.034) ng/mL NT-Pro-B Natriuret Pep 75 pg/mL Total Protein (6.3-8.2) g/dL Albumin (3.5-5.0) g/dL Urine Color Urine Appearance (Clear) Urine pH (5.0-8.0) Ur Specific [place] (1.001-1.035) Urine Protein (Negative) Urine Glucose (UA) (Negative) Urine Ketones (Negative) Urine Blood (Negative) Urine Nitrite (Negative) Urine Bilirubin (Negative) Urine Urobilinogen (<2.0) mg/dL Ur Leukocyte Esterase (Negative) Urine RBC (0-5) /hpf Urine WBC (0-5) /hpf Ur Squamous Epith Cells (0-4) /hpf Amorphous Sediment (None) /hpf Urine Bacteria (None) /hpf Hyaline Casts (0-2) /lpf Urine Mucus (None) /hpf Urine HCG, Qual (Not Detectd) 11/03/20 11/03/20 Range/Units 10:56 10:56 WBC (3.8-10.6) k/uL RBC (3.80-5.40) m/uL Hgb (11.4-16.0) gm/dL Hct (34.0-46.0) % MCV (80.0-100.0) fL MCH (25.0-35.0) pg MCHC (31.0-37.0) g/dL RDW (11.5-15.5) % Plt Count (150-450) k/uL MPV Neutrophils % % Lymphocytes % % Monocytes % % Eosinophils % % Basophils % % Neutrophils # (1.3-7.7) k/uL Lymphocytes # (1.0-4.8) k/uL Monocytes # (0-1.0) k/uL Eosinophils # (0-0.7) k/uL Basophils # (0-0.2) k/uL PT (9.0-12.0) sec INR (<1.2) APTT (22.0-30.0) sec D-Dimer (<0.60) mg/L FEU Sodium (137-145) mmol/L Potassium (3.5-5.1) mmol/L Chloride (98-107) mmol/L Carbon Dioxide (22-30) mmol/L Anion Gap mmol/L BUN (7-17) mg/dL Creatinine (0.52-1.04) mg/dL Est GFR (CKD-EPI)AfAm (>60 ml/min/1.73 sqM) Est GFR (CKD-EPI)NonAf (>60 ml/min/1.73 sqM) Glucose (74-99) mg/dL POC Glucose (mg/dL) (75-99) mg/dL POC Glu In House Counsel ID Calcium (8.4-10.2) mg/dL Magnesium (1.6-2.3) mg/dL Total Bilirubin (0.2-1.3) mg/dL AST (14-36) U/L ALT (4-34) U/L Alkaline Phosphatase (38-126) U/L Troponin I (0.000-0.034) ng/mL NT-Pro-B Natriuret Pep pg/mL Total Protein (6.3-8.2) g/dL Albumin (3.5-5.0) g/dL Urine Color Light Yellow Urine Appearance Cloudy H (Clear) Urine pH 6.5 (5.0-8.0) Ur Specific [place] 1.010 (1.001-1.035) Urine Protein Negative (Negative) Urine Glucose (UA) Negative (Negative) Urine Ketones Negative (Negative) Urine Blood Negative (Negative) Urine Nitrite Negative (Negative) Urine Bilirubin Negative (Negative) Urine Urobilinogen <2.0 (<2.0) mg/dL Ur Leukocyte Esterase Small H (Negative) Urine RBC 2 (0-5) /hpf Urine WBC 3 (0-5) /hpf Ur Squamous Epith Cells 10 H (0-4) /hpf Amorphous Sediment Rare H (None) /hpf Urine Bacteria Moderate H (None) /hpf Hyaline Casts 1 (0-2) /lpf Urine Mucus Rare H (None) /hpf Urine HCG, Qual Not Detected (Not Detectd) Disposition Clinical Impression: Syncope, Cyst, mediastinum Disposition: HOME SELF-CARE Condition: Good Instructions (If sedation given, give patient instructions): Syncope (ED) Additional Instructions: Please use medication as discussed. Please follow-up with family doctor in the next 2 days-request CT records to ensure no thyoma, as well as cardiology as scheduled Please return to emergency room if the symptoms increase or worsen or for any other concerns. Is patient prescribed a controlled substance at d/c from ED?: No Referrals: Ailyn Jara MD [Primary Care Provider] - 1-2 days Time of Disposition: 11:27
[2020-11-03 11:23] LABS: Prothrombin Time 10.4 sec (9.0-12.0)
[2020-11-03 11:29] LABS: D-Dimer 1.34 mg/L FEU (<0.60)
--- NOTE | 2020-11-03 12:17 | CT ---
EXAMINATION TYPE: CT chest angio for PE DATE OF EXAM: 11/03/2020 COMPARISON: Radiograph same day HISTORY: 30-year-old female Elevated D-dimer, Syncope TECHNIQUE: Contiguous axial scanning of the chest performed with IV Contrast, patient injected with 1 00 mL of Isovue 370. Coronal/sagittal MIP reconstructions performed. CT DLP: 380 mGycm Automated exposure control for dose reduction was used. FINDINGS: Left anterior chest wall generator device. Heart normal size without pericardial effusion. No flattening of the interventricular septum or reflu x of contrast into the hepatic veins. Aorta normal caliber with conventional arch vessel branching anatomy. No thoracic lymphadenopathy by CT size criteria. There is nodular soft tissue along the anterior aspect of the superior mediastinum/prevascular space measuring 1.7 cm. Cyst inferiorly, residual thymic tissue is noted. Satisfactory opacification of the pulmonary arterial system without evidence for pulmonary embolus. Tiny nonspecific air cyst superior segment left lower lobe, axial image 75 suggest possible minimal e mphysematous change. No consolidation or pleural effusion. Visualized upper abdomen shows a anterior splenule. Bones: No osseous destructive process. Small endplate Schmorl's nodes mid to lower thoracic spine. IMPRESSION: 1. NO EVIDENCE FOR PULMONARY EMBOLUS. 2. TINY AIR CYST ON THE LEFT IS NONSPECIFIC. IF THERE IS A SMOKING HISTORY, THIS COULD REFLECT EARLY EMPHYSEMA. 3. NODULAR 1.7 CM SOFT TISSUE IN THE SUPERIOR PREVASCULAR SPACE OF THE MEDIASTINUM. IF MRI CAN BE PER FORMED, 3 - 6 MONTH FOLLOW-UP MRI WITHOUT AND WITH CONTRAST CAN REASSESS. IF PATIENT CANNOT HAVE MRI DUE TO THE GENERATOR DEVICE, 6 - 12 MONTH FOLLOW-UP CT CAN REASSESS FOR POSSIBLE THYMOMA VERSUS RESID UAL THYMIC TISSUE.
[2020-11-03 12:35] VITALS: BP 97/80; PULSE 18; RESP 70; TEMP 98
== END 2020-11-03 12:31 | disposition home or self-care (01) ==
LOC: EC 09:00
DX: R55 Syncope and collapse (principal); J98.59 Other diseases of mediastinum, not elsewhere classified; J98.4 Other disorders of lung; G40.909 Epilepsy, unspecified, not intractable, without status epilepticus
CPT/HCPCS: 36415; 93005; 85379; 83880; 80053; 83735; 84484; 85025; 85610; 85730; 81001; 81025; 71046; 71275; 99284; Q9967

== ENCOUNTER → 2020-11-03 | Outpatient (CLI) | payer OTHER ==
--- NOTE | 2020-11-03 10:55 | ECHOF ---
Referral Reason:syncope MEASUREMENTS -------- HEIGHT: 175.3 cm WEIGHT: 90.7 kg BP: IVSd: 0.8 cm (0.6 - 1.1) LVIDd: 5.0 cm (3.9 - 5.3) LVPWd: 0.9 cm (0.6 - 1.1) IVSs: 1.2 cm LVIDs: 3.6 cm LVPWs: 1.4 cm LAESV Index (A-L): 17.51 ml/m Ao Diam: 2.8 cm (2.0 - 3.7) AV Cusp: 1.9 cm (1.5 - 2.6) LA Diam: 2.7 cm (2.7 - 3.8) MV EXCURSION: 22.842 mm (> 18.000) MV EF SLOPE: 200 mm/s (70 - 150) EPSS: 1.1 cm MV E Greg: 0.94 m/s MV DecT: 170 ms MV A Greg: 0.64 m/s MV E/A Ratio: 1.46 RAP: 5.00 mmHg RVSP: 18.61 mmHg FINDINGS -------- This was a technically good study. The left ventricular size is normal. Left ventricular wall thickness is normal. Overall left vent ricular systolic function is low-normal with, an EF between 50 - 55 %. The diastolic filling patter n is normal for the age of the patient 9.86. The right ventricle is normal in size. The left atrial size is normal. Normal LA size by volume 22+/-6 ml/m2. The right atrial size is normal. Interatrial and interventricular septum intact. The aortic valve is trileaflet and appears structurally normal. The mitral valve is normal. There is trace mitral regurgitation. The tricuspid valve appears structurally normal. Trace tricuspid regurgitation present. Right jennifer tricular systolic pressure is normal at < 35 mmHg. There is no pulmonic regurgitation present. The aortic root size is normal. Normal inferior vena cava with normal inspiratory collapse consistent with estimated right atrial pre ssure of 5 mmHg. There is no pericardial effusion. CONCLUSIONS -------- 1. The left ventricular size is normal. 2. Left ventricular wall thickness is normal. 3. Overall left ventricular systolic function is low-normal with, an EF between 50 - 55 %. 4. The diastolic filling pattern is normal for the age of the patient 9.86 5. There is trace mitral regurgitation. 6. Trace tricuspid regurgitation present. 7. There is no pericardial effusion. [employer]: Brandie Nguyen RDCS
== END | disposition home or self-care (01) ==
LOC: RADECHMAIN 08:25
PROVIDERS: ATTEND Internal Medicine
DX: R55 Syncope and collapse (principal)
CPT/HCPCS: 93306

== ENCOUNTER 2020-12-20 17:25 | Emergency (ER) | payer OTHER ==
[2020-12-20 17:35] VITALS: BP 144/80; PULSE 89; RESP 18; TEMP 98.4
[2020-12-20] MEDS ORDERED: BACITRACIN OINT 1 EACH PACKET TOPICAL ONE (18:04)
[2020-12-20] MEDS ORDERED: AMOXIC-POT CLAV 875MG STARTER PACK 2 TAB BTL PO STA (18:05)
[2020-12-20] MEDS ORDERED: RABIES IMMUNE GLOB 300 UNIT/ML 1 ML VIAL IM ONE (18:05)
[2020-12-20] MEDS ORDERED: RABIES VACCINE (PCEC) 2.5 UNIT KIT IM ONE (18:08)
--- NOTE | 2020-12-20 18:24 | XR ---
EXAMINATION TYPE: XR hand complete bilateral DATE OF EXAM: 12/20/2020 COMPARISON: NONE HISTORY: Dogbite. Pain. TECHNIQUE: 3 views each hand FINDINGS: Metacarpals are intact. I see no fracture nor dislocation. Joint spaces are normal. There i s no sign of a foreign body. There are no erosions. IMPRESSION: Negative bilateral hand exam. No fracture.
[2020-12-20] MEDS ORDERED: RABIES IMMUNE GLOB 300 UNIT/ML 5 ML VIAL IM ONE (18:45)
--- NOTE | 2020-12-20 19:06 | ED ---
Animal Bite HPI - General Source: patient Mode of arrival: ambulatory Limitations: no limitations <Anam Cabrera - Last Filed: 12/20/20 19:28> <Patricia Slater - Last Filed: 12/22/20 02:00> - General Chief Complaint: Animal Bite Stated Complaint: dog bite/both hands Time Seen by Provider: 12/20/20 17:45 - History of Present Illness Initial Comments: 30-year-old female presents to emergency Department with a chief complaint of a dog bite. States this occurred about one hour prior to arrival. Patient reports she was playing with a pimple when it bit both of her hands. Patient reports several puncture wounds on her right hand and mostly her left fingers. Patient reports pain at the site of injury. Denies any blood thinners. Tetanus is up-to-date. Denies any numbness or tingling. Reports full range of motion of the fingers and hands. (Anam Cabrera) - Related Data Home Medications Medication Instructions Recorded Confirmed Perampanel [Fycompa] 8 mg PO DAILY 04/20/20 12/20/20 Cenobamate [Xcopri] 100 mg PO DAILY 11/03/20 12/20/20 Cenobamate [Xcopri] 200 mg PO DAILY 11/03/20 12/20/20 SUMAtriptan SUCCINATE [Imitrex] 100 mg PO DAILY PRN 11/03/20 12/20/20 Zonisamide [Zonegran] 400 mg PO DAILY 12/20/20 12/20/20 Previous Rx's Medication Instructions Recorded Amoxicillin/Potassium Clav 1 tab PO Q12HR #20 tab 12/20/20 [Augmentin 875-125 Tablet] Allergies Allergy/AdvReac Type Severity Reaction Status Date / Time strawberries AdvReac Rash/Hives Uncoded 12/20/20 19:03 Review of Systems ROS Other: All systems not noted in ROS Statement are negative. <Anam Cabrera - Last Filed: 12/20/20 19:28> ROS Other: All systems not noted in ROS Statement are negative. <Patricia Slater - Last Filed: 12/22/20 02:00> ROS Statement: Those systems with pertinent positive or pertinent negative responses have been documented in the HPI. Past Medical History Past Medical History: Seizure Disorder Additional Past Medical History / Comment(s): lupus History of Any Multi-Drug Resistant Organisms: None Reported Past Surgical History: No Surgical Hx Reported Additional Past Surgical History / Comment(s): Vagus nerve stimulator Past Anesthesia/Blood Transfusion Reactions: Unable to Obtain Past Psychological History: Anxiety Smoking Status: Never smoker Past Alcohol Use History: Occasional Past Drug Use History: Marijuana - Past Family History family Family Medical History: No Reported History <Anam Cabrera - Last Filed: 12/20/20 19:28> General Exam Limitations: no limitations General appearance: alert, in no apparent distress Head exam: Present: atraumatic, normocephalic, normal inspection Eye exam: Present: normal appearance, PERRL, EOMI Pupils: Present: normal accommodation ENT exam: Present: normal exam, normal oropharynx, mucous membranes moist Neck exam: Present: normal inspection, full ROM. Absent: tenderness, lymphadenopathy Respiratory exam: Present: normal lung sounds bilaterally. Absent: respiratory distress, wheezes, rales Cardiovascular Exam: Present: regular rate, normal rhythm, normal heart sounds. Absent: systolic murmur, diastolic murmur GI/Abdominal exam: Present: soft. Absent: distended, tenderness, rebound Extremities exam: Present: normal inspection (Multiple bite kemp on bilateral hands.), full ROM, tenderness (Tenderness at the bite kemp sites.), normal capillary refill, other (Palpable ulnar and radial pulses bilaterally. Sensation intact). Absent: pedal edema, joint swelling, calf tenderness Back exam: Present: normal inspection, full ROM. Absent: tenderness, CVA tenderness (R), CVA tenderness (L) Neurological exam: Present: alert, oriented X3 Psychiatric exam: Present: normal affect, normal mood Skin exam: Present: warm, dry, intact <Anam Cabrera - Last Filed: 12/20/20 19:28> Course Vital Signs 12/20/20 17:31 Temperature 98.4 F Pulse Rate 89 Respiratory 18 Rate Blood Pressure 144/80 O2 Sat by Pulse 98 Oximetry Medical Decision Making <Anam Cabrera - Last Filed: 12/20/20 19:28> <Patricia Slater - Last Filed: 12/22/20 02:00> - Medical Decision Making 30-year-old male presents to the emergency department with a chief complaint of a dog bite. Wounds were thoroughly irrigated with normal saline and Betadine. Wounds were covered with dressings. Patient was started on Augmentin. Will be discharged with 10 day course of Augmentin. She was also given immunoglobulin for rabies prophylaxis. Patient was also given a prescription for rabies vaccine on day 3/7/14 and 28. X-rays are negative for any acute fractures, dislocations or foreign bodies. Case discussed with (Anam Cabrera) I was available for consultation in the emergency department. The history and physical exam were done by the midlevel provider. I was consulted for this patients care. I reviewed the case with the midlevel provider and based on their presentation of the patient, I agree with the assessment, medical decision making and plan of care as documented. Chart was dictated using [employer] dictation software. Attempts were made to correct any dictation errors however some typographical errors may persist. Patient was seen during a national state of emergency due to the Covid-19 pandemic. (Patricia Slater) Disposition Is patient prescribed a controlled substance at d/c from ED?: No Time of Disposition: 19:28 <Anam Cabrera - Last Filed: 12/20/20 19:28> <Patricia Slater - Last Filed: 12/22/20 02:00> Clinical Impression: Dog bite, Bite by animal Disposition: HOME SELF-CARE Instructions (If sedation given, give patient instructions): Animal Bite (ED) Additional Instructions: Please return to the Emergency Department if symptoms worsen or any other concerns. Prescriptions: Amoxicillin/Potassium Clav [Augmentin 875-125 Tablet] 1 tab PO Q12HR #20 tab Referrals: Ailyn Jara MD [Primary Care Provider] - 1-2 days
== END 2020-12-20 19:40 | disposition home or self-care (01) ==
LOC: EC 17:25
DX: S61.452A Open bite of left hand, initial encounter (principal); S61.451A Open bite of right hand, initial encounter; G40.909 Epilepsy, unspecified, not intractable, without status epilepticus; Z79.899 Other long term (current) drug therapy; Z91.018 Allergy to other foods; W54.0XXA Bitten by dog, initial encounter
CPT/HCPCS: 90375; 90471; 90675; 96372; 99283

== ENCOUNTER → 2020-12-23 | Outpatient (CLI) | payer OTHER | LOC: PEDOP 13:22 | PROVIDERS: ATTEND Internal Medicine | DX: Z23 Encounter for immunization (principal); W54.0XXA Bitten by dog, initial encounter ==

== ENCOUNTER 2021-01-04 20:45 | Emergency (ER) | payer OTHER ==
[2021-01-04 20:53] VITALS: RESP 18; TEMP 98
[2021-01-04] MEDS ORDERED: LORazepam 2 MG/ML INJ IV STA (20:55)
[2021-01-04 21:11] LABS: Basophils % (A) 1 %; Eosinophils # (A) 0.1 k/uL (0-0.7); Eosinophils % (A) 1 %; HCT 39.1 % (34.0-46.0); HGB 12.8 gm/dL (11.4-16.0); Lymphocytes # (A) 1.1 k/uL (1.0-4.8); Lymphocytes % (A) 26 %; MCH 30.5 pg (25.0-35.0); MCHC 32.7 g/dL (31.0-37.0); MCV 93.2 fL (80.0-100.0); Mean Platelet Volume 7.9; Monocytes # (A) 0.3 k/uL (0-1.0); Monocytes % (A) 7 %; Neutrophils # (A) 2.7 k/uL (1.3-7.7); Neutrophils % (A) 63 %; Platelet Count 196 k/uL (150-450); RDW 12.6 % (11.5-15.5); WBC 4.2 k/uL (3.8-10.6)
[2021-01-04 21:18] LABS: ALT 9 U/L (4-34); AST 19 U/L (14-36); African American GFR (CKD) >90 (>60 ml/min/1.73 sqM); Albumin 3.7 g/dL (3.5-5.0); Alcohol <10 mg/dL; Alkaline Phosphatase 62 U/L (38-126); Anion Gap 5 mmol/L; Blood Urea Nitrogen 5 mg/dL (7-17); Calcium 8.9 mg/dL (8.4-10.2); Carbon Dioxide 27 mmol/L (22-30); Chloride 106 mmol/L (98-107); Creatine Kinase 56 U/L (30-135); Glucose 87 mg/dL (74-99); Non-African American GFR(CKD) >90 (>60 ml/min/1.73 sqM); Potassium 3.8 mmol/L (3.5-5.1); Sodium 138 mmol/L (137-145); Total Bilirubin 0.1 mg/dL (0.2-1.3); Total Protein 6.3 g/dL (6.3-8.2)
--- NOTE | 2021-01-04 21:58 | CT ---
EXAMINATION TYPE: CT brain cspine wo con DATE OF EXAM: 01/04/2021 COMPARISON: 09/23/2020. HISTORY: Seizure CT DLP: 1499.4 mGycm Automated exposure control for dose reduction was used. TECHNIQUE: CT scan of the head and cervical spine are performed without contrast. FINDINGS: There is no acute intracranial hemorrhage, mass effect, or midline shift identified. The ventricles and sulci are within normal limits in size. The globes are intact and the visualized sin uses are clear. There is chronic moderate opacification of the right mastoid air cells. Cervical spine is visualized in its entirety from C1 through upper thoracic levels and demonstrates s atisfactory alignment without evidence of acute fracture or dislocation. Prevertebral soft tissue ap pears within normal limits. The C1-C2 articulation is unremarkable. IMPRESSION: 1. There is no acute fracture or dislocation evident in the cervical spine. 2. No acute intracranial hemorrhage, mass effect, or midline shift is seen.
--- NOTE | 2021-01-04 22:42 | ED ---
Seizure HPI - General Chief Complaint: Seizure Stated Complaint: seizure Time Seen by Provider: 01/04/21 20:50 Source: EMS Mode of arrival: EMS Limitations: no limitations - History of Present Illness Initial Comments: 30-year-old female with past medical history of seizure disorder who presents emergency department with reported seizure. The patient was at work when she began having seizure. Fell backwards and hit the back of her head. EMS was theodora led to her work. They did give her 10 mg of Versed, 4 mg of Zofran. She was able to arouse and answer questions and then had a second seizure coming into the trauma bay. The patient does have a VNS which is at the end of its battery charge. She follows with Dr. Downs out of [facility]. Patient does have an upcoming appointment. She states that she has been taking her medications as directed without any missed doses. No concern for . Patient's last seizure was last week. No headaches or visual changes at this time. No other alleviating, tube backer modifying factors - Related Data Home Medications Medication Instructions Recorded Confirmed Perampanel [Fycompa] 8 mg PO DAILY 04/20/20 01/04/21 Cenobamate [Xcopri] 200 mg PO DAILY 11/03/20 01/04/21 SUMAtriptan SUCCINATE [Imitrex] 100 mg PO DAILY PRN 11/03/20 01/04/21 Zonisamide [Zonegran] 400 mg PO DAILY 12/20/20 01/04/21 Valtoco 20mg/2 Sprays 10 mg NASAL DAILY PRN 01/04/21 01/04/21 Allergies Allergy/AdvReac Type Severity Reaction Status Date / Time strawberries AdvReac Rash/Hives Uncoded 01/04/21 22:04 Review of Systems ROS Statement: Those systems with pertinent positive or pertinent negative responses have been documented in the HPI. ROS Other: All systems not noted in ROS Statement are negative. Past Medical History Past Medical History: Seizure Disorder Additional Past Medical History / Comment(s): lupus History of Any Multi-Drug Resistant Organisms: None Reported Past Surgical History: No Surgical Hx Reported Additional Past Surgical History / Comment(s): Vagus nerve stimulator Past Anesthesia/Blood Transfusion Reactions: Unable to Obtain Past Psychological History: Anxiety Smoking Status: Never smoker Past Alcohol Use History: Occasional Past Drug Use History: Marijuana - Past Family History family Family Medical History: No Reported History General Exam Limitations: altered mental status General appearance: obtunded Head exam: Present: atraumatic, normocephalic, normal inspection Eye exam: Present: normal appearance, PERRL, EOMI. Absent: scleral icterus, conjunctival injection, periorbital swelling ENT exam: Present: normal exam, mucous membranes moist Respiratory exam: Present: normal lung sounds bilaterally. Absent: respiratory distress, wheezes, rales, rhonchi, stridor Cardiovascular Exam: Present: normal rhythm, tachycardia, normal heart sounds. Absent: systolic murmur, diastolic murmur, rubs, gallop, clicks GI/Abdominal exam: Present: soft, normal bowel sounds. Absent: distended, tend erness, guarding, rebound, rigid Neurological exam: Present: altered Course Vital Signs 01/04/21 01/04/21 01/04/21 20:49 20:56 23:11 Temperature 98 F Pulse Rate 102 H 92 69 Respiratory 18 18 18 Rate Blood Pressure 133/122 109/74 101/64 O2 Sat by Pulse 98 98 99 Oximetry Medical Decision Making - Medical Decision Making Upon arrival patient is placed in a trauma 1. A thorough history and physical exam was performed. Patient does have some seizure-like activity upon arrival into the trauma bay and therefore she is given 1 mg of Ativan. Patient does have discontinuation of the seizure-like activity almost immediately, even previously before the Ativan is given. She does awake and is acutely able to answer questions. Post ictal phase. Patient did not have any incontinence. There was no tongue biting. I did recommend laboratory studies and a CT of her brain that she did fall and sustained head injury. Patient agreed to this. Laboratory studies are reviewed and are normal. CT of the brain and cervical spine demonstrate no acute fracture dislocation. No acute edge could not hemorrhage mass effect or midline shift. Patient is observed for several hours and has no further seizure-like activity. Mother is at bedside. I did discuss the diagnosis and treatment options. At this time the patient will be discharged home and is to follow-up with her neurologist. Did recommend that they called the morning for possible medication changes versus scheduling an appointment for battery change in her VNS. Mother and patient agreed to this. Patient given a work note. Discharge home in stable condition - Lab Data Result diagrams: 01/04/21 20:59 01/04/21 20:59 Lab Results 01/04/21 01/04/21 01/04/21 Range/Units 20:59 20:59 20:59 WBC 4.2 (3.8-10.6) k/uL RBC 4.20 (3.80-5.40) m/uL Hgb 12.8 (11.4-16.0) gm/dL Hct 39.1 (34.0-46.0) % MCV 93.2 (80.0-100.0) fL MCH 30.5 (25.0-35.0) pg MCHC 32.7 (31.0-37.0) g/dL RDW 12.6 (11.5-15.5) % Plt Count 196 (150-450) k/uL MPV 7.9 Neutrophils % 63 % Lymphocytes % 26 % Monocytes % 7 % Eosinophils % 1 % Basophils % 1 % Neutrophils # 2.7 (1.3-7.7) k/uL Lymphocytes # 1.1 (1.0-4.8) k/uL Monocytes # 0.3 (0-1.0) k/uL Eosinophils # 0.1 (0-0.7) k/uL Basophils # 0.0 (0-0.2) k/uL Sodium 138 (137-145) mmol/L Potassium 3.8 (3.5-5.1) mmol/L Chloride 106 (98-107) mmol/L Carbon Dioxide 27 (22-30) mmol/L Anion Gap 5 mmol/L BUN 5 L (7-17) mg/dL Creatinine 0.68 (0.52-1.04) mg/dL Est GFR (CKD-EPI)AfAm >90 (>60 ml/min/1.73 sqM) Est GFR (CKD-EPI)NonAf >90 (>60 ml/min/1.73 sqM) Glucose 87 (74-99) mg/dL Plasma Lactic Acid Josef 1.2 (0.7-2.0) mmol/L Calcium 8.9 (8.4-10.2) mg/dL Total Bilirubin 0.1 L (0.2-1.3) mg/dL AST 19 (14-36) U/L ALT 9 (4-34) U/L Alkaline Phosphatase 62 (38-126) U/L Creatine Kinase 56 (30-135) U/L Total Protein 6.3 (6.3-8.2) g/dL Albumin 3.7 (3.5-5.0) g/dL Serum Alcohol <10 mg/dL - EKG Data EKG Comments: EKG demonstrates normal sinus rhythm with a ventricular rate of 67. [place] interval 164. QRS 86. QTC 441. No acute ST segment elevations or depressions Disposition Clinical Impression: Breakthrough seizure Disposition: HOME SELF-CARE Condition: Stable Instructions (If sedation given, give patient instructions): Recurrent Seizures in Adults (ED) Additional Instructions: Please call your neurologist in the morning to discuss medication changes and VNS battery change. Return to the ED for any new or worsening symptoms. Is patient prescribed a controlled substance at d/c from ED?: No Referrals: Ailyn Jara MD [Primary Care Provider] - 1-2 days Time of Disposition: 22:42
[2021-01-04 23:12] VITALS: BP 101/64; PULSE 69
== END 2021-01-04 23:12 | disposition home or self-care (01) ==
LOC: EC 20:45
DX: G40.909 Epilepsy, unspecified, not intractable, without status epilepticus (principal)
CPT/HCPCS: 99284; 36415; 93005; 80053; 82550; 83605; 85025; 72125; 70450; G0480; J2060; 80320

== ENCOUNTER 2021-01-08 20:14 | Observation (INO) | payer OTHER ==
[2021-01-08] MEDS ORDERED: SODIUM CHLORIDE 0.9% 1,000 ML IV STA (20:57)
[2021-01-08 21:18] LABS: Basophils % (A) 0 %; Eosinophils # (A) 0.1 k/uL (0-0.7); Eosinophils % (A) 1 %; HCT 39.5 % (34.0-46.0); HGB 13.7 gm/dL (11.4-16.0); Lymphocytes # (A) 0.9 k/uL (1.0-4.8); Lymphocytes % (A) 10 %; MCH 32.3 pg (25.0-35.0); MCHC 34.7 g/dL (31.0-37.0); Monocytes # (A) 0.5 k/uL (0-1.0); Monocytes % (A) 6 %; Neutrophils # (A) 7.4 k/uL (1.3-7.7); Neutrophils % (A) 83 %; Platelet Count 193 k/uL (150-450); RBC 4.24 m/uL (3.80-5.40); RDW 12.3 % (11.5-15.5)
[2021-01-08 21:22] LABS: ALT 11 U/L (4-34); AST 21 U/L (14-36); African American GFR (CKD) >90 (>60 ml/min/1.73 sqM); Albumin 3.8 g/dL (3.5-5.0); Alkaline Phosphatase 59 U/L (38-126); Anion Gap 7 mmol/L; Blood Urea Nitrogen 5 mg/dL (7-17); Calcium 9.1 mg/dL (8.4-10.2); Carbon Dioxide 25 mmol/L (22-30); Chloride 107 mmol/L (98-107); Glucose 90 mg/dL (74-99); Non-African American GFR(CKD) >90 (>60 ml/min/1.73 sqM); Potassium 4.2 mmol/L (3.5-5.1); Sodium 139 mmol/L (137-145); Total Bilirubin 0.4 mg/dL (0.2-1.3); Total Protein 6.6 g/dL (6.3-8.2)
--- NOTE | 2021-01-08 22:23 | ED ---
Seizure HPI - General Chief Complaint: Seizure Stated Complaint: Seizures Time Seen by Provider: 01/08/21 20:20 Source: EMS Mode of arrival: EMS - History of Present Illness Initial Comments: Becki is a 30yo female with a past history of seizure disorder who presents the ER today via ambulance again for evaluation of seizures. Patient was seen and evaluated for this earlier in the week. Patient She follows with Dr. Downs out of [facility]. Patient does have an [facility] [place] [place] [facility] appointment. She states that she has been taking her medications as directed without any missed doses. - Related Data Home Medications Medication Instructions Recorded Confirmed Perampanel [Fycompa] 8 mg PO DAILY 04/20/20 01/08/21 Cenobamate [Xcopri] 200 mg PO DAILY 11/03/20 01/08/21 SUMAtriptan SUCCINATE [Imitrex] 100 mg PO DAILY PRN 11/03/20 01/08/21 Zonisamide [Zonegran] 400 mg PO DAILY 12/20/20 01/08/21 Valtoco 20mg/2 Sprays 10 mg NASAL DAILY PRN 01/04/21 01/08/21 Allergies Allergy/AdvReac Type Severity Reaction Status Date / Time strawberries AdvReac Rash/Hives Uncoded 01/08/21 22:15 Review of Systems ROS Statement: Those systems with pertinent positive or pertinent negative responses have been documented in the HPI. ROS Other: All systems not noted in ROS Statement are negative. Past Medical History Past Medical History: Seizure Disorder Additional Past Medical History / Comment(s): lupus History of Any Multi-Drug Resistant Organisms: None Reported Past Surgical History: No Surgical Hx Reported Additional Past Surgical History / Comment(s): Vagus nerve stimulator Past Anesthesia/Blood Transfusion Reactions: Unable to Obtain Past Psychological History: Anxiety Smoking Status: Never smoker Past Alcohol Use History: Occasional Past Drug Use History: Marijuana - Past Family History family Family Medical History: No Reported History General Exam - General Exam Comments Initial Comments: Physical Exam GENERAL: Patient is well-developed and well-nourished. Patient is nontoxic and well-hydrated and is in no distress. HENT: Normocephalic, Atraumatic. EYES: PERRL, EOMI PULMONARY: Unlabored respirations. CARDIOVASCULAR: RRR Warm and well perfused extremities ABDOMEN: Non-distended SKIN: No rashes or bruising : Deferred NEUROLOGIC: Alert and oriented Normal speech No seizure activity in the ER MUSCULOSKELETAL: Moving all extremities with no apparent injury PSYCHIATRIC: No SI/HI Course Vital Signs 01/08/21 01/08/21 01/08/21 20:21 21:35 22:33 Temperature 99 F 101.1 F H Pulse Rate 96 93 91 Respiratory 20 20 20 Rate Blood Pressure 113/75 114/76 127/72 O2 Sat by Pulse 100 98 99 Oximetry Medical Decision Making - Medical Decision Making Patient was seen and evaluated, history is obtained from the patient and mother bedside as well as review of medical record Patient is on and CT scan Monday was unremarkable Labs today unremarkable Patient with 4 seizures in previous week, will be placed in Obs with seizure precautions for evaluation by neurology Dr Ramirez accepts patient - Lab Data Result diagrams: 01/08/21 21:04 01/08/21 21:04 Lab Results 01/08/21 01/08/21 Range/Units 21:04 21:04 WBC 9.0 (3.8-10.6) k/uL RBC 4.24 (3.80-5.40) m/uL Hgb 13.7 (11.4-16.0) gm/dL Hct 39.5 (34.0-46.0) % MCV 93.0 (80.0-100.0) fL MCH 32.3 (25.0-35.0) pg MCHC 34.7 (31.0-37.0) g/dL RDW 12.3 (11.5-15.5) % Plt Count 193 (150-450) k/uL MPV 8.0 Neutrophils % 83 % Lymphocytes % 10 % Monocytes % 6 % Eosinophils % 1 % Basophils % 0 % Neutrophils # 7.4 (1.3-7.7) k/uL Lymphocytes # 0.9 L (1.0-4.8) k/uL Monocytes # 0.5 (0-1.0) k/uL Eosinophils # 0.1 (0-0.7) k/uL Basophils # 0.0 (0-0.2) k/uL Sodium 139 (137-145) mmol/L Potassium 4.2 (3.5-5.1) mmol/L Chloride 107 (98-107) mmol/L Carbon Dioxide 25 (22-30) mmol/L Anion Gap 7 mmol/L BUN 5 L (7-17) mg/dL Creatinine 0.69 (0.52-1.04) mg/dL Est GFR (CKD-EPI)AfAm >90 (>60 ml/min/1.73 sqM) Est GFR (CKD-EPI)NonAf >90 (>60 ml/min/1.73 sqM) Glucose 90 (74-99) mg/dL Calcium 9.1 (8.4-10.2) mg/dL Total Bilirubin 0.4 (0.2-1.3) mg/dL AST 21 (14-36) U/L ALT 11 (4-34) U/L Alkaline Phosphatase 59 (38-126) U/L Total Protein 6.6 (6.3-8.2) g/dL Albumin 3.8 (3.5-5.0) g/dL Disposition Clinical Impression: Intractable seizure disorder Disposition: ADMITTED IP TO THIS [facility] Condition: Stable Is patient prescribed a controlled substance at d/c from ED?: No Referrals: None,Stated [Primary Care Provider] - 1-2 days
[2021-01-08] MEDS ORDERED: NALOXONE 0.4 MG/ML 1 ML VIAL IV PRN (22:36)
[2021-01-08 22:43] LABS: Amorphous Sediment,Urine Few /hpf; Appearance,Urine Cloudy (Clear); Bilirubin,Urine Negative (Negative); Blood,Urine Negative (Negative); Color,Urine Light Yellow; Glucose,Urine (UA) Negative (Negative); Ketones,Urine Negative (Negative); Leukocyte Esterase,Urine Negative (Negative); Mucus,Urine Rare /hpf; Nitrite,Urine Negative (Negative); Protein,Urine Negative (Negative); RBC,Urine <1 /hpf (0-5); Specific Gravity,Urine 1.014 (1.001-1.035); Squamous Epithelial Cell,Urine 3 /hpf (0-4); Urobilinogen,Urine <2.0 mg/dL (<2.0); WBC,Urine 1 /hpf (0-5)
[2021-01-08 22:46] LABS: Amphetamine Screen,Urine Not Detected (NotDetected); Barbiturate Screen,Urine Not Detected (NotDetected); Benzodiazepines Screen,Urine Detected (NotDetected); Cocaine Screen,Urine Not Detected (NotDetected); Methadone Screen, Urine Not Detected (NotDetected); Opiate Screen,Urine Not Detected (NotDetected); Oxycodone Screen, Urine Not Detected (NotDetected); Phencyclidine Screen,Urine Not Detected (NotDetected); Tricyclic Antidepressant,Urine Not Detected (NotDetected); Urn Cannabinoid Scrn Not Detected (NotDetected)
[2021-01-08] MEDS: SODIUM CHLORIDE 0.9% 1,000 ML IV SCH (23:18)
[2021-01-09 08:23] VITALS: RESP 18
--- NOTE | 2021-01-09 13:43 | P.HPIM ---
History of Present Illness H&P Date: 01/09/21 Chief Complaint: Seizures Ms. Zavala is a 30-year-old female with history of seizure disorder, on 4 antiepileptic medications, vagal nerve stimulator in place, who follows with Dr. Barakat, at [facility] coming in with a chief complaint of seizures. Patient states that in the past 1 week she had 3 episodes of seizures. Yesterday, she had a witnessed seizure by her mother. Mother states that the patient had jerky movements of her whole body with eyes rolling. But no reported loss of bladder or bowel control or tongue bite. Patient has vagal neurostimulator which is at the end of battery life. She has an upcoming appointment at [facility] on Monday. Patient denies missing any of her antiseizure medications. Patient denies having any trauma related to her seizures. On review of systems patient denies having any chest pain or palpitations. No cough or difficulty in breathing. No fevers chills or rigors. No abdominal pain nausea vomiting or diarrhea. No dysuria or hematuria. No exposure to sick contacts. On reviewing vitals at the time of admission temperature of 101.1, heart rate 91, blood pressure 127/72, saturating at 90% on room air with heart rate 91. Patient had blood work done showing white count of 9, hemoglobin 13.7, platelets 193. Sodium 139, potassium 4.2, chloride 107, bicarb 25, BUN 5, creatinine 0.69. AST 80 within normal limits. Urine analysis negative for nitrites and leukocyte esterase. UDS positive for benzos. Influenza PCR and obles Virus PCR negative. She is admitted for further management and neurology consult. Review of Systems REVIEW OF SYSTEMS: CONSTITUTIONAL: No fever, no malaise, no fatigue. HEENT: No recent visual problems or hearing problems. Denied any sore throat. CARDIOVASCULAR: No chest pain, orthopnea, PND, no palpitations, no syncope. PULMONARY: no hemoptysis. GASTROINTESTINAL: No diarrhea, no nausea, no vomiting, no abdominal pain. NEUROLOGICAL: As per HPI HEMATOLOGICAL: Denies any bleeding or petechiae. GENITOURINARY: Denies any burning micturition, frequency, or urgency. MUSCULOSKELETAL/RHEUMATOLOGICAL: Denies any joint pain, swelling, or any muscle pain. ENDOCRINE: Denies any polyuria or polydipsia. The rest of the 14-point review of systems is negative. Past Medical History Past Medical History: Seizure Disorder Additional Past Medical History / Comment(s): lupus History of Any Multi-Drug Resistant Organisms: None Reported Past Surgical History: No Surgical Hx Reported Additional Past Surgical History / Comment(s): Vagus nerve stimulator Past Anesthesia/Blood Transfusion Reactions: No Reported Reaction Past Psychological History: Anxiety Smoking Status: Never smoker Past Alcohol Use History: Occasional Past Drug Use History: Marijuana - Past Family History family Family Medical History: No Reported History Medications and Allergies Home Medications Medication Instructions Recorded Confirmed Type Perampanel [Fycompa] 8 mg PO DAILY 04/20/20 01/08/21 History Cenobamate [Xcopri] 200 mg PO DAILY 11/03/20 01/08/21 History SUMAtriptan SUCCINATE [Imitrex] 100 mg PO DAILY PRN 11/03/20 01/08/21 History Zonisamide [Zonegran] 400 mg PO DAILY 12/20/20 01/08/21 History Valtoco 20mg/2 Sprays 10 mg NASAL DAILY PRN 01/04/21 01/08/21 History Allergies Allergy/AdvReac Type Severity Reaction Status Date / Time strawberries AdvReac Rash/Hives Uncoded 01/08/21 22:15 Physical Exam Vitals: Vital Signs Temp Pulse Pulse Resp BP BP Pulse Ox 01/09/21 08:00 70 18 01/09/21 07:00 97.8 F 70 18 105/65 97 01/09/21 04:45 98.0 F 64 16 103/60 96 01/09/21 00:15 99.0 F 88 18 107/67 98 01/08/21 23:51 99.9 F H 98 20 112/71 98 01/08/21 22:33 101.1 F H 91 20 127/72 99 01/08/21 21:35 93 20 114/76 98 01/08/21 20:21 99 F 96 20 113/75 100 Intake and Output 01/08/21 01/09/21 01/09/21 22:59 06:59 14:59 Other: # Voids 1 1 Weight 72.575 kg 72.575 kg PHYSICAL EXAMINATION: GENERAL: The patient is alert and oriented x3, not in any acute distress. Well developed, well nourished. HEENT: Pupils are round and equally reacting to light. EOMI. No scleral icterus. No conjunctival pallor. Normocephalic, atraumatic. No pharyngeal erythema. No thyromegaly. CARDIOVASCULAR: S1 and S2 present. No murmurs, rubs, or gallops. PULMONARY: Bilateral breath sounds are positive. No wheeze or crackles. ABDOMEN: Soft, nontender, nondistended, normoactive bowel sounds. No palpable organomegaly. MUSCULOSKELETAL: No joint swelling or deformity. EXTREMITIES: No cyanosis, clubbing, or pedal edema. NEUROLOGICAL: Gross neurological examination did not reveal any focal deficits. SKIN: No rashes. Results CBC & Chem 7: 01/08/21 21:04 01/08/21 21:04 Labs: Abnormal Lab Results - Last 24 Hours (Table) 01/08/21 01/08/21 01/08/21 Range/Units 21:04 21:04 21:04 Lymphocytes # 0.9 L (1.0-4.8) k/uL BUN 5 L (7-17) mg/dL Urine Appearance Cloudy H (Clear) Amorphous Sediment Few H (None) /hpf Urine Mucus Rare H (None) /hpf U Benzodiazepines Scrn Detected H (NotDetected) Thrombosis Risk Factor Assmnt - Choose All That Apply Any of the Below Risk Factors Present?: No Other Risk Factors: No Other congenital or acquired thrombophilia - If yes, enter type in comment: No Thrombosis Risk Factor Assessment Level: Very Low Risk Assessment and Plan Assessment: ASSESSMENT Intractable Seizure disorder Vagal Nerve stimulator in place History of anxiety disorder PLAN: Patient is on 4 anti-epileptics and has a vagal nerve stimulator place, but still had seizures. We will consult neurology for further recommendations. Patient follows with Dr. Barakat, [place] [facility], has an upcoming appointment on Monday with him. We will continue with seizure precautions. Patient's labs and vitals currently within normal limits. Further recommendations to follow depending on the progress of the patient. The treatment plan was discussed in detail with the patient and mother at bedside today.
[2021-01-09] MEDS ORDERED: SUMAtriptan succinate 50 MG TAB PO PRN (13:48)
[2021-01-09] MEDS ORDERED: ZONISAMIDE 100 MG CAP PO SCH (14:00)
[2021-01-09] MEDS ORDERED: PERAMPANEL 8 MG PO SCH (14:00)
[2021-01-09] MEDS ORDERED: CENOBAMATE 200 MG PO SCH (14:00)
[2021-01-09] MEDS: SODIUM CHLORIDE 0.9% 1,000 ML IV SCH (14:30)
[2021-01-09 15:08] VITALS: BP 103/67; PULSE 79; TEMP 98.6
--- NOTE | 2021-01-09 17:31 | P.CNNES ---
History of Present Illness Consult date: 01/09/21 Reason for Consult: breakthrough seizure Chief complaint: breakthrough seizure History of Present Illness: The patient is a 30-year-old female who is seen in neurologic consultation on January 09, 2021, via teleneurology. Ms. Zavala has a history of chronic seizure disorder. She reportedly has had seizures since she was a child. The patient reportedly has been having seizures since she was [age] years of age. She has more seizures during the week of her menstrual period. The patient reports because of her current control method, her menstrual period is variable. She does follow with a neurologist. She has an appointment scheduled to see him, MondayJanuary 11, at 3 PM. The patient denies having any seizures, since admission to the hospital. The patient's mother is present at the bedside at the time of the evaluation. She and the patient reports that she sometimes has several seizures, weekly. Apparently the reason the patient was brought into the emergency department on this occasion is because, according to her mother, this seizure presented differently than her other seizures. The patient was reportedly "barking like a dog", then she went into a generalized tonic-clonic seizure. There have been no recent changes in the patient's medications. The patient denies missing any of her medications. At the patient reports that she did not call her neurologist, after experiencing so many seizures this week. She reports that she has been advised to take Valium nasal spray, for breakthrough seizures. The patient reportedly did take this yesterday and it was effective. According to the patient's mother, the patient has bilateral vagus nerve stimulators, one of which needs to be replaced. In addition to the vagus nerve stimulators, the patient also takes 3 antiepileptic medications and the Valium nasal spray for breakthrough. Past Medical History Past Medical History: Seizure Disorder Additional Past Medical History / Comment(s): lupus History of Any Multi-Drug Resistant Organisms: None Reported Past Surgical History: No Surgical Hx Reported Additional Past Surgical History / Comment(s): Vagus nerve stimulator Past Anesthesia/Blood Transfusion Reactions: No Reported Reaction Past Psychological History: Anxiety Smoking Status: Never smoker Past Alcohol Use History: Occasional Past Drug Use History: Marijuana - Past Family History family Family Medical History: No Reported History Medications and Allergies Home Medications Medication Instructions Recorded Confirmed Type Perampanel [Fycompa] 8 mg PO DAILY 04/20/20 01/08/21 History Cenobamate [Xcopri] 200 mg PO DAILY 11/03/20 01/08/21 History SUMAtriptan SUCCINATE [Imitrex] 100 mg PO DAILY PRN 11/03/20 01/08/21 History Zonisamide [Zonegran] 400 mg PO DAILY 12/20/20 01/08/21 History Valtoco 20mg/2 Sprays 10 mg NASAL DAILY PRN 01/04/21 01/08/21 History Allergies Allergy/AdvReac Type Severity Reaction Status Date / Time strawberries AdvReac Rash/Hives Uncoded 01/08/21 22:15 Physical Examination - Vital Signs Vital Signs: Vital Signs Temp Pulse Pulse Resp BP BP Pulse Ox 01/09/21 08:00 70 18 01/09/21 07:00 97.8 F 70 18 105/65 97 01/09/21 04:45 98.0 F 64 16 103/60 96 01/09/21 00:15 99.0 F 88 18 107/67 98 01/08/21 23:51 99.9 F H 98 20 112/71 98 01/08/21 22:33 101.1 F H 91 20 127/72 99 01/08/21 21:35 93 20 114/76 98 01/08/21 20:21 99 F 96 20 113/75 100 Intake and Output 01/08/21 01/09/21 01/09/21 22:59 06:59 14:59 Other: # Voids 1 1 Weight 72.575 kg 72.575 kg Gen.: The patient is reclining in the bed. She is well-nourished and in no acute distress. HEENT: Head is atraumatic, normocephalic. Fundus not visualized. There is no scleral icterus. Mucous membranes are moist. Neck: Supple without carotid bruits Heart: Regular rate and rhythm Lungs: Clear to auscultation Extremities: Without edema Neurological examination Mental status: The patient is awake, alert and oriented 3. Her speech is clear. There is no dysarthria or aphasia. Cranial nerves: Pupils are equal, round and reactive to light. Visual matos are full to confrontation. Extraocular movements are intact. There is no nystagmus. Facial sensation is intact. There is no facial asymmetry. Hearing is grossly intact. Uvula is palate are midline. Shoulder shrug is symmetric. Tongue protrudes midline. There is no evidence of laceration. Motor: Strength is 5/5 throughout. Coordination: Finger to nose and [id number] testing are intact. Sensation: Grossly intact to light touch throughout. There is no extinction with double simultaneous stimulation. Deep tendon reflexes: 2+/4+ in the upper extremities. 3+/4+ at the knees. Achilles reflexes are 2+/4+. Plantar responses are flexor bilaterally. Results - Laboratory Findings CBC and BMP: 01/08/21 21:04 01/08/21 21:04 Abnormal Lab Findings: Abnormal Labs 01/08/21 01/08/21 01/08/21 21:04 21:04 21:04 Lymphocytes # 0.9 L BUN 5 L Urine Appearance Cloudy H Amorphous Sediment Few H Urine Mucus Rare H U Benzodiazepines Scrn Detected H Assessment and Plan Assessment: 1. Breakthrough seizure in a patient with long history of seizure disorder and multiple seizures per week. According to the patient's mother, this seizure that brought the patient into the emergency department on this occasion, presented differently than her usual seizures. 2. Reported history of lupus Plan: 1. The patient is neurologically stable for discharge. 2. Patient is advised to follow up with her own neurologist, at her scheduled appointment of January 11, 2021 at 3 PM. She is also advised to ask him what the procedure should be, when she has a breakthrough seizure. She reports that when she has a seizure at work she is required to come into the emergency department. She also reports that she has Valium nasal spray that is to be used for breakthrough seizures. This current seizure that brought her into the emergency department occurred in her home. 3. Patient is advised to continue her current antiepileptic medications, at discharge Time with Patient: Greater than 30 (spent 40 minutes with patient via telemetry neurology)
--- NOTE | 2021-01-11 00:33 | P.DS ---
Providers Date of admission: 01/08/21 22:36 Expected date of discharge: 01/09/21 Attending physician: Karine Ramirez Consults: 01/08/21 22:36 Consult Physician Urgent Consulting Provider: Penny Smith Consult Reason/Comments: recurrent seizures on meds Do you want consulting provider notified?: Yes Primary care physician: Stated None Hospital Course: Ms. Zavala is a 30-year-old female with history of seizure disorder, on 4 antiepileptic medications, vagal nerve stimulator in place, who follows with Dr. Barakat, at [facility] coming in with a chief complaint of seizures. Patient states that in the past 1 week she had 3 episodes of seizures. Yesterday, she had a witnessed seizure by her mother. Mother states that the patient had jerky movements of her whole body with eyes rolling. But no reported loss of bladder or bowel control or tongue bite. Patient has vagal neurostimulator which is at the end of battery life. She has an upcoming appointment at [facility] on Monday. Patient denies missing any of her antiseizure medications. Patient denies having any trauma related to her seizures. On review of systems patient denies having any chest pain or palpitations. No cough or difficulty in breathing. No fevers chills or rigors. No abdominal pain nausea vomiting or diarrhea. No dysuria or hematuria. No exposure to sick contacts. On reviewing vitals at the time of admission temperature of 101.1, heart rate 91, blood pressure 127/72, saturating at 90% on room air with heart rate 91. Patient had blood work done showing white count of 9, hemoglobin 13.7, platelets 193. Sodium 139, potassium 4.2, chloride 107, bicarb 25, BUN 5, creatinine 0.69. AST 80 within normal limits. Urine analysis negative for nitrites and leukocyte esterase. UDS positive for benzos. Influenza PCR and boles Virus PCR negative. She is admitted for further management and neurology consult. Hospital course - Patient did not have any seizure episodes since admission. Neurology was consulted and evaluated the patient via telemetry. She was cleared by them for discharge. Patient and her mother agrees with the plan. They have an appointment with her neurologist on Monday at 3 PM. She is advised to keep up with the appointment. Patient has Valium nasal spray that she uses for breakthrough seizures, that has been helping her to control her seizures. In case she has another episode of seizure she is advised to come back to the ED. DISCHARGE DIAGNOSIS Intractable Seizure disorder Vagal Nerve stimulator in place History of anxiety disorder Follow up- she is advised to follow up with her Neurologist, she has an upcoming appointment on Monday at 3 PM. Also advised follow up with her PCP in 2-3 days. Patient Condition at Discharge: Fair Plan - Discharge Summary New Discharge Prescriptions: Continue Perampanel [Fycompa] 8 mg PO DAILY Cenobamate [Xcopri] 200 mg PO DAILY SUMAtriptan SUCCINATE [Imitrex] 100 mg PO DAILY PRN PRN Reason: Migraine Headache Zonisamide [Zonegran] 400 mg PO DAILY Valtoco 20mg/2 Sprays 10 mg NASAL DAILY PRN PRN Reason: Seizures Discharge Medication List Perampanel [Fycompa] 8 mg PO DAILY 04/20/20 [History] Cenobamate [Xcopri] 200 mg PO DAILY 11/03/20 [History] SUMAtriptan SUCCINATE [Imitrex] 100 mg PO DAILY PRN 11/03/20 [History] Zonisamide [Zonegran] 400 mg PO DAILY 12/20/20 [History] Valtoco 20mg/2 Sprays 10 mg NASAL DAILY PRN 01/04/21 [History] Follow up Appointment(s)/Referral(s): None,Stated [Primary Care Provider] - 1-2 days Patient Instructions/Handouts: Epilepsy (DC) Discharge Disposition: HOME SELF-CARE
== END 2021-01-09 17:00 | disposition home or self-care (01) ==
LOC: EC 20:14 → 6NMEDSUR 22:36
PROVIDERS: ADMIT Internal Medicine; ATTEND Internal Medicine
DX: G40.919 Epilepsy, unspecified, intractable, without status epilepticus (principal); M32.9 Systemic lupus erythematosus, unspecified; G43.909 Migraine, unspecified, not intractable, without status migrainosus; F41.9 Anxiety disorder, unspecified; Z20.822 Contact with and (suspected) exposure to COVID-19; Z79.899 Other long term (current) drug therapy; Z91.018 Allergy to other foods; Z96.82 Presence of neurostimulator
CPT/HCPCS: 96360; 96361; 99285; 36415; 80053; 85025; 81001; 80306; 87636; G0378 ×2

== ENCOUNTER 2021-01-23 14:23 | Emergency (ER) | payer OTHER ==
[2021-01-23] MEDS ORDERED: SODIUM CHLORIDE 0.9% 1,000 ML IV STA (14:44)
--- NOTE | 2021-01-23 15:23 | CT ---
EXAMINATION TYPE: CT brain wo con DATE OF EXAM: 01/23/2021 COMPARISON: 01/04/2021. HISTORY: altered after head injury during seizure yesterday CT DLP: 1029.4 mGycm. Automated Exposure Control for Dose Reduction was Utilized. TECHNIQUE: CT scan of the head is performed without contrast. FINDINGS: There is no acute intracranial hemorrhage, mass effect, or midline shift identified. The ventricles and sulci are within normal limits in size. The globes are intact and the visualized sin uses are clear. There is chronic partial opacification of the right maxillary sinus. IMPRESSION: No acute intracranial hemorrhage, mass effect, or midline shift is seen.
[2021-01-23 15:27] LABS: Basophils % (A) 1 %; Eosinophils # (A) 0.1 k/uL (0-0.7); Eosinophils % (A) 1 %; HCT 38.5 % (34.0-46.0); HGB 13.3 gm/dL (11.4-16.0); Lymphocytes % (A) 15 %; MCH 31.8 pg (25.0-35.0); MCHC 34.5 g/dL (31.0-37.0); MCV 92.3 fL (80.0-100.0); Mean Platelet Volume 7.6; Monocytes # (A) 0.5 k/uL (0-1.0); Monocytes % (A) 7 %; Neutrophils # (A) 5.2 k/uL (1.3-7.7); Neutrophils % (A) 76 %; Platelet Count 244 k/uL (150-450); RBC 4.18 m/uL (3.80-5.40); RDW 12.5 % (11.5-15.5); WBC 6.9 k/uL (3.8-10.6)
[2021-01-23 15:38] LABS: ALT 11 U/L (4-34); AST 18 U/L (14-36); African American GFR (CKD) >90 (>60 ml/min/1.73 sqM); Albumin 3.7 g/dL (3.5-5.0); Alkaline Phosphatase 64 U/L (38-126); Anion Gap 6 mmol/L; Blood Urea Nitrogen 5 mg/dL (7-17); Carbon Dioxide 24 mmol/L (22-30); Chloride 110 mmol/L (98-107); Glucose 67 mg/dL (74-99); Non-African American GFR(CKD) >90 (>60 ml/min/1.73 sqM); Sodium 140 mmol/L (137-145); Total Bilirubin <0.1 mg/dL (0.2-1.3); Total Protein 6.5 g/dL (6.3-8.2)
--- NOTE | 2021-01-23 16:24 | ED ---
Head Injury HPI - General Chief complaint: Head Injury Stated complaint: Seizure, head injury Time Seen by Provider: 01/23/21 14:43 Source: patient Mode of arrival: wheelchair Limitations: no limitations - History of Present Illness Initial comments: Diallo is a 30-year-old female with extensive history of seizure disorder for which she is on for medications. Patient's been having frequent seizures and during a seizure yesterday hit the front of her head. Today mom felt the patient might be more confused than usual didn't know if this was related to head injury or her frequent seizures [place] the ER for evaluation. Patient claims a mild headache. He said admission for recurrent seizures and follows closely with her neurologist outpatient. - Related Data Home Medications Medication Instructions Recorded Confirmed Perampanel [Fycompa] 8 mg PO DAILY 04/20/20 01/08/21 Cenobamate [Xcopri] 200 mg PO DAILY 11/03/20 01/08/21 SUMAtriptan SUCCINATE [Imitrex] 100 mg PO DAILY PRN 11/03/20 01/08/21 Zonisamide [Zonegran] 400 mg PO DAILY 12/20/20 01/08/21 Valtoco 20mg/2 Sprays 10 mg NASAL DAILY PRN 01/04/21 01/08/21 Allergies/Adverse reactions: Allergies Allergy/AdvReac Type Severity Reaction Status Date / Time strawberries AdvReac Rash/Hives Uncoded 01/23/21 14:40 Review of Systems ROS Statement: Those systems with pertinent positive or pertinent negative responses have been documented in the HPI. ROS Other: All systems not noted in ROS Statement are negative. Past Medical History Past Medical History: Seizure Disorder Additional Past Medical History / Comment(s): lupus History of Any Multi-Drug Resistant Organisms: None Reported Past Surgical History: No Surgical Hx Reported Additional Past Surgical History / Comment(s): Vagus nerve stimulator Past Anesthesia/Blood Transfusion Reactions: No Reported Reaction Past Psychological History: Anxiety Smoking Status: Never smoker Past Alcohol Use History: Occasional Past Drug Use History: Marijuana - Past Family History family Family Medical History: No Reported History General Exam - General Exam Comments Initial Comments: Physical Exam GENERAL: Patient is well-developed and well-nourished. Patient is nontoxic and well-hydrated and is in no distress. HENT: Small hematoma with abrasion at the hairline of the forehead EYES: PERRL, EOMI PULMONARY: Unlabored respirations. CARDIOVASCULAR: RRR Warm and well perfused extremities ABDOMEN: Non-distended SKIN: No rashes or bruising : Deferred NEUROLOGIC: Alert and oriented to person, place and events, speech is somewhat slurred patient appears somewhat sleepy MUSCULOSKELETAL: Moving all extremities with no apparent injury PSYCHIATRIC: No SI/HI Limitations: no limitations Course Vital Signs 01/23/21 01/23/21 01/23/21 14:36 16:00 17:14 Temperature 97.6 F 97.2 F L Pulse Rate 104 H 100 96 Respiratory 20 18 18 Rate Blood Pressure 106/75 110/62 105/66 O2 Sat by Pulse 97 98 98 Oximetry Medical Decision Making - Medical Decision Making The patient was seen and evaluated labs and imaging were ordered and resulted with no significant abnormalities Results were discussed with patient and mother bedside I discussed options for observation due to recurrent seizures but mother is comfortable with plan for discharge home and outpatient follow-up with neurology. - Lab Data Result diagrams: 01/23/21 14:49 01/23/21 14:49 Lab Results 01/23/21 01/23/21 Range/Units 14:49 14:49 WBC 6.9 (3.8-10.6) k/uL RBC 4.18 (3.80-5.40) m/uL Hgb 13.3 (11.4-16.0) gm/dL Hct 38.5 (34.0-46.0) % MCV 92.3 (80.0-100.0) fL MCH 31.8 (25.0-35.0) pg MCHC 34.5 (31.0-37.0) g/dL RDW 12.5 (11.5-15.5) % Plt Count 244 (150-450) k/uL MPV 7.6 Neutrophils % 76 % Lymphocytes % 15 % Monocytes % 7 % Eosinophils % 1 % Basophils % 1 % Neutrophils # 5.2 (1.3-7.7) k/uL Lymphocytes # 1.0 (1.0-4.8) k/uL Monocytes # 0.5 (0-1.0) k/uL Eosinophils # 0.1 (0-0.7) k/uL Basophils # 0.0 (0-0.2) k/uL Sodium 140 (137-145) mmol/L Potassium 4.0 (3.5-5.1) mmol/L Chloride 110 H (98-107) mmol/L Carbon Dioxide 24 (22-30) mmol/L Anion Gap 6 mmol/L BUN 5 L (7-17) mg/dL Creatinine 0.73 (0.52-1.04) mg/dL Est GFR (CKD-EPI)AfAm >90 (>60 ml/min/1.73 sqM) Est GFR (CKD-EPI)NonAf >90 (>60 ml/min/1.73 sqM) Glucose 67 L (74-99) mg/dL Calcium 9.0 (8.4-10.2) mg/dL Total Bilirubin <0.1 L (0.2-1.3) mg/dL AST 18 (14-36) U/L ALT 11 (4-34) U/L Alkaline Phosphatase 64 (38-126) U/L Total Protein 6.5 (6.3-8.2) g/dL Albumin 3.7 (3.5-5.0) g/dL Disposition Clinical Impression: Closed head injury, Intractable seizure disorder Disposition: HOME SELF-CARE Condition: Stable Instructions (If sedation given, give patient instructions): Seizure/Epilepsy Discharge Instructions & Follow-Up, Concussion (ED) Is patient prescribed a controlled substance at d/c from ED?: No Referrals: Nonstaff,Physician [Primary Care Provider] - 1-2 days
[2021-01-23 17:10] VITALS: RESP 18
[2021-01-23 17:15] VITALS: BP 105/66; PULSE 96; TEMP 97.2
== END 2021-01-23 17:14 | disposition home or self-care (01) ==
LOC: EC 14:23
DX: S09.90XA Unspecified injury of head, initial encounter (principal); G40.919 Epilepsy, unspecified, intractable, without status epilepticus; M32.9 Systemic lupus erythematosus, unspecified; W22.8XXA Striking against or struck by other objects, initial encounter
CPT/HCPCS: 70450; 80053; 85025; 96360; 99284